=== PATIENT | female | born 1940 | race Caucasian/White ===

== ENCOUNTER 2019-01-07 03:48 | Inpatient (IN) ==
[2019-01-07] MEDS ORDERED: ONDANSETRON 4 MG ODT TABLET SL ONE ×2 (04:08→04:39)
[2019-01-07] MEDS ORDERED: ONDANSETRON (PP) 4 MG TABLET SL ONE (04:11)
[2019-01-07] MEDS ORDERED: CIPROFLOXACIN 500 MG TABLET PO ONE (04:11)
[2019-01-07] MEDS ORDERED: PHENAZOPYRIDINE 200 MG TABLET PO ONE (04:11)
[2019-01-07] MEDS ORDERED: PHENAZOPYRIDINE 200 MG PO ONE (04:12)
--- NOTE | 2019-01-07 04:14 | Emergency Department Note ---
Female Urogenital HPI - General Chief complaint: Urogenital-Female Stated complaint: urogenital female Time Seen by Provider: 01/07/19 04:11 Source: patient Mode of arrival: ambulatory Limitations: no limitations - History of Present Illness HPI Narrative: This patient has had bilateral flank pain for 4 days and is developed dysuria and frequency with a foul-smelling urine. Also some nausea this evening. - Related Data Previous Rx's Medication Instructions Recorded Ciprofloxacin [Cipro] 500 mg PO BID #14 tab 01/07/19 Ondansetron [Zofran ODT] 4 mg SL Q4-6HP PRN #10 tab 01/07/19 Allergies Allergy/AdvReac Type Severity Reaction Status Date / Time No Known Drug Allergies Allergy Unverified 01/07/19 03:49 Review of Systems All systems ED: reviewed and negative except as stated. Past Medical History - Social History smoking status: Never smoker Physical Exam Limitations: no limitations General appearance: alert Head: atraumatic Eye: Present: normal appearance ENT: normal exam Neck: Present: normal inspection Chest: Present: normal inspection Respiratory: Present: normal lung sounds bilaterally Cardiovascular: Present: regular rate, normal rhythm, normal heart sounds Abdominal: Present: soft, tenderness. Absent: distention, guarding, rebound, rigidity Abdominal tenderness: Present: suprapubic, mild Back: Present: CVA tenderness (R), CVA tenderness (L) Neurological: Present: alert Psychiatric: Present: normal affect Skin: Present: warm, dry Course Vital Signs Temperature 98.4 F 01/07/19 03:49 Pulse Rate 81 01/07/19 03:49 Respiratory Rate 18 01/07/19 03:49 Blood Pressure 141/78 01/07/19 03:49 Pulse Oximetry (%) 96 01/07/19 03:49 Temperature 100.4 F H 01/07/19 06:45 Pulse Rate 74 01/07/19 08:09 Respiratory Rate 18 01/07/19 03:49 Blood Pressure 122/60 01/07/19 07:31 Pulse Oximetry (%) 94 01/07/19 08:09 Urogenital-Female - [facility] Narrative Medical decision making narrative: This patient has a urinary tract infection but is having pretty significant back pain. She is never had a certain kidney stone she does have a lot of blood in her urine. I will do a CT KUB. Final disposition on this patient per Dr. Londono. - Lab Data Lab results reviewed: Yes I reviewed the patient's lab results. Result diagrams: 01/07/19 05:35 01/07/19 05:35 Lab Results 01/07/19 01/07/19 01/07/19 Range/Units 05:35 05:35 05:35 WBC 5.7 (4.5-11.0) K/mcL RBC 4.18 (4.00-5.20) M/mcL Hgb 13.1 (12.0-15.0) g/dL Hct 39.4 (36.0-48.0) % MCV 94.3 (80.0-100.0) fL MCH 31.3 (26.0-34.0) pg MCHC 33.3 (31.0-36.0) g/dL RDW 13.7 (11.5-14.5) % Plt Count 119 L (140-440) K/mcL MPV 6.8 L (7.4-10.4) fL Gran % 93.3 H (38.0-78.0) % Lymph % (Auto) 6.1 L (15.5-49.0) % [place] % (Auto) 0.3 L (1.0-12.0) % Eos % (Auto) 0.3 (0.0-7.0) % Baso % (Auto) 0 (0.0-2.0) % Gran # 5.3 (1.8-8.0) K/mcL Lymph # (Auto) 0.3 L (1.5-4.8) K/mcL [place] # (Auto) 0 L (0.1-0.9) K/mcL Eos # (Auto) 0 (0.0-0.7) K/mcL Baso # (Auto) 0 (0.0-0.3) K/mcL VBG Lactic Acid 2.2 H (0.5-2.0) mmol/L Sodium 142 (133-145) mmol/L Potassium 3.6 (3.3-5.1) mmol/L Chloride 107 (96-108) mmol/L Carbon Dioxide 21 L (22-30) mmol/L Anion Gap 14.0 (8-16) BUN 23 (8-23) mg/dl Creatinine 1.0 (0.6-1.1) mg/dl GFR Calculation 54 Glucose 105 (70-105) mg/dL Calcium 8.7 (8.6-10.4) mg/dl Total Bilirubin 0.8 (0.0-1.0) mg/dL AST 25 (0-37) U/l ALT 19 (0-40) U/l Alkaline Phosphatase 87 (39-117) U/L Total Protein 6.7 (5.9-8.4) gm/dL Albumin 3.7 (3.2-5.2) gm/dL Globulin 3.0 (2.2-3.7) gm/dL Albumin/Globulin Ratio 1.2 (1.0-2.3) Urine Color Urine Appearance Urine pH (5.0-9.0) Ur Specific [place] (1.000-1.035) Urine Protein (NEG) mg/dL Urine Glucose (UA) (NEG) mg/dL Urine Ketones (NEG) mg/dL Urine Occult Blood (<0.03) mg/dL Urine Nitrate (NEG) Urine Bilirubin (NEG) mg/dL Urine Urobilinogen (NEG) mg/dL Ur Leukocyte Esterase (NEG) /uL Urine RBC (0-1) /hpf Urine WBC (0-4) /hpf Ur Squamous Epith Cells (0-4) /hpf Urine Bacteria (0) /hpf Urine Mucus (0) /hpf Ur Culture Indicated? 01/07/19 Range/Units 08:00 WBC (4.5-11.0) K/mcL RBC (4.00-5.20) M/mcL Hgb (12.0-15.0) g/dL Hct (36.0-48.0) % MCV (80.0-100.0) fL MCH (26.0-34.0) pg MCHC (31.0-36.0) g/dL RDW (11.5-14.5) % Plt Count (140-440) K/mcL MPV (7.4-10.4) fL Gran % (38.0-78.0) % Lymph % (Auto) (15.5-49.0) % [place] % (Auto) (1.0-12.0) % Eos % (Auto) (0.0-7.0) % Baso % (Auto) (0.0-2.0) % Gran # (1.8-8.0) K/mcL Lymph # (Auto) (1.5-4.8) K/mcL [place] # (Auto) (0.1-0.9) K/mcL Eos # (Auto) (0.0-0.7) K/mcL Baso # (Auto) (0.0-0.3) K/mcL VBG Lactic Acid (0.5-2.0) mmol/L Sodium (133-145) mmol/L Potassium (3.3-5.1) mmol/L Chloride (96-108) mmol/L Carbon Dioxide (22-30) mmol/L Anion Gap (8-16) BUN (8-23) mg/dl Creatinine (0.6-1.1) mg/dl GFR Calculation Glucose (70-105) mg/dL Calcium (8.6-10.4) mg/dl Total Bilirubin (0.0-1.0) mg/dL AST (0-37) U/l ALT (0-40) U/l Alkaline Phosphatase (39-117) U/L Total Protein (5.9-8.4) gm/dL Albumin (3.2-5.2) gm/dL Globulin (2.2-3.7) gm/dL Albumin/Globulin Ratio (1.0-2.3) Urine Color Yellow Urine Appearance Cloudy Urine pH 6.0 (5.0-9.0) Ur Specific [place] 1.009 (1.000-1.035) Urine Protein 100 A (NEG) mg/dL Urine Glucose (UA) Negative (NEG) mg/dL Urine Ketones Neg (NEG) mg/dL Urine Occult Blood >=1.0 A (<0.03) mg/dL Urine Nitrate Neg (NEG) Urine Bilirubin Neg (NEG) mg/dL Urine Urobilinogen Neg (NEG) mg/dL Ur Leukocyte Esterase 500 A (NEG) /uL Urine RBC > 182 H (0-1) /hpf Urine WBC 160 H (0-4) /hpf Ur Squamous Epith Cells < 1 (0-4) /hpf Urine Bacteria Many A (0) /hpf Urine Mucus Few (0) /hpf Ur Culture Indicated? Yes Disposition Pt seen by SOFTWARE APPLICATIONS SPECIALIST/PA only: No Clinical Impression: Urinary tract infection Disposition: Still a Patient Condition: Good Instructions: Urinary Tract Infection in Women (ED) Prescriptions: Ciprofloxacin [Cipro] 500 mg PO BID #14 tab Ondansetron [Zofran ODT] 4 mg SL Q4-6HP PRN #10 tab PRN Reason: Nausea Referrals: Magdi Voss MD [Primary Care Provider] - Time of Disposition: 04:13
[2019-01-07] MEDS ORDERED: LACTATED RINGERS 1,000 ML IV ONE ×2 (05:19→06:41)
[2019-01-07] MEDS ORDERED: ONDANSETRON 4 MG/2 ML VIAL IV ONE ×2 (05:23→15:55)
[2019-01-07 06:27] LABS: Basophils # (Auto) 0 K/mcL (0.0-0.3); Basophils % (Auto) 0 % (0.0-2.0); Eosinophils # (Auto) 0 K/mcL (0.0-0.7); Eosinophils % (Auto) 0.3 % (0.0-7.0); Granulocytes % (Auto) 93.3 % (38.0-78.0); Hematocrit 39.4 % (36.0-48.0); Hemoglobin 13.1 g/dL (12.0-15.0); Lymphocytes # (Auto) 0.3 K/mcL (1.5-4.8); Lymphocytes % (Auto) 6.1 % (15.5-49.0); Mean Cell Volume 94.3 fL (80.0-100.0); Mean Corpuscular HGB Conc 33.3 g/dL (31.0-36.0); Mean Platelet Volume 6.8 fL (7.4-10.4); Monocytes # (Auto) 0 K/mcL (0.1-0.9); Monocytes % (Auto) 0.3 % (1.0-12.0); Platelet Count 119 K/mcL (140-440); RBC 4.18 M/mcL (4.00-5.20); Red Cell Distribution Width 13.7 % (11.5-14.5); WBC 5.7 K/mcL (4.5-11.0)
[2019-01-07 06:44] LABS: ALT/SGPT 19 U/l (0-40); AST/SGOT 25 U/l (0-37); Albumin 3.7 gm/dL (3.2-5.2); Albumin/Globulin Ratio 1.2 (1.0-2.3); Alkaline Phosphatase 87 U/L (39-117); Bilirubin,Total 0.8 mg/dL (0.0-1.0); Blood Urea Nitrogen 23 mg/dl (8-23); Calcium 8.7 mg/dl (8.6-10.4); Carbon Dioxide 21 mmol/L (22-30); Chloride 107 mmol/L (96-108); Glomerular Filtration Rate 54; Glucose 105 mg/dL (70-105); Potassium 3.6 mmol/L (3.3-5.1); Sodium 142 mmol/L (133-145)
[2019-01-07 08:53] LABS: Appearance,Urine CLOUDY; Bacteria,Urine MANY /hpf (0); Bilirubin,Urine NEG (NEG); Color,Urine YELLOW; Culture Indicated,Urine YES; Glucose,Urine (UA) NEGATIVE (NEG); Ketones,Urine NEG (NEG); Leukocyte Esterase,Urine 500 /uL (NEG); Mucus,Urine FEW /hpf (0); Nitrate,Urine NEG (NEG); Protein,Urine 100 mg/dL (NEG); Specific Gravity,Urine 1.009 (1.000-1.035); Urine Blood >=1.0 mg/dL (<0.03); Urine RBC > 182 /hpf (0-1); Urine Squamous Epithelial Cell < 1 /hpf (0-4); Urine WBC 160 /hpf (0-4); Urobilinogen,Urine NEG (NEG)
[2019-01-07] MEDS ORDERED: HYDROmorphone 2 MG/ML VIAL IV PRN (09:15)
[2019-01-07] MEDS ORDERED: ACETAMINOPHEN 325 MG TABLET PO ONE (09:16)
[2019-01-07] MEDS ORDERED: METOCLOPRAMIDE 10 MG/2 ML VIAL IV ONE (09:16)
--- NOTE | 2019-01-07 09:36 | Cat Scan Report ---
CLINICAL INFORMATION: Urinary tract infection and bilateral flank pain COMPARISON: None. TECHNIQUE: The abdomen was imaged without oral or IV contrast, scanning from the diaphragm to the symphysis pubis. Sagittal and coronal reformats were created. The radiation exposure was limited using dose reduction technology. FINDINGS: There is mild pulmonary fibrosis in both lung bases. The heart is mildly enlarged. Evaluation the abdominal organs without contrast is somewhat limited. The liver and spleen are normal in size and homogeneous. There is no apparent mass or inflammation in the pancreas. The gallbladder and bile ducts are normal. The adrenals are normal in size and symmetric. There is moderate hydronephrosis in the right kidney with milder hydronephrosis in left kidney. A 2.4 cm cortical cyst is present in the middle third of the right kidney. Patient has bubbles of air within the calyces in the right kidney. In the right renal pelvis near the ureteropelvic junction there is a 1.4 x 1.8 cm calculus. The right ureter is mildly dilated. The distal third of the right ureter there is a nonobstructing 2 x 3 mm calculus seen on axial image #138. At the right ureterovesical junction there is a 1 x 1.5 mm calculus seen on image #165. In the left kidney there are two calyceal stones which are not causing obstruction. The larger is located posteriorly in the lower third and measures 4 x 9 mm. Proximal right ureter is borderline dilated but tapers to normal caliber, without evidence of a stone or mass in or adjacent to the ureter. There is no air within the collecting system on the left side. There is low-grade stranding of the perinephric fat bilaterally. No urinoma or renal abscess are present. There is moderate amount of air within the urinary bladder and normal amount of urine. No mass is seen on this nonenhanced study and the wall does not appear to be abnormally thickened or inflamed. The uterus is absent and neither ovary can be identified separate from adjacent unopacified bowel. There are numerous diverticula throughout the colon but there is no evidence of acute diverticulitis. The small bowel pattern is normal. No adenopathy or ascites are present. There are calcified plaques along the wall of a normal caliber but mildly tortuous abdominal aorta. Severe degenerative disc disease is present in the mid and upper lumbar spine. IMPRESSION: Air within the urinary bladder and right renal collecting system. If the patient had recently been catheterized, this could account for presence of air in the bladder and the patient might have refluxed air from the bladder into the right kidney. If the patient has not been catheterized, this may be a sign of infection with a gas-forming organism. Bilateral kidney stones with bilateral hydronephrosis, right worse than left Small stones in the distal right ureter, including a 1.5 mm stone at the right ureterovesical junction. Interpreted and Authenticated by: Roland Campos 01/07/19
[2019-01-07] MEDS ORDERED: PIPERACILLIN SODIUM/TAZOBACTAM 3.375 GM in DEXTROSE 5% IN WATER 50 ML IV ONE (09:43)
--- NOTE | 2019-01-07 09:54 | XRay Report ---
HISTORY: Shortness of breath and infection FINDINGS: There is a generalized haziness in the lung parenchyma bilaterally. There is no lobar consolidation. The heart is mildly enlarged. The pulmonary vessels appear engorged. There is no pleural effusion and no adenopathy is detected. IMPRESSION: Mild pulmonary vascular congestion. Superimposed mild generalized pneumonia cannot be excluded. Interpreted and Authenticated by: Roland Campos 01/07/19
[2019-01-07] MEDS ORDERED: KETOROLAC 15 MG/ML VIAL IV ONE ×2 (10:04→21:43)
--- NOTE | 2019-01-07 10:18 | Emergency Department Note ---
Female Urogenital HPI - General Chief complaint: Urogenital-Female Stated complaint: urogenital female Time Seen by Provider: 01/07/19 04:11 Source: patient Mode of arrival: ambulatory Limitations: no limitations - History of Present Illness HPI Narrative: 9:25 AM - this 78-year-old female is here with flank pain and urinary tract type of symptoms. See history and physical dictated by Dr. goodwin. I am seeing patient after change in shift. On my exam she began to have rigors, panting breathing, be less interactive almost obtunded. Tachycardia in the 125- 130 range. I added a troponin, chest x-ray, blood cultures. 9:35 AM - poorly responsive with arms tight across her chest. Has had recent narcotics for her pain that was quite significant but does not seem to respond to palpation of her abdomen or palpation of her costovertebral angles. 9:42 AM - EKG shows flat T waves in aVL, I, V2. No ACS. 10:01 AM - CT scan report demonstrates bilateral ureteral stones with bilateral hydronephrosis. Patient therefore is a pyelo-nephritis with sepsis. Her mental status change with obtundation appears to be due to hydromorphone given for pain. Pending troponin. After that we will seek admission. Has been given Zosyn after blood cultures were administered. - Related Data Previous Rx's Medication Instructions Recorded Ciprofloxacin [Cipro] 500 mg PO BID #14 tab 01/07/19 Ondansetron [Zofran ODT] 4 mg SL Q4-6HP PRN #10 tab 01/07/19 Allergies Allergy/AdvReac Type Severity Reaction Status Date / Time No Known Drug Allergies Allergy Unverified 01/07/19 03:49 Past Medical History - Social History smoking status: Never smoker Physical Exam Limitations: no limitations General appearance: alert Course Vital Signs Temperature 98.4 F 01/07/19 03:49 Pulse Rate 81 01/07/19 03:49 Respiratory Rate 18 01/07/19 03:49 Blood Pressure 141/78 01/07/19 03:49 Pulse Oximetry (%) 96 01/07/19 03:49 Temperature 99.1 F H 01/07/19 10:37 Pulse Rate 107 H 01/07/19 14:10 Respiratory Rate 17 01/07/19 11:44 Blood Pressure 97/57 01/07/19 14:10 Pulse Oximetry (%) 92 01/07/19 11:44 Urogenital-Female - MDM Narrative Medical decision making narrative: Labs include a white count is normal surprisingly at 5.7. Lactic acid however at 2.2 CMP was unremarkable. Urine was with gross changes/ab normality of high leukocyte esterase and RBCs 182 and many bacteria. 10:07 AM - (approximately) Toradol 50 mg to help with her discomfort and fever. Creatinine was 1.0. - Lab Data Lab results reviewed: Yes I reviewed the patient's lab results. Result diagrams: 01/07/19 05:35 01/07/19 05:35 Lab Results 01/07/19 01/07/19 01/07/19 Range/Units 05:35 05:35 05:35 WBC 5.7 (4.5-11.0) K/mcL RBC 4.18 (4.00-5.20) M/mcL Hgb 13.1 (12.0-15.0) g/dL Hct 39.4 (36.0-48.0) % MCV 94.3 (80.0-100.0) fL MCH 31.3 (26.0-34.0) pg MCHC 33.3 (31.0-36.0) g/dL RDW 13.7 (11.5-14.5) % Plt Count 119 L (140-440) K/mcL MPV 6.8 L (7.4-10.4) fL Gran % 93.3 H (38.0-78.0) % Lymph % (Auto) 6.1 L (15.5-49.0) % [place] % (Auto) 0.3 L (1.0-12.0) % Eos % (Auto) 0.3 (0.0-7.0) % Baso % (Auto) 0 (0.0-2.0) % Gran # 5.3 (1.8-8.0) K/mcL Lymph # (Auto) 0.3 L (1.5-4.8) K/mcL [place] # (Auto) 0 L (0.1-0.9) K/mcL Eos # (Auto) 0 (0.0-0.7) K/mcL Baso # (Auto) 0 (0.0-0.3) K/mcL VBG Lactic Acid 2.2 H (0.5-2.0) mmol/L Sodium 142 (133-145) mmol/L Potassium 3.6 (3.3-5.1) mmol/L Chloride 107 (96-108) mmol/L Carbon Dioxide 21 L (22-30) mmol/L Anion Gap 14.0 (8-16) BUN 23 (8-23) mg/dl Creatinine 1.0 (0.6-1.1) mg/dl GFR Calculation 54 Glucose 105 (70-105) mg/dL Calcium 8.7 (8.6-10.4) mg/dl Total Bilirubin 0.8 (0.0-1.0) mg/dL AST 25 (0-37) U/l ALT 19 (0-40) U/l Alkaline Phosphatase 87 (39-117) U/L Troponin T (0-0.03) ng/ml Total Protein 6.7 (5.9-8.4) gm/dL Albumin 3.7 (3.2-5.2) gm/dL Globulin 3.0 (2.2-3.7) gm/dL Albumin/Globulin Ratio 1.2 (1.0-2.3) Urine Color Urine Appearance Urine pH (5.0-9.0) Ur Specific [place] (1.000-1.035) Urine Protein (NEG) mg/dL Urine Glucose (UA) (NEG) mg/dL Urine Ketones (NEG) mg/dL Urine Occult Blood (<0.03) mg/dL Urine Nitrate (NEG) Urine Bilirubin (NEG) mg/dL Urine Urobilinogen (NEG) mg/dL Ur Leukocyte Esterase (NEG) /uL Urine RBC (0-1) /hpf Urine WBC (0-4) /hpf Ur Squamous Epith Cells (0-4) /hpf Urine Bacteria (0) /hpf Urine Mucus (0) /hpf Ur Culture Indicated? 01/07/19 01/07/19 Range/Units 08:00 09:48 WBC (4.5-11.0) K/mcL RBC (4.00-5.20) M/mcL Hgb (12.0-15.0) g/dL Hct (36.0-48.0) % MCV (80.0-100.0) fL MCH (26.0-34.0) pg MCHC (31.0-36.0) g/dL RDW (11.5-14.5) % Plt Count (140-440) K/mcL MPV (7.4-10.4) fL Gran % (38.0-78.0) % Lymph % (Auto) (15.5-49.0) % [place] % (Auto) (1.0-12.0) % Eos % (Auto) (0.0-7.0) % Baso % (Auto) (0.0-2.0) % Gran # (1.8-8.0) K/mcL Lymph # (Auto) (1.5-4.8) K/mcL [place] # (Auto) (0.1-0.9) K/mcL Eos # (Auto) (0.0-0.7) K/mcL Baso # (Auto) (0.0-0.3) K/mcL VBG Lactic Acid (0.5-2.0) mmol/L Sodium (133-145) mmol/L Potassium (3.3-5.1) mmol/L Chloride (96-108) mmol/L Carbon Dioxide (22-30) mmol/L Anion Gap (8-16) BUN (8-23) mg/dl Creatinine (0.6-1.1) mg/dl GFR Calculation Glucose (70-105) mg/dL Calcium (8.6-10.4) mg/dl Total Bilirubin (0.0-1.0) mg/dL AST (0-37) U/l ALT (0-40) U/l Alkaline Phosphatase (39-117) U/L Troponin T < 0.01 (0-0.03) ng/ml Total Protein (5.9-8.4) gm/dL Albumin (3.2-5.2) gm/dL Globulin (2.2-3.7) gm/dL Albumin/Globulin Ratio (1.0-2.3) Urine Color Yellow Urine Appearance Cloudy Urine pH 6.0 (5.0-9.0) Ur Specific [place] 1.009 (1.000-1.035) Urine Protein 100 A (NEG) mg/dL Urine Glucose (UA) Negative (NEG) mg/dL Urine Ketones Neg (NEG) mg/dL Urine Occult Blood >=1.0 A (<0.03) mg/dL Urine Nitrate Neg (NEG) Urine Bilirubin Neg (NEG) mg/dL Urine Urobilinogen Neg (NEG) mg/dL Ur Leukocyte Esterase 500 A (NEG) /uL Urine RBC > 182 H (0-1) /hpf Urine WBC 160 H (0-4) /hpf Ur Squamous Epith Cells < 1 (0-4) /hpf Urine Bacteria Many A (0) /hpf Urine Mucus Few (0) /hpf Ur Culture Indicated? Yes - Radiology Data Radiology results reviewed: Yes I reviewed the patient's radiology results. - EKG Data EKG results narrative: No acute coronary syndrome findings. Nonspecific flattening in V2, aVL, I. Tachycardia, sinus. This ECG will be read by a garment liner. Disposition Pt seen by CHILD WELFARE DIRECTOR/PA only: No Clinical Impression: Pyelonephritis Sepsis Qualifiers: Sepsis type: sepsis due to unspecified organism Qualified Code(s): A41.9 - Sepsis, unspecified organism Summary: See Dr. goodwin's H&P. See above circumstances and happenings. Troponin was negative. I spoke with Dr. Hankins who recommended speaking with Dr. Moya because of the reported bilateral hydronephrosis. On speaking with Dr. Moya around 2:08 PM there were confusing discrepancies between what I was told as far as bilateral hydronephrosis and stones and the dictation. He is willing to consult and government/take care of patients urologic concerns. He recommends patient be admitted and general care guided by the hospitalist. 2:28 PM - I spoke with the patient who is now very alert and interactive and appropriate. Recent blood pressures however dipped as low as 77 systolic currently running in the mid 90s. Mean arterial pressure just recently was 61. I further discussed her case with Dr. Hankins who is willing to accept her care. He agrees with going ahead with levo fed for pressure support. 1/3 L of fluid is already been hung. He is aware of her being given Zosyn. I tried to clarify with patient her CODE STATUS but she was ambiguous and uncertain. She has a desire to live but does not want to live in a permanently disabled circumstance. She will consider this and think about this. Disposition: Still a Patient Condition: Good Instructions: Urinary Tract Infection in Women (ED) Prescriptions: Ciprofloxacin [Cipro] 500 mg PO BID #14 tab Ondansetron [Zofran ODT] 4 mg SL Q4-6HP PRN #10 tab PRN Reason: Nausea Referrals: Magdi Voss MD [Primary Care Provider] -
[2019-01-07] MEDS ORDERED: 0.9 % SODIUM CHLORIDE 1,000 ML IV ONE (14:21)
[2019-01-07] MEDS ORDERED: NOREPINEPHRINE BITARTRATE 16 MG in 0.9 % SODIUM CHLORIDE 234 ML IV SCH (14:45)
[2019-01-07] MEDS ORDERED: 0.9 % SODIUM CHLORIDE 250 ML IV SCH (14:45)
--- NOTE | 2019-01-07 15:20 | Internal Med History&Physical ---
Medical - H&P: [facility] Patient information: Note initiated : 01/07/19 at 3:17 pm Service Date, if different from initiated Date: [] Patient: Aby Yeung a 78 y/o F admitted on for Urogenital Female. Chief Complaint: [] Chief complaint: fever shaking chills History of present illness: Ms. Yeung is a 78 year old F who presents today with her Evans with approximately 1 week onset of progressive lower back/right flank pain along with worsening weakness. Symptoms symptoms were later followed with fevers, shaking chills, loss of appetite and nausea. Symptoms progressed to the point patient barely function and became very drowsy unable to think clearly. She was subsequently evaluated in the ER. Initial workup was consistent with septic shock with tachycardia 130s. CT scan revealed bilateral hydronephrosis along with air in urinary system. Urology was emergently consulted for decompression. Patient was started on broad antibiotic coverage/pressors and crystalloids. Patient was taken to the OR for stent placement. Hospitalist service was subsequently consulted for admission Patient was evaluated postprocedure following ureteral stent placement. He is currently on Levophed at 18 mics. She received 4 L of crystalloids. Started on vancomycin and Zosyn. Pancultures were ordered. Patient is drowsy but was able to answer simple questions. Denies chest pain, photophobia. Endorses to headache. Denies diarrhea, bloody urine. Review of systems 10 point review of system was performed and is negative except for what is discussed above Medical - H&P: PMH Medical history: History of hypertension glaucoma Degenerative joint disease dysmetabolic syndrome Pertinent family history: Nonrelevant Social history: Previous smoker Patient lives with her Medical - H&P: Meds Home Medications Medication Instructions Recorded Confirmed Type Ciprofloxacin [Cipro] 500 mg PO BID #14 tab 01/07/19 Rx Latanoprost/Pf [Latanoprost 0.005% 1 drp OU HS 01/07/19 01/07/19 History Eye Drop] Metoprolol Succinate [Toprol Xl] 25 mg PO BID 01/07/19 01/07/19 History Ondansetron [Zofran ODT] 1 - 2 tab SL Q6 PRN 01/07/19 01/07/19 History Timolol 0.5% Ophth Drops [Timoptic 1 gtt OU DAILY 01/07/19 01/07/19 History 0.5% Ophth Drops] amLODIPine BESYLATE [Amlodipine 5 mg PO DAILY 01/07/19 01/07/19 History Besylate] Allergies Allergy/AdvReac Type Severity Reaction Status Date / Time No Known Drug Allergies Allergy Unverified 01/07/19 03:49 Medical - H&P: Exam - Constitutional Vitals: Temp Pulse Resp BP Pulse Ox 99.1 F H 88 17 95/45 92 01/07/19 10:37 01/07/19 15:00 01/07/19 11:44 01/07/19 15:00 01/07/19 11:44 General appearance: moderate distress (confused and lethargic), obese Exam: Patient confused and lethargic Head normocephalic Neck no lymphadenopathy Oral cavity dry No scleral icterus S1 and S2 tachycardia grade 2 systolic murmur Bilateral symmetrical but diminished breath sounds Abdomen soft, right CVA tenderness No cyanosis clubbing or joint swelling or lymphedema Skin no suspicious lesion Psych drowsy/lethargic but able to respond Neuro moving all 4 extremities Medical - H&P: Reslt - Labs CBC & Chem 7: 01/08/19 03:55 01/08/19 03:55 Labs: Short CBC 01/07/19 Range/Units 05:35 WBC 5.7 (4.5-11.0) K/mcL Hgb 13.1 (12.0-15.0) g/dL Hct 39.4 (36.0-48.0) % Plt Count 119 L (140-440) K/mcL BMP 01/07/19 05:35 Sodium 142 Potassium 3.6 Chloride 107 Carbon Dioxide 21 L BUN 23 Creatinine 1.0 Glucose 105 Calcium 8.7 Cardiac Enzymes 01/07/19 Range/Units 09:48 Troponin T < 0.01 (0-0.03) ng/ml Liver Function 01/07/19 Range/Units 05:35 Total Bilirubin 0.8 (0.0-1.0) mg/dL AST 25 (0-37) U/l ALT 19 (0-40) U/l Alkaline Phosphatase 87 (39-117) U/L Albumin 3.7 (3.2-5.2) gm/dL Urine 01/07/19 Range/Units 08:00 Urine Color Yellow Urine Appearance Cloudy Urine pH 6.0 (5.0-9.0) Ur Specific [place] 1.009 (1.000-1.035) Urine Protein 100 A (NEG) mg/dL Urine Glucose (UA) Negative (NEG) mg/dL Medical - H&P: A/P (1) Obstructive uropathy Current visit: Yes Status: Acute * Septic shock secondary to pyonephrosis/emphysematous pyelonephritis. Continue vasopressors, brought in by coverage, and cultures, crystalloids and management per guidelines * Obstructive uropathy- secondary to nephrolithiasis. Emergent urology consult for decompression. * Pyonephrosis with emphysematous pyelonephritis-continue broad antibiotic coverage * Abdominal pain -secondary to above * History of hypertension hold antihypertensives * History of glaucoma continue medications * Full code * Prophylaxis heparin PLAN * Urology consult consult for emergent decompression and tract * Vasopressors/crystalloid/bone antibiotic coverage. * Initial [place] II score 17. * Admit to ICU Total time history and physical over 65 minutes, in addition 45 minutes critical time spent on a management of vasopressors for septic shock, fluid resuscitation and stabilization of patient. (2) Pyelonephritis Current visit: Yes Status: Acute
--- NOTE | 2019-01-07 15:49 | History and Physical Report ---
DATE OF ADMISSION: 01/07/2019 CHIEF COMPLAINT: Right hydronephrosis with obstructive pyelonephritis. HISTORY OF PRESENT ILLNESS: The patient is a 78-year-old lady who came in with flank pain and burning with urination. This has been going on for about a week, and today the pain got more severe. She did have rigors at that point and possibly tachycardia. She does not have a history of stones. A CT scan was obtained which did show a 16 x 13 mm stone in the right UPJ causing obstruction with air in the collecting system. She also has a left stone 9 x 4 mm in the lower pole of the kidney which is not causing obstruction, and small stones in the distal left ureter which are not causing obstruction. Her white count was 5.7 and her lactic acid is 2.2. Again, she states she has never had a stone before, and she presents now for evaluation. PAST MEDICAL HISTORY: Significant for arthritis and hypertension. PAST SURGICAL HISTORY: Back fusions and a hysterectomy. No cholecystectomy. ALLERGIES: None but says that she does not handle narcotics well. CURRENT MEDICATIONS: As per notes. FAMILY HISTORY: Noncontributory. SOCIAL HISTORY: Does not smoke or drink. REVIEW OF SYSTEMS: CARDIAC: Denies any chest pain. RESPIRATORY: No wheezing, coughing, or asthma. PSYCHOLOGICAL: No depression. The rest of a 12-point review of systems is negative. PHYSICAL EXAMINATION: GENERAL: This is a pleasant lady who answers all questions appropriately. HEENT: Atraumatic, normocephalic. Extraocular movements are intact. Pupils equal, reactive to light and accommodation. NECK: Supple. Trachea is in the midline. No mucosal lesions. LUNGS: Clear to auscultation. HEART: Regular rate and rhythm. ABDOMEN: Soft, nontender. Positive right CVA tenderness. : Deferred. EXTREMITIES: Without clubbing, cyanosis or edema. NEUROLOGIC: Intact. IMPRESSION: Patient with obstructive uropathy causing pyelonephritis. At this point, I feel that a stent is necessary, and I have talked to her about this. I have gone over the procedure with her and complications, including bleeding, infection, pain, non-cure of the problem, need for further hospitalization and treatment at a later time. She understands and consent was signed. We will follow up with a cystoscopy and stent placement and then place her in the ICU. [email or web address] Job ID: [id number] Doc ID: [id number] Israel Moya MD
[2019-01-07] MEDS ORDERED: fentaNYL 100 MCG/2 ML VIAL IV ONE (15:55)
[2019-01-07] MEDS ORDERED: PROPOFOL 200 MG/20 ML VIAL IV ONE (15:55)
[2019-01-07] MEDS ORDERED: PHENYLEPHRINE 10 MG/ML VIAL IV ONE (15:55)
[2019-01-07] MEDS ORDERED: LIDOCAINE HCL/PF 100 MG/5 ML SYRINGE IV ONE (15:55)
[2019-01-07] MEDS ORDERED: KETAMINE 100 MG/ML ML IV ONE (15:55)
[2019-01-07] MEDS ORDERED: MIDAZOLAM 2 MG/2 ML VIAL IV ONE (15:55)
[2019-01-07] MEDS ORDERED: GLYCOPYRROLATE 0.2 MG/ML VIAL IV ONE (15:55)
[2019-01-07] MEDS ORDERED: ESMOLOL 100 MG/10 ML VIAL IV ONE (15:55)
[2019-01-07] MEDS ORDERED: ACETAMINOPHEN 1,000 MG/100 ML BOTTLE IV ONE (16:19)
[2019-01-07] MEDS ORDERED: fentaNYL 100 MCG/2 ML VIAL IV PRN (16:19)
[2019-01-07] MEDS ORDERED: MEPERIDINE 25 MG/ML SYRINGE IV PRN (16:19)
[2019-01-07] MEDS ORDERED: KETOROLAC 15 MG/ML VIAL IV PRN (16:19)
[2019-01-07] MEDS ORDERED: IPRATROPIUM/ALBUTEROL 3 ML AMPUL.NEB NEB PRN (16:19)
[2019-01-07] MEDS ORDERED: OPIUM/BELLADONNA ALKALOIDS 60 MG SUPP.RECT PR PRN (16:19)
[2019-01-07] MEDS ORDERED: LACTATED RINGERS 1,000 ML IV SCH (16:30)
[2019-01-07] MEDS ORDERED: IOHEXOL 300 10 ML VIAL IJ ONE (16:37)
--- NOTE | 2019-01-07 17:13 | Brief Operative Note ---
Date of procedure: 01/07/19 Pre-op diagnosis: bilateral stones Post-op diagnosis: same Procedure: bitateral stents, ureteroscopy Grafts/Implants: Yes (bilateral stents) Anesthesia: GLMA Findings: see note Complications: none Surgeon: Israel Moya Specimens Removed/Pathology: none sent Condition: stable Disposition: PACU
[2019-01-07] MEDS: 0.9 % SODIUM CHLORIDE 250 ML IV SCH (18:00)
[2019-01-07] MEDS ORDERED: POTASSIUM CHLORIDE 20 MEQ PACKET PO PRN (18:46)
[2019-01-07] MEDS ORDERED: ONDANSETRON 4 MG/2 ML VIAL IV PRN (18:46)
[2019-01-07] MEDS ORDERED: VANCOMYCIN PER PHARMACY IV SCH (18:46)
[2019-01-07] MEDS ORDERED: 0.9 % SODIUM CHLORIDE 1,000 ML IV SCH (18:46)
[2019-01-07] MEDS: LACTATED RINGERS 1,000 ML IV SCH (19:15)
[2019-01-07] MEDS: PIPERACILLIN SODIUM/TAZOBACTAM 3.375 GM in DEXTROSE 5% IN WATER 50 ML IV SCH (19:39)
[2019-01-07] MEDS: ACETAMINOPHEN 1,000 MG/100 ML BOTTLE IV PRN (20:10)
[2019-01-07] MEDS: VANCOMYCIN 1,000 MG in 0.9 % SODIUM CHLORIDE 250 ML IV SCH (20:43)
[2019-01-07] MEDS: 0.9 % SODIUM CHLORIDE 10 ML SYRINGE IV SCH (22:00)
[2019-01-07] MEDS: SENNOSIDES/DOCUSATE SODIUM 1 TAB TABLET PO SCH (22:28)
[2019-01-07] MEDS: DOCUSATE SODIUM 100 MG CAPSULE PO SCH (22:28)
[2019-01-07] MEDS: HEPARIN 5,000 UNIT/ML VIAL SQ SCH (22:31)
[2019-01-07] MEDS ORDERED: HEPARIN 5,000 UNIT/ML VIAL ONE (22:34)
[2019-01-08] MEDS: PIPERACILLIN SODIUM/TAZOBACTAM 3.375 GM in DEXTROSE 5% IN WATER 50 ML IV SCH ×4 (00:34→17:46)
[2019-01-08] MEDS: ACETAMINOPHEN 1,000 MG/100 ML BOTTLE IV PRN (03:15)
[2019-01-08] MEDS: LACTATED RINGERS 1,000 ML IV SCH ×2 (05:21→15:26)
[2019-01-08] MEDS: 0.9 % SODIUM CHLORIDE 10 ML SYRINGE IV SCH ×5 (05:22→20:34)
[2019-01-08 05:53] LABS: Hematocrit 32.4 % (36.0-48.0); Hemoglobin 10.9 g/dL (12.0-15.0); Mean Cell Volume 94.4 fL (80.0-100.0); Mean Corpuscular HGB Conc 33.7 g/dL (31.0-36.0); Mean Platelet Volume 7.5 fL (7.4-10.4); Platelet Count 106 K/mcL (140-440); RBC 3.43 M/mcL (4.00-5.20); Red Cell Distribution Width 13.9 % (11.5-14.5); WBC 29.4 K/mcL (4.5-11.0)
[2019-01-08 06:21] LABS: ALT/SGPT 26 U/l (0-40); AST/SGOT 35 U/l (0-37); Albumin 2.9 gm/dL (3.2-5.2); Albumin/Globulin Ratio 1.2 (1.0-2.3); Alkaline Phosphatase 85 U/L (39-117); Bilirubin,Direct < 0.2 mg/dL (0.0-0.3); Bilirubin,Total 0.5 mg/dL (0.0-1.0); Blood Urea Nitrogen 21 mg/dl (8-23); Calcium 7.6 mg/dl (8.6-10.4); Carbon Dioxide 20 mmol/L (22-30); Chloride 109 mmol/L (96-108); Globulin 2.5 gm/dL (2.2-3.7); Glomerular Filtration Rate 39; Glucose 88 mg/dL (70-105); Lactate Dehydrogenase 262 U/L (94-250); Magnesium 1.5 mg/dL (1.6-2.5); Phosphorous 3.2 mg/dL (2.7-4.5); Potassium 4.1 mmol/L (3.3-5.1); Sodium 143 mmol/L (133-145); Triglycerides 73 mg/dl (<150); Uric Acid 3.7 mg/dL (2.5-8.0)
[2019-01-08] MEDS: 0.9 % SODIUM CHLORIDE 250 ML IV SCH (07:30)
[2019-01-08] MEDS: MAGNESIUM SULFATE 2 GM/50 ML BAG IV PRN (07:48)
--- NOTE | 2019-01-08 09:01 | Operative Note ---
DATE OF OPERATION: 01/07/2019 PREOPERATIVE DIAGNOSES: Obstructive pyelonephritis, bilateral renal stones. POSTOPERATIVE DIAGNOSES: Obstructive pyelonephritis, bilateral renal stones. PROCEDURE: Bilateral stent placement, left ureteroscopy. SURGEON: Israel Moya MD INDICATION: The patient is a 78-year-old female who had sudden onset of left flank pain today and was seen in the ER. She states the pain has been going on and off and she has had burning with urination. A CT scan was done in the emergency room which did show emphysematous pyelonephritis and she presents now for stent placement. This was on the right side. She also had hydronephrosis on the left. PROCEDURE IN DETAIL: The patient was identified and consent was signed. She was given general anesthesia, placed in lithotomy position, and prepped and draped in a standard fashion. She does have a large cystocele. We were able to identify the left orifice and were able to place a wire up mid ureter. At this point, it was very tortuous. We were able to place dye up which entered in the kidney but we could not pass the wire. We attempted using an open ended catheter and it appeared that there was a perforation. Finally, we did do a ureteroscopy and was able to see the ureter opening. Again, this was very small and stenotic. We were able to place a wire up into the kidney and a 6 x 24 stent was placed and showed a good curl in the kidney and the bladder. We then turned our attention to the right side. We were able to place a wire directly into the kidney and were able to see the stone, and we placed a 6 x 24 stent. This did not appear to be long enough so we removed the stent and placed a 6 x 26 stent. She had good curls in both the kidney and the bladder. Her bladder was drained. She was awoken and taken to the recovery room in stable condition. She tolerated the procedure well. [email or web address] Job ID: [id number] Doc ID: [id number] Israel Moya MD
--- NOTE | 2019-01-08 09:22 | Internal Med Progress Note ---
Medical - PN: Subj Patient information: Note initiated : 01/08/19 at 9:20 am Service Date, if different from initiated Date: [] Patient: Aby Yeung a 78 y/o F admitted on 01/07/19 for Urogenital Female. Chief Complaint: [] Interval history: Ms. Yeung is a 78 year old F who presents today with her Evans with approximately 1 week onset of progressive lower back/right flank pain along with worsening weakness. Symptoms symptoms were later followed with fevers, shaking chills, loss of appetite and nausea. Symptoms progressed to the point patient barely function and became very drowsy unable to think clearly. She was subsequently evaluated in the ER. Initial workup was consistent with septic shock with tachycardia 130s. CT scan revealed bilateral hydronephrosis along with air in urinary system. Urology was emergently consulted for decompression. Patient was started on broad antibiotic coverage/pressors and crystalloids. Patient was taken to the OR for stent placement. Hospitalist service was subsequently consulted for admission Patient was evaluated postprocedure following ureteral stent placement. He is currently on Levophed at 18 mics. She received 4 L of crystalloids. Started on vancomycin and Zosyn. Pancultures were ordered. Patient is drowsy but was able to answer simple questions. Denies chest pain, photophobia. Endorses to headache. Denies diarrhea, bloody urine. 01/08-patient overnight on pressors. Status post 5 L crystalloids and currently on maintenance. White count up from 5.7-29.4. However hemodynamics and urine output improving. Titrating vasopressors down to 3 mics Levophed. Patient more lucid and alert. Creatinine 30% rise since admission at 1.3. Patient remains critically ill but improved since admission. Status post bilateral ureteric st ent. Continue management per guidelines. - Constitutional Vitals: Vital Signs Temp Pulse Resp BP Pulse Ox 98.0 F 87 18 113/65 96 01/08/19 09:00 01/08/19 09:00 01/08/19 09:00 01/08/19 09:00 01/08/19 09:00 Period Temp Pulse Resp BP Sys/Chan Pulse Ox Last 24 Hr 98.0 F-101.3 F 33-127 11-32 76-149/45-104 84-98 Intake and Output 01/07/19 01/08/19 01/08/19 21:59 05:59 13:59 Intake Total 3551 1192 421 Output Total 200 1595 270 Balance 3351 -403 151 Weight 176 lb 12.8 oz Intake & Output: Intake & Output 01/07/19 01/08/19 01/08/19 21:59 05:59 13:59 Intake Total 3551 1192 421 Output Total 200 1595 270 Balance 3351 -403 151 Weight 176 lb 12.8 oz Intake: IV 1551 1192 361 Sodium Chloride 0.9% 1,000 ml @ 1000 Wide Open IV [facility] Rx#: [id number] Sodium Chloride 0.9% 250 ml @ 250 20 mls/hr IV .[id number] [facility] Rx#: [id number] Lactated Ringers 1,000 ml @ 100 1000 mls/hr IV .Q10H [facility] Rx#: [id number] Levophed 16 mg In Sodium 51 29 Chloride 0.9% 234 ml @ 10 MCG/ MIN 9.38 mls/hr IV Q24H [facility] Rx# :[id number] Zosyn 3.375 gm In Dextrose 5% 50 50 50 in Water 50 ml @ 100 mls/hr IV Q6H [facility] Rx#:[id number] Vancomycin 1,000 mg In Sodium 250 Chloride 0.9% 250 ml @ 250 mls/ hr IV Q24H [facility] Rx#:[id number] Oral 60 IV - Manual Only 1999 Output: Urine Catheter Amount 1595 270 Void Amount 200 Other: Urine Appearance Cloudy Urine Color Dark Yellow Blood Tinged Fem Cath Moore Moore Urine Odor Fem Cath Normal Normal General appearance: no acute distress Exam: Alert oriented Complains of headache Tachycardia resolved Map at goal on vasopressors Foleys draining cloudy urine 100 cc an hour Nondistended abdomen Medical - PN: Obj Da - Labs CBC & Chem 7: 01/08/19 03:55 01/08/19 03:55 Labs: Abnormal Lab Results 01/08/19 01/08/19 01/07/19 03:55 03:55 08:00 WBC 29.4 H RBC 3.43 L Hgb 10.9 L Hct 32.4 L Plt Count 106 L MPV Gran % Lymph % (Auto) [place] % (Auto) Lymph # (Auto) [place] # (Auto) VBG Lactic Acid Chloride 109 H Carbon Dioxide 20 L Creatinine 1.3 H Calcium 7.6 L Magnesium 1.5 L Lactate Dehydrogenase 262 H Total Protein 5.4 L Albumin 2.9 L Urine Protein 100 A Urine Occult Blood >=1.0 A Ur Leukocyte Esterase 500 A Urine RBC > 182 H Urine WBC 160 H Urine Bacteria Many A 01/07/19 01/07/19 01/07/19 05:35 05:35 05:35 WBC RBC Hgb Hct Plt Count 119 L MPV 6.8 L Gran % 93.3 H Lymph % (Auto) 6.1 L [place] % (Auto) 0.3 L Lymph # (Auto) 0.3 L [place] # (Auto) 0 L VBG Lactic Acid 2.2 H Chloride Carbon Dioxide 21 L Creatinine Calcium Magnesium Lactate Dehydrogenase Total Protein Albumin Urine Protein Urine Occult Blood Ur Leukocyte Esterase Urine RBC Urine WBC Urine Bacteria Meds: Medications Acetaminophen (Tylenol) 650 mg PO Q4-6HP PRN PRN Reason: PAIN/FEVER > 101 Docusate Sodium (Colace) 100 mg PO BID [facility] Last Admin: 01/07/19 22:28 Dose: Not Given Documented by: Heparin Sodium (Porcine) (Heparin) 5,000 unit SQ Q12 [facility] Last Admin: 01/07/19 22:31 Dose: 5,000 unit Documented by: Norepinephrine Bitartrate 16 (mg/ Sodium Chloride) 250 mls @ 9.38 mls/hr IV Q24H [facility]; Protocol Lactated Ringer's (Lactated Ringers) 1,000 mls @ 100 mls/hr IV .Q10H [facility] Stop: 01/09/19 00:45 Last Admin: 01/08/19 05:21 Dose: 100 mls/hr Documented by: Magnesium Sulfate (Magnesium Sulfate) 2 gm in 50 mls @ 50 mls/hr IV UD PRN PRN Reason: MG = or < 1.7 Last Infusion: 01/08/19 08:50 Dose: Infused Documented by: Sodium Chloride (Sodium Chloride 0.9%) 1,000 mls @ 0 mls/hr IV BOLUS [facility] Last Admin: 01/08/19 04:47 Dose: Not Given Documented by: Sodium Chloride (Sodium Chloride 0.9%) 250 mls @ 20 mls/hr IV .[id number] [facility] Last Admin: 01/08/19 07:30 Dose: 20 mls/hr Documented by: Acetaminophen (Ofirmev) 1,000 mg in 100 mls @ 200 mls/hr IV Q6HP PRN PRN Reason: PAIN/FEVER > 101 Last Infusion: 01/08/19 03:45 Dose: Infused Documented by: Piperacillin Sod/Tazobactam (Sod 3.375 gm/ Dextrose) 50 mls @ 100 mls/hr IV Q6H [facility]; Protocol Last Infusion: 01/08/19 06:00 Dose: Infused Documented by: Vancomycin HCl 1,000 mg/ (Sodium Chloride) 250 mls @ 250 mls/hr IV Q24H [facility] Last Infusion: 01/07/19 21:43 Dose: Infused Documented by: Ondansetron HCl (Zofran) 4 mg IV Q4-6HP PRN PRN Reason: Nausea And Vomiting Potassium Chloride (Klor-Con) 40 meq PO DAILYP PRN PRN Reason: K+ < 3.5 Senna/Docusate Sodium (Senna Plus Tablet) 1 tab PO HS [facility] Last Admin: 01/07/19 22:28 Dose: Not Given Documented by: Sodium Chloride (Saline Flush) 10 ml IV Q8 [facility] Last Admin: 01/08/19 05:22 Dose: 10 ml Documented by: Vancomycin HCl (Vancomycin Per Pharmacy) 1 order IV UD [facility]; Protocol Medical - PN: A/P - Time Spent With Patient Total time spent is greater than 50% in coordination of care (as documented) at patient's floor/unit and/or counseling patient: 25 - 35 minutes (critical care time) (1) Obstructive uropathy Status: Acute Current Visit: Yes (2) Pyelonephritis Status: Acute Assessment and plan: * Septic shock secondary to pyonephrosis/emphysematous pyelonephritis. Clinically improving. Weaning vasopressors. Map at goal. White count 29.4. Continue close hemodynamic monitoring in ICU. * Obstructive uropathy- status post stenting by urology. * Pyonephrosis with emphysematous pyelonephritis-GNR on culture. Continue broad antibiotic coverage and de-escalate based on sensitivities. * Acute kidney injury secondary to sepsis end organ dysfunction-continue monitoring. Improving urine output. * Abdominal pain -secondary to above * History of hypertension-antihypertensives on hold * History of glaucoma continue home medications * Full code * Prophylaxis heparin PLAN * Septic shock management per guidelines * Wean vasopressors * PT OT nutritional support * Restart glaucoma meds * Case management to coordinate discharge planning Current Visit: Yes Medical - PN: Qual - VTE Deep Vein Thrombosis/Pulmonary Embolism Present on Admission: No
[2019-01-08] MEDS: ACETAMINOPHEN 325 MG TABLET PO PRN ×3 (09:45→20:32)
[2019-01-08] MEDS: HEPARIN 5,000 UNIT/ML VIAL SQ SCH ×2 (09:49→20:33)
[2019-01-08] MEDS: DOCUSATE SODIUM 100 MG CAPSULE PO SCH ×2 (09:50→20:33)
[2019-01-08] MEDS: VANCOMYCIN 1,000 MG in 0.9 % SODIUM CHLORIDE 250 ML IV SCH (09:50)
[2019-01-08 10:42] LABS: Band Neutrophils % 61 % (0-10); Lymphocytes % 9 % (15-49); Metamyelocytes % 5 % (0-0); Monocytes % (Manual) 3 % (1-12); Platelet Estimate DECREASED (NORMAL); RBC Morphology NORMAL (NORMAL); Segmented Neutrophils % 22 % (38-78)
--- NOTE | 2019-01-08 13:55 | Internal Med Progress Note ---
Medical - PN: Subj Patient information: Note initiated : 01/08/19 at 1:49 pm Service Date, if different from initiated Date: [] Patient: Aby Yeung a 78 y/o F admitted on 01/07/19 for Urogenital Female. Chief Complaint: [] Interval history: Ms. Yeung is a 78 year old F who presents today with her Evans with approximately 1 week onset of progressive lower back/right flank pain along with worsening weakness. Symptoms symptoms were later followed with fevers, shaking chills, loss of appetite and nausea. Symptoms progressed to the point patient barely function and became very drowsy unable to think clearly. She was subsequently evaluated in the ER. Initial workup was consistent with septic shock with tachycardia 130s. CT scan revealed bilateral hydronephrosis along with air in urinary system. Urology was emergently consulted for decompression. Patient was started on broad antibiotic coverage/pressors and crystalloids. Patient was taken to the OR for stent placement. Hospitalist service was subsequently consulted for admission Patient was evaluated postprocedure following ureteral stent placement. He is currently on Levophed at 18 mics. She received 4 L of crystalloids. Started on vancomycin and Zosyn. Pancultures were ordered. Patient is drowsy but was able to answer simple questions. Denies chest pain, photophobia. Endorses to headache. Denies diarrhea, bloody urine. 01/08-patient overnight on pressors. Status post 5 L crystalloids and currently on maintenance. White count up from 5.7-29.4. However hemodynamics and urine output improving. Titrating vasopressors down to 3 mics Levophed. Patient more lucid and alert. Creatinine 30% rise since admission at 1.3. Patient remains critically ill but improved since admission. Status post bilateral ureteric st ent. Continue management per guidelines. 01/09 - Constitutional Vitals: Vital Signs Temp Pulse Resp BP Pulse Ox 98.4 F 79 14 105/58 91 01/08/19 12:01 01/08/19 12:01 01/08/19 12:01 01/08/19 12:01/08/19 12:01 Period Temp Pulse Resp BP Sys/Chan Pulse Ox Last 24 Hr 98.0 F-99.7 F 79-109 11-32 76-144/45-98 84-98 Intake and Output 05/01/08/19 01/08/19 21:59 05:59 13:59 Intake Total 3551 1192 920 Output Total 200 1595 570 Balance 3351 -403 350 Weight 80.195 kg 80.195 kg Patient Weight 01/09/19 05:59 Weight 80.195 kg Intake & Output: Intake & Output 01/07/19 01/08/19 01/08/19 21:59 05:59 13:59 Intake Total 3551 1192 920 Output Total 200 1595 570 Balance 3351 -403 350 Weight 80.195 kg 80.195 kg Intake: IV 1551 1192 620 Sodium Chloride 0.9% 1,000 ml @ 1000 Wide Open IV [facility] Rx#: [id number] Sodium Chloride 0.9% 250 ml @ 250 20 mls/hr IV .[id number] [facility] Rx#: [id number] Lactated Ringers 1,000 ml @ 100 1000 mls/hr IV .Q10H [facility] Rx#: [id number] Levophed 16 mg In Sodium 51 29 Chloride 0.9% 234 ml @ 10 MCG/ MIN 9.38 mls/hr IV Q24H [facility] Rx# :[id number] Zosyn 3.375 gm In Dextrose 5% 50 50 50 in Water 50 ml @ 100 mls/hr IV Q6H [facility] Rx#:[id number] Vancomycin 1,000 mg In Sodium 250 250 Chloride 0.9% 250 ml @ 250 mls/ hr IV Q24H [facility] Rx#:[id number] Oral 300 IV - Manual Only 2000 Output: Urine Catheter Amount 1595 570 Void Amount 200 Other: Meal Breakfast Percent of Meal Consumed 25% Feeding Ability Independent Urine Appearance Cloudy Fem Cath Cloudy Sediment Urine Color Dark Yellow Fem Cath [place] Dark Yellow Urine Odor Fem Cath Normal Normal Stool Size Moderate Stool Color Brown Green Stool Consistency Loose Exam: General: Alert, Awake, No acute Distress Eyes/N/T: EOMI, Head/Neck: neck supple, CV: RRR, No murmurs, Pulm: Clear b/l, no wheezing/rhonchi/rales Abd: soft, nontender, +BS x4 Ext: no clubbing/cyanosis/edema Neuro: Alert, no focal deficits, moves all extremities, Skin: warm/dry Medical - PN: Obj Da - Labs CBC & Chem 7: 01/08/19 03:55 01/08/19 03:55 Labs: Abnormal Lab Results 01/08/19 01/08/19 01/07/19 03:55 03:55 08:00 WBC 29.4 H RBC 3.43 L Hgb 10.9 L Hct 32.4 L Plt Count 106 L MPV Gran % Lymph % (Auto) [place] % (Auto) Lymph # (Auto) [place] # (Auto) Seg Neutrophils % 22 L Band Neutrophils % 61 H Lymphocytes % 9 L Metamyelocytes % 5 H WBC Morphology Abnorm A Hypersegmented Polys Rare A VBG Lactic Acid Chloride 109 H Carbon Dioxide 20 L Creatinine 1.3 H Calcium 7.6 L Magnesium 1.5 L Lactate Dehydrogenase 262 H Total Protein 5.4 L Albumin 2.9 L Urine Protein 100 A Urine Occult Blood >=1.0 A Ur Leukocyte Esterase 500 A Urine RBC > 182 H Urine WBC 160 H Urine Bacteria Many A 01/07/19 01/07/19 01/07/19 05:35 05:35 05:35 WBC RBC Hgb Hct Plt Count 119 L MPV 6.8 L Gran % 93.3 H Lymph % (Auto) 6.1 L [place] % (Auto) 0.3 L Lymph # (Auto) 0.3 L [place] # (Auto) 0 L Seg Neutrophils % Band Neutrophils % Lymphocytes % Metamyelocytes % WBC Morphology Hypersegmented Polys VBG Lactic Acid 2.2 H Chloride Carbon Dioxide 21 L Creatinine Calcium Magnesium Lactate Dehydrogenase Total Protein Albumin Urine Protein Urine Occult Blood Ur Leukocyte Esterase Urine RBC Urine WBC Urine Bacteria Meds: Medications Acetaminophen (Tylenol) 650 mg PO Q4-6HP PRN PRN Reason: PAIN/FEVER > 101 Last Admin: 01/08/19 09:45 Dose: 650 mg Documented by: Docusate Sodium (Colace) 100 mg PO BID [facility] Last Admin: 01/08/19 09:50 Dose: Not Given Documented by: Heparin Sodium (Porcine) (Heparin) 5,000 unit SQ Q12 [facility] Last Admin: 01/08/19 09:49 Dose: 5,000 unit Documented by: Norepinephrine Bitartrate 16 (mg/ Sodium Chloride) 250 mls @ 9.38 mls/hr IV Q24H [facility]; Protocol Lactated Ringer's (Lactated Ringers) 1,000 mls @ 100 mls/hr IV .Q10H [facility] Stop: 01/09/19 00:45 Last Admin: 01/08/19 05:21 Dose: 100 mls/hr Documented by: Magnesium Sulfate (Magnesium Sulfate) 2 gm in 50 mls @ 50 mls/hr IV UD PRN PRN Reason: MG = or < 1.7 Last Infusion: 01/08/19 08:50 Dose: Infused Documented by: Sodium Chloride (Sodium Chloride 0.9%) 1,000 mls @ 0 mls/hr IV BOLUS [facility] Last Admin: 01/08/19 04:47 Dose: Not Given Documented by: Sodium Chloride (Sodium Chloride 0.9%) 250 mls @ 20 mls/hr IV .[id number] [facility] Last Admin: 01/08/19 07:30 Dose: 20 mls/hr Documented by: Acetaminophen (Ofirmev) 1,000 mg in 100 mls @ 200 mls/hr IV Q6HP PRN PRN Reason: PAIN/FEVER > 101 Last Infusion: 01/08/19 03:45 Dose: Infused Documented by: Piperacillin Sod/Tazobactam (Sod 3.375 gm/ Dextrose) 50 mls @ 100 mls/hr IV Q6H [facility]; Protocol Last Admin: 01/08/19 12:41 Dose: 100 mls/hr Documented by: Vancomycin HCl 1,000 mg/ (Sodium Chloride) 250 mls @ 250 mls/hr IV Q24H [facility] Last Infusion: 01/08/19 11:13 Dose: Infused Documented by: Latanoprost (Xalatan Ophth Drops) 1 gtt OU HS [facility] Ondansetron HCl (Zofran) 4 mg IV Q4-6HP PRN PRN Reason: Nausea And Vomiting Potassium Chloride (Klor-Con) 40 meq PO DAILYP PRN PRN Reason: K+ < 3.5 Senna/Docusate Sodium (Senna Plus Tablet) 1 tab PO HS [facility] Last Admin: 01/07/19 22:28 Dose: Not Given Documented by: Sodium Chloride (Saline Flush) 10 ml IV Q8 [facility] Last Admin: 01/08/19 12:42 Dose: 10 ml Documented by: Timolol Maleate (Timoptic 0.5% Ophth Drops) 1 gtt OU DAILY [facility] Vancomycin HCl (Vancomycin Per Pharmacy) 1 order IV UD [facility]; Protocol Medical - PN: A/P - Time Spent With Patient Total time spent is greater than 50% in coordination of care (as documented) at patient's floor/unit and/or counseling patient: - Narrative A/P Narrative: A: *Septic shock: 2/2 emphysematous pyelonephritis/obstructive uropathy: -Clinically improving -Weaning vasopressors -wbc 29.4. *Obstructive uropathy: s/p b/l stenting by Dr. Moya *Pyonephrosis w/emphysematous pyelonephritis: -GNR on culture. *DELMA: 2/2 above - Improving urine output. *Abdominal pain: secondary to above *HTN: home med norvasc/Toprol *History of glaucoma continue home medications PLAN: -Septic shock management per guidelines -Wean vasopressors -Urology following -Broad-spectrum antibiotics will wean as cultures return -Hold BP meds for low blood pressure -PT OT nutritional support -Restart glaucoma meds -Case management to coordinate discharge planning -ppx: Heparin Full code Medical - PN: Qual - VTE Deep Vein Thrombosis/Pulmonary Embolism Present on Admission: No
[2019-01-08] MEDS: TIMOLOL 0.5% OPHTH DROPS BOTTLE 5ML OU SCH (14:26)
[2019-01-08] MEDS ORDERED: NOREPINEPHRINE BITARTRATE 16 MG in 0.9 % SODIUM CHLORIDE 234 ML IV SCH (15:00)
[2019-01-08] MEDS ORDERED: NOREPINEPHRINE BITARTRATE 16 MG in 0.9 % SODIUM CHLORIDE 234 ML IV PRN (15:00)
[2019-01-08] MEDS ORDERED: NAPROXEN 250 MG TABLET PO ONE (15:17)
[2019-01-08] MEDS: LATANOPROST OPHTH DROPS 2.5ML BOTTLE OU SCH (20:33)
[2019-01-08] MEDS: SENNOSIDES/DOCUSATE SODIUM 1 TAB TABLET PO SCH (20:33)
[2019-01-09] MEDS ORDERED: KETOROLAC 15 MG/ML VIAL IV ONE (02:18)
[2019-01-09] MEDS ORDERED: KETOROLAC 15 MG/ML VIAL ONE (02:23)
[2019-01-09] MEDS: 0.9 % SODIUM CHLORIDE 250 ML IV SCH ×2 (02:30→09:24)
[2019-01-09] MEDS: 0.9 % SODIUM CHLORIDE 10 ML SYRINGE IV SCH ×7 (05:40→22:16)
[2019-01-09] MEDS: PIPERACILLIN SODIUM/TAZOBACTAM 3.375 GM in DEXTROSE 5% IN WATER 50 ML IV SCH ×2 (05:40)
[2019-01-09 05:41] LABS: ALT/SGPT 22 U/l (0-40); AST/SGOT 30 U/l (0-37); Albumin 2.6 gm/dL (3.2-5.2); Alkaline Phosphatase 341 U/L (39-117); Bilirubin,Direct 0.4 mg/dL (0.0-0.3); Bilirubin,Total 0.9 mg/dL (0.0-1.0); Blood Urea Nitrogen 20 mg/dl (8-23); Calcium 7.9 mg/dl (8.6-10.4); Carbon Dioxide 19 mmol/L (22-30); Chloride 109 mmol/L (96-108); Globulin 2.7 gm/dL (2.2-3.7); Glomerular Filtration Rate 31; Glucose 75 mg/dL (70-105); Lactate Dehydrogenase 189 U/L (94-250); Magnesium 1.5 mg/dL (1.6-2.5); Phosphorous 2.1 mg/dL (2.7-4.5); Potassium 3.2 mmol/L (3.3-5.1); Sodium 139 mmol/L (133-145); Triglycerides 138 mg/dl (<150); Uric Acid 2.5 mg/dL (2.5-8.0)
[2019-01-09 06:33] LABS: Hematocrit 33.7 % (36.0-48.0); Hemoglobin 11.1 g/dL (12.0-15.0); Mean Corpuscular HGB Conc 32.9 g/dL (31.0-36.0); Mean Platelet Volume 7.5 fL (7.4-10.4); Platelet Count 65 K/mcL (140-440); RBC 3.58 M/mcL (4.00-5.20); Red Cell Distribution Width 13.9 % (11.5-14.5); WBC 3.1 K/mcL (4.5-11.0)
[2019-01-09] MEDS: ACETAMINOPHEN 1,000 MG/100 ML BOTTLE IV PRN (06:40)
[2019-01-09 06:53] LABS: Band Neutrophils % 11 % (0-10); Eosinophils % (Manual) 1 % (0-7); Lymphocytes % 7 % (15-49); Monocytes % (Manual) 11 % (1-12); Platelet Estimate DECREASED (NORMAL); RBC Morphology NORMAL (NORMAL); Segmented Neutrophils % 70 % (38-78)
[2019-01-09] MEDS: MAGNESIUM SULFATE 2 GM/50 ML BAG IV PRN (07:34)
--- NOTE | 2019-01-09 07:54 | Internal Med Progress Note ---
Medical - PN: Subj Patient information: Note initiated : 01/09/19 at 7:49 am Service Date, if different from initiated Date: [] Patient: Aby Yeung a 78 y/o F admitted on 01/07/19 for Urogenital Female. Chief Complaint: [] Interval history: Ms. Yeung is a 78 year old F who presents today with her Evans with approximately 1 week onset of progressive lower back/right flank pain along with worsening weakness. Symptoms symptoms were later followed with fevers, shaking chills, loss of appetite and nausea. Symptoms progressed to the point patient barely function and became very drowsy unable to think clearly. She was subsequently evaluated in the ER. Initial workup was consistent with septic shock with tachycardia 130s. CT scan revealed bilateral hydronephrosis along with air in urinary system. Urology was emergently consulted for decompression. Patient was started on broad antibiotic coverage/pressors and crystalloids. Patient was taken to the OR for stent placement. Hospitalist service was subsequently consulted for admission Patient was evaluated postprocedure following ureteral stent placement. He is currently on Levophed at 18 mics. She received 4 L of crystalloids. Started on vancomycin and Zosyn. Pancultures were ordered. Patient is drowsy but was able to answer simple questions. Denies chest pain, photophobia. Endorses to headache. Denies diarrhea, bloody urine. 01/08-patient overnight on pressors. Status post 5 L crystalloids and currently on maintenance. White count up from 5.7-29.4. However hemodynamics and urine output improving. Titrating vasopressors down to 3 mics Levophed. Patient more lucid and alert. Creatinine 30% rise since admission at 1.3. Patient remains critically ill but improved since admission. Status post bilateral ureteric st ent. Continue management per guidelines. 01/09 Aby had a rough night last night. Including increased back pain she had episode of nausea vomiting while up to the commode. She had some reported blood clots in Darden bag which improved. She had some what appeared to be bright red blood around her soft stool. Feeling a little better at this time. Blood pressure low earlier this morning improved currently. At home she takes a combination of aspirin and caffeine for headaches. She has chills. Vasopressors have been off since yesterday at noon. Urine output was been pretty good all day yesterday night but decreased this morning. Creatinine elevated. Review of Systems: denies chest or abdominal pain/cough/dyspnea. Otherwise see above. - Constitutional Vitals: Vital Signs Temp Pulse Resp BP Pulse Ox 99.0 F 89 22 105/66 91 01/09/19 07:01 01/09/19 07:01 01/09/19 07:01 01/09/19 07:01 01/09/19 07:01 Period Temp Pulse Resp BP Sys/Chan Pulse Ox Last 24 Hr 98.0 F-99.0 F 64-95 11-28 92-130/43-94 90-97 Intake and Output 01/08/19 01/09/19 01/09/19 21:59 05:59 13:59 Intake Total 1410 1350 150 Output Total 379 575 60 Balance 1031 775 90 Weight 80.428 kg Intake & Output: Intake & Output 01/08/19 01/09/19 01/09/19 21:59 05:59 13:59 Intake Total 1410 1350 150 Output Total 379 575 60 Balance 1031 775 90 Weight 80.428 kg Intake: IV 1050 1050 150 Lactated Ringers 1,000 ml @ 100 1000 1000 mls/hr IV .Q10H [facility] Rx#: [id number] Zosyn 3.375 gm In Dextrose 5% 50 50 50 in Water 50 ml @ 100 mls/hr IV Q6H [facility] Rx#:[id number] Oral 360 300 Output: Urine Catheter Amount 379 550 60 Emesis 25 Other: Percent of Meal Consumed 25% Feeding Ability Independent Urine Appearance Clear Hematuria Cloudy Small Blood Clots Fem Cath Sediment Hematuria Urine Color Tea Colored Blood Tinged Bright Yellow Blood Tinged Fem Cath Tea Colored Bright Red Blood Tinged Urine Odor Normal Stool Size Small Moderate Stool Color Brown Brown Dark Red Blood Stool Consistency Loose Loose # Bowel Movements 1 1 Exam: General: Alert, Awake, No acute Distress Eyes/N/T: EOMI, Head/Neck: neck supple, CV: RRR, No murmurs, Pulm: Clear b/l, no wheezing/rhonchi/rales Abd: soft, nontender, +BS x4 Ext: no clubbing/cyanosis/edema Neuro: Alert, no focal deficits, moves all extremities, Skin: warm/dry Medical - PN: Obj Da - Labs CBC & Chem 7: 01/09/19 03:45 01/09/19 03:45 Labs: Abnormal Lab Results 01/09/19 01/09/19 01/08/19 03:45 03:45 03:55 WBC 3.1 L RBC 3.58 L Hgb 11.1 L Hct 33.7 L Plt Count 65 L MPV Gran % Lymph % (Auto) Snyder % (Auto) Lymph # (Auto) Snyder # (Auto) Seg Neutrophils % Band Neutrophils % 11 H Lymphocytes % 7 L Metamyelocytes % WBC Morphology Abnorm A Hypersegmented Polys Vacuolated Neuts Occ A VBG Lactic Acid Potassium 3.2 L Chloride 109 H 109 H Carbon Dioxide 19 L 20 L Creatinine 1.6 H 1.3 H Calcium 7.9 L 7.6 L Phosphorus 2.1 L Magnesium 1.5 L 1.5 L Direct Bilirubin 0.4 H Alkaline Phosphatase 341 H Lactate Dehydrogenase 262 H Total Protein 5.3 L 5.4 L Albumin 2.6 L 2.9 L Urine Protein Urine Occult Blood Ur Leukocyte Esterase Urine RBC Urine WBC Urine Bacteria 01/08/19 01/07/19 01/07/19 03:55 08:00 05:35 WBC 29.4 H RBC 3.43 L Hgb 10.9 L Hct 32.4 L Plt Count 106 L MPV Gran % Lymph % (Auto) Snyder % (Auto) Lymph # (Auto) Snyder # (Auto) Seg Neutrophils % 22 L Band Neutrophils % 61 H Lymphocytes % 9 L Metamyelocytes % 5 H WBC Morphology Abnorm A Hypersegmented Polys Rare A Vacuolated Neuts VBG Lactic Acid 2.2 H Potassium Chloride Carbon Dioxide Creatinine Calcium Phosphorus Magnesium Direct Bilirubin Alkaline Phosphatase Lactate Dehydrogenase Total Protein Albumin Urine Protein 100 A Urine Occult Blood >=1.0 A Ur Leukocyte Esterase 500 A Urine RBC > 182 H Urine WBC 160 H Urine Bacteria Many A 01/07/19 01/07/19 05:35 05:35 WBC RBC Hgb Hct Plt Count 119 L MPV 6.8 L Gran % 93.3 H Lymph % (Auto) 6.1 L Snyder % (Auto) 0.3 L Lymph # (Auto) 0.3 L Snyder # (Auto) 0 L Seg Neutrophils % Band Neutrophils % Lymphocytes % Metamyelocytes % WBC Morphology Hypersegmented Polys Vacuolated Neuts VBG Lactic Acid Potassium Chloride Carbon Dioxide 21 L Creatinine Calcium Phosphorus Magnesium Direct Bilirubin Alkaline Phosphatase Lactate Dehydrogenase Total Protein Albumin Urine Protein Urine Occult Blood Ur Leukocyte Esterase Urine RBC Urine WBC Urine Bacteria Meds: Medications Acetaminophen (Tylenol) 650 mg PO Q4-6HP PRN PRN Reason: PAIN/FEVER > 101 Last Admin: 01/09/19 00:00 Dose: 650 mg Documented by: Docusate Sodium (Colace) 100 mg PO BID [facility] Last Admin: 01/08/19 20:33 Dose: Not Given Documented by: Heparin Sodium (Porcine) (Heparin) 5,000 unit SQ Q12 [facility] Last Admin: 01/08/19 20:33 Dose: 5,000 unit Documented by: Magnesium Sulfate (Magnesium Sulfate) 2 gm in 50 mls @ 50 mls/hr IV UD PRN PRN Reason: MG = or < 1.7 Last Admin: 01/09/19 07:34 Dose: 50 mls/hr Documented by: Sodium Chloride (Sodium Chloride 0.9%) 250 mls @ 20 mls/hr IV .[id number] [facility] Last Admin: 01/09/19 02:30 Dose: Not Given Documented by: Acetaminophen (Ofirmev) 1,000 mg in 100 mls @ 200 mls/hr IV Q6HP PRN PRN Reason: PAIN/FEVER > 101 Last Infusion: 01/09/19 07:25 Dose: Infused Documented by: Piperacillin Sod/Tazobactam (Sod 3.375 gm/ Dextrose) 50 mls @ 100 mls/hr IV Q6H [facility]; Protocol Last Infusion: 01/09/19 06:29 Dose: Infused Documented by: Vancomycin HCl 1,000 mg/ (Sodium Chloride) 250 mls @ 250 mls/hr IV Q24H [facility] Last Infusion: 01/08/19 11:13 Dose: Infused Documented by: Norepinephrine Bitartrate 16 (mg/ Sodium Chloride) 250 mls @ 9.38 mls/hr IV Q24HP PRN; Protocol PRN Reason: Hypotension Latanoprost (Xalatan Ophth Drops) 1 gtt OU HS [facility] Last Admin: 01/08/19 20:33 Dose: 1 gtt Documented by: Ondansetron HCl (Zofran) 4 mg IV Q4-6HP PRN PRN Reason: Nausea And Vomiting Last Admin: 01/09/19 02:00 Dose: 4 mg Documented by: Potassium Chloride (Klor-Con) 40 meq PO DAILYP PRN PRN Reason: K+ < 3.5 Senna/Docusate Sodium (Senna Plus Tablet) 1 tab PO HS [facility] Last Admin: 01/08/19 20:33 Dose: Not Given Documented by: Sodium Chloride (Saline Flush) 10 ml IV Q8 [facility] Last Admin: 01/09/19 07:35 Dose: 10 ml Documented by: Timolol Maleate (Timoptic 0.5% Ophth Drops) 1 gtt OU DAILY [facility] Last Admin: 01/08/19 14:26 Dose: 1 gtt Documented by: Vancomycin HCl (Vancomycin Per Pharmacy) 1 order IV UD [facility]; Protocol Medical - PN: A/P - Time Spent With Patient Total time spent is greater than 50% in coordination of care (as documented) at patient's floor/unit and/or counseling patient: - Narrative A/P Narrative: A: *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 Moya -KUB with stents in place *Pyonephrosis w/emphysematous pyelonephritis: -GNR on culture *Hematuria: 2/2 above -H&H stable *DELMA: 2/2 above - -1.6<1.3<1.0 *[facility] Bactermia, one bottle: *b/l flank pain: secondary to above *HTN: home med norvasc/Toprol *History of glaucoma continue home medications PLAN: -Septic shock management per guidelines -IVF's, monitor UOP -Wean vasopressors -Urology following, KUB pending -Broad-spectrum antibiotics will wean as cultures return -Hold BP meds for low blood pressure -PT/OT nutritional support -Restart glaucoma meds -ppx: Heparin Full code Medical - PN: Qual - VTE Deep Vein Thrombosis/Pulmonary Embolism Present on Admission: No
[2019-01-09] MEDS ORDERED: OXYBUTYNIN CHLORIDE 5 MG TABLET PO PRN (08:14)
--- NOTE | 2019-01-09 08:14 | General Surgery Progress Note ---
Surgical - Auxillary Note - Subjective Patient Information: Note initiated : 01/09/19 at 8:12 am Service Date, if different from initiated Date: [] Patient: Aby Yeung 78 y/o F admitted on 01/07/19 for Urogenital Female. Chief Complaint: [] patient had sudden onset back pain. KUB shows stents in good position. May be related gail bladder spasms. will start ditropan.
--- NOTE | 2019-01-09 08:31 | XRay Report ---
HISTORY: History: Bilateral hydronephrosis and placement of bilateral ureteral stents FINDINGS: There are by bilateral well-positioned double pigtail ureteral stents. Proximal ends are in the region of the renal pelvis and the distal ends are in the lower bladder. There are stones in both kidneys. The largest is in the central portion of the right kidney and measures 2.2 cm. In the lower pole of the left kidney there is a 6 x 7 mm stone. There is focal mildly dilated segment of small bowel in the left mid abdomen which measures 4.2 cm. This may be a focal ileus. IMPRESSION: Well-positioned bilateral ureteral stents Bilateral kidney stones Interpreted and Authenticated by: Roland Campos 01/09/19
[2019-01-09] MEDS ORDERED: ALBUMIN HUMAN 12.5 GM/50 ML BAG IV ONE (09:01)
[2019-01-09] MEDS ORDERED: 0.9 % SODIUM CHLORIDE 500 ML IV ONE (09:03)
[2019-01-09] MEDS: DOCUSATE SODIUM 100 MG CAPSULE PO SCH ×2 (09:09→22:17)
[2019-01-09] MEDS ORDERED: BUTALB/ACETAMINOPHEN/CAFFEINE 1 TABLET PO ONE (09:18)
[2019-01-09] MEDS: TIMOLOL 0.5% OPHTH DROPS BOTTLE 5ML OU SCH (09:27)
[2019-01-09] MEDS: HEPARIN 5,000 UNIT/ML VIAL SQ SCH ×2 (09:28→22:11)
[2019-01-09] MEDS ORDERED: 0.9 % SODIUM CHLORIDE 500 ML IV SCH (10:30)
[2019-01-09] MEDS ORDERED: 0.9 % SODIUM CHLORIDE 1,000 ML IV SCH (10:40)
[2019-01-09] MEDS: VANCOMYCIN 1,000 MG in 0.9 % SODIUM CHLORIDE 250 ML IV SCH (11:11)
[2019-01-09] MEDS: LOPERAMIDE 2 MG CAPSULE PO PRN ×2 (12:13→20:42)
[2019-01-09] MEDS: PIPERACILLIN SODIUM/TAZOBACTAM 2.25 GM in DEXTROSE 5% IN WATER 50 ML IV SCH ×2 (12:14→18:21)
[2019-01-09] MEDS: BUTALB/ACETAMINOPHEN/CAFFEINE 1 TABLET PO PRN ×2 (12:55→19:07)
[2019-01-09] MEDS: ACETAMINOPHEN 325 MG TABLET PO PRN ×2 (18:21)
[2019-01-09] MEDS: LATANOPROST OPHTH DROPS 2.5ML BOTTLE OU SCH (22:12)
[2019-01-09] MEDS: SENNOSIDES/DOCUSATE SODIUM 1 TAB TABLET PO SCH (22:17)
[2019-01-10] MEDS: 0.9 % SODIUM CHLORIDE 250 ML IV SCH (00:16)
[2019-01-10] MEDS: PIPERACILLIN SODIUM/TAZOBACTAM 2.25 GM in DEXTROSE 5% IN WATER 50 ML IV SCH ×6 (00:18→23:39)
[2019-01-10] MEDS: BUTALB/ACETAMINOPHEN/CAFFEINE 1 TABLET PO PRN (01:01)
[2019-01-10] MEDS: ACETAMINOPHEN 1,000 MG/100 ML BOTTLE IV PRN (01:02)
[2019-01-10 04:29] LABS: ABG Methemoglobin 0.3 % (0.4-1.5); Total Hemoglobin 9.8 gm/dL (12.0-15.0); VBG Base Excess -3.4 (-2.0-2.0); VBG Oxygen Saturation 92.4 % (40.0-70.0); VBG PCO2 35.1 mmHg (41.0-51.0); VBG PH 7.39 U (7.32-7.42); VBG PO2 79 mmHg (25-40)
[2019-01-10 04:59] LABS: Hematocrit 29.7 % (36.0-48.0); Hemoglobin 9.8 g/dL (12.0-15.0); Mean Cell Volume 94.4 fL (80.0-100.0); Mean Platelet Volume 8.7 fL (7.4-10.4); Platelet Count 67 K/mcL (140-440); RBC 3.15 M/mcL (4.00-5.20); Red Cell Distribution Width 14.3 % (11.5-14.5); WBC 20.6 K/mcL (4.5-11.0)
[2019-01-10 05:18] LABS: ALT/SGPT 21 U/l (0-40); AST/SGOT 24 U/l (0-37); Albumin 2.5 gm/dL (3.2-5.2); Alkaline Phosphatase 86 U/L (39-117); Bilirubin,Direct < 0.2 mg/dL (0.0-0.3); Bilirubin,Total 0.4 mg/dL (0.0-1.0); Blood Urea Nitrogen 26 mg/dl (8-23); Calcium 7.4 mg/dl (8.6-10.4); Carbon Dioxide 20 mmol/L (22-30); Chloride 109 mmol/L (96-108); Globulin 2.5 gm/dL (2.2-3.7); Glomerular Filtration Rate 28; Glucose 101 mg/dL (70-105); Lactate Dehydrogenase 153 U/L (94-250); Magnesium 2.1 mg/dL (1.6-2.5); Phosphorous 2.1 mg/dL (2.7-4.5); Potassium 3.8 mmol/L (3.3-5.1); Sodium 138 mmol/L (133-145); Triglycerides 126 mg/dl (<150)
[2019-01-10] MEDS: 0.9 % SODIUM CHLORIDE 10 ML SYRINGE IV SCH ×4 (05:25→23:40)
[2019-01-10 06:46] LABS: Eosinophils % (Manual) 2 % (0-7); Lymphocytes % 19 % (15-49); Monocytes % (Manual) 1 % (1-12); Platelet Estimate DECREASED (NORMAL); RBC Morphology NORMAL (NORMAL); Segmented Neutrophils % 78 % (38-78)
--- NOTE | 2019-01-10 08:21 | Internal Med Progress Note ---
Medical - PN: Subj Patient information: Note initiated : 01/10/19 at 8:12 am Service Date, if different from initiated Date: [] Patient: Aby Yeung a 78 y/o F admitted on 01/07/19 for Urogenital Female. Chief Complaint: [] Interval history: Ms. Yeung is a 78 year old F who presents today with her Evans with approximately 1 week onset of progressive lower back/right flank pain along with worsening weakness. Symptoms symptoms were later followed with fevers, shaking chills, loss of appetite and nausea. Symptoms progressed to the point patient barely function and became very drowsy unable to think clearly. She was subsequently evaluated in the ER. Initial workup was consistent with septic shock with tachycardia 130s. CT scan revealed bilateral hydronephrosis along with air in urinary system. Urology was emergently consulted for decompression. Patient was started on broad antibiotic coverage/pressors and crystalloids. Patient was taken to the OR for stent placement. Hospitalist service was subsequently consulted for admission Patient was evaluated postprocedure following ureteral stent placement. He is currently on Levophed at 18 mics. She received 4 L of crystalloids. Started on vancomycin and Zosyn. Pancultures were ordered. Patient is drowsy but was able to answer simple questions. Denies chest pain, photophobia. Endorses to headache. Denies diarrhea, bloody urine. 01/08-patient overnight on pressors. Status post 5 L crystalloids and currently on maintenance. White count up from 5.7-29.4. However hemodynamics and urine output improving. Titrating vasopressors down to 3 mics Levophed. Patient more lucid and alert. Creatinine 30% rise since admission at 1.3. Patient remains critically ill but improved since admission. Status post bilateral ureteric st ent. Continue management per guidelines. 01/09 Aby had a rough night last night. Including increased back pain she had episode of nausea vomiting while up to the commode. She had some reported blood clots in Darden bag which improved. She had some what appeared to be bright red blood around her soft stool. Feeling a little better at this time. Blood pressure low earlier this morning improved currently. At home she takes a combination of aspirin and caffeine for headaches. She has chills. Vasopressors have been off since yesterday at noon. Urine output was been pretty good all day yesterday night but decreased this morning. Creatinine elevated. 6/2 Much better last night and feels much better this morning. Has a mild headache but much improved. Diarrhea, C. difficile negative, using Imodium T-max 100.7 yesterday 8:00pm. Widely fluctuating WBC, has not needed any vasopressors since stopping on the . Creatinine similar yesterday Review of Systems: denies chest or abdominal pain/cough/dyspnea. Otherwise see above. - Constitutional Vitals: Vital Signs Temp Pulse Resp BP Pulse Ox 99.3 F H 68 16 96/55 96 01/10/19 07:00 01/10/19 07:00 01/10/19 07:00 01/10/19 07:00 01/10/19 07:00 Period Temp Pulse Resp BP Sys/Chan Pulse Ox Last 24 Hr 98.3 F-100.7 F 66-89 12-20 83-126/47-90 90-96 Intake and Output 01/09/19 01/10/19 01/10/19 21:59 05:59 13:59 Intake Total 910 1298 50 Output Total 410 405 110 Balance 500 893 -60 Weight 80.428 kg Intake & Output: Intake & Output 01/09/19 01/10/19 01/10/19 21:59 05:59 13:59 Intake Total 910 1298 50 Output Total 410 405 110 Balance 500 893 -60 Weight 80.428 kg Intake: IV 550 638 50 Sodium Chloride 0.9% 250 ml @ 0 20 mls/hr IV .[id number] [facility] Rx#: [id number] Zosyn 2.25 gm In Dextrose 5% in 50 50 50 Water 50 ml @ 100 mls/hr IV Q6H [facility] Rx#:[id number] Oral 360 660 Output: Urine Catheter Amount 410 405 110 Other: Meal Dinner Percent of Meal Consumed 50% Feeding Ability Independent Urine Appearance Cloudy Cloudy Fem Cath Cloudy Urine Color Red Brown Red Brown Dark Yellow Fem Cath Dark Red Red Brown Blood Tinged Exam: General: Alert, Awake, No acute Distress Eyes/N/T: EOMI, Head/Neck: neck supple, CV: RRR, No murmurs, Pulm: Clear b/l, no wheezing/rhonchi/rales Abd: soft, nontender, +BS x4 Ext: no clubbing/cyanosis, 1-2+b/l LE edema Neuro: Alert, no focal deficits, moves all extremities, Skin: warm/dry Medical - PN: Obj Da - Labs CBC & Chem 7: 01/10/19 03:45 01/10/19 03:45 Labs: Abnormal Lab Results 01/10/19 01/10/19 01/10/19 03:45 03:45 03:45 WBC 20.6 H RBC 3.15 L Hgb 9.8 L Hct 29.7 L Plt Count 67 L Seg Neutrophils % Band Neutrophils % Lymphocytes % Metamyelocytes % WBC Morphology Hypersegmented Polys Vacuolated Neuts ABG Methemoglobin 0.3 L VBG pCO2 35.1 L VBG pO2 79 H VBG HCO3 21.0 L VBG Total CO2 22.0 L VBG O2 Saturation 92.4 H VBG Base Excess -3.4 L Carboxyhemoglobin 3.0 H Total Hemoglobin 9.8 L Potassium Chloride 109 H Carbon Dioxide 20 L BUN 26 H Creatinine 1.7 H Calcium 7.4 L Phosphorus 2.1 L Magnesium Direct Bilirubin Alkaline Phosphatase Lactate Dehydrogenase Total Protein 5.0 L Albumin 2.5 L Urine Protein Urine Occult Blood Ur Leukocyte Esterase Urine RBC Urine WBC Urine Bacteria 01/09/19 01/09/19 01/08/19 03:45 03:45 03:55 WBC 3.1 L RBC 3.58 L Hgb 11.1 L Hct 33.7 L Plt Count 65 L Seg Neutrophils % Band Neutrophils % 11 H Lymphocytes % 7 L Metamyelocytes % WBC Morphology Abnorm A Hypersegmented Polys Vacuolated Neuts Occ A ABG Methemoglobin VBG pCO2 VBG pO2 VBG HCO3 VBG Total CO2 VBG O2 Saturation VBG Base Excess Carboxyhemoglobin Total Hemoglobin Potassium 3.2 L Chloride 109 H 109 H Carbon Dioxide 19 L 20 L BUN Creatinine 1.6 H 1.3 H Calcium 7.9 L 7.6 L Phosphorus 2.1 L Magnesium 1.5 L 1.5 L Direct Bilirubin 0.4 H Alkaline Phosphatase 341 H Lactate Dehydrogenase 262 H Total Protein 5.3 L 5.4 L Albumin 2.6 L 2.9 L Urine Protein Urine Occult Blood Ur Leukocyte Esterase Urine RBC Urine WBC Urine Bacteria 01/08/19 01/07/19 03:55 08:00 WBC 29.4 H RBC 3.43 L Hgb 10.9 L Hct 32.4 L Plt Count 106 L Seg Neutrophils % 22 L Band Neutrophils % 61 H Lymphocytes % 9 L Metamyelocytes % 5 H WBC Morphology Abnorm A Hypersegmented Polys Rare A Vacuolated Neuts ABG Methemoglobin VBG pCO2 VBG pO2 VBG HCO3 VBG Total CO2 VBG O2 Saturation VBG Base Excess Carboxyhemoglobin Total Hemoglobin Potassium Chloride Carbon Dioxide BUN Creatinine Calcium Phosphorus Magnesium Direct Bilirubin Alkaline Phosphatase Lactate Dehydrogenase Total Protein Albumin Urine Protein 100 A Urine Occult Blood >=1.0 A Ur Leukocyte Esterase 500 A Urine RBC > 182 H Urine WBC 160 H Urine Bacteria Many A Meds: Medications Acetaminophen (Tylenol) 650 mg PO Q4-6HP PRN PRN Reason: PAIN/FEVER > 101 Last Admin: 01/09/19 18:21 Dose: 650 mg Documented by: Acetaminophen/Butalbital/Caffeine (Fioricet) 1 tab PO Q6HP PRN PRN Reason: Headache Last Admin: 01/10/19 01:01 Dose: 1 tab Documented by: Docusate Sodium (Colace) 100 mg PO BID [facility] Last Admin: 01/09/19 22:17 Dose: Not Given Documented by: Heparin Sodium (Porcine) (Heparin) 5,000 unit SQ Q12 [facility] Last Admin: 01/09/19 22:11 Dose: 5,000 unit Documented by: Magnesium Sulfate (Magnesium Sulfate) 2 gm in 50 mls @ 50 mls/hr IV UD PRN PRN Reason: MG = or < 1.7 Last Infusion: 01/09/19 08:35 Dose: Infused Documented by: Sodium Chloride (Sodium Chloride 0.9%) 250 mls @ 20 mls/hr IV .[id number] [facility] Last Admin: 01/10/19 00:16 Dose: Not Given Documented by: Acetaminophen (Ofirmev) 1,000 mg in 100 mls @ 200 mls/hr IV Q6HP PRN PRN Reason: PAIN/FEVER > 101 Last Infusion: 01/10/19 02:02 Dose: Infused Documented by: Vancomycin HCl 1,000 mg/ (Sodium Chloride) 250 mls @ 250 mls/hr IV Q24H [facility] Last Infusion: 01/09/19 12:13 Dose: Infused Documented by: Norepinephrine Bitartrate 16 (mg/ Sodium Chloride) 250 mls @ 9.38 mls/hr IV Q24HP PRN; Protocol PRN Reason: Hypotension Piperacillin Sod/Tazobactam (Sod 2.25 gm/ Dextrose) 50 mls @ 100 mls/hr IV Q6H [facility] Last Infusion: 01/10/19 06:00 Dose: Infused Documented by: Latanoprost (Xalatan Ophth Drops) 1 gtt OU HS [facility] Last Admin: 01/09/19 22:12 Dose: 1 gtt Documented by: Loperamide HCl (Imodium) 2 mg PO PRN PRN PRN Reason: Diarrhea Last Admin: 01/09/19 20:42 Dose: 2 mg Documented by: Ondansetron HCl (Zofran) 4 mg IV Q4-6HP PRN PRN Reason: Nausea And Vomiting Last Admin: 01/09/19 02:00 Dose: 4 mg Documented by: Oxybutynin Chloride (Ditropan) 5 mg PO TIDP PRN PRN Reason: BLADDER SPASMS Potassium Chloride (Klor-Con) 40 meq PO DAILYP PRN PRN Reason: K+ < 3.5 Last Admin: 01/09/19 14:39 Dose: 40 meq Documented by: Senna/Docusate Sodium (Senna Plus Tablet) 1 tab PO HS [facility] Last Admin: 01/09/19 22:17 Dose: Not Given Documented by: Sodium Chloride (Saline Flush) 10 ml IV Q8 [facility] Last Admin: 01/10/19 05:25 Dose: 10 ml Documented by: Timolol Maleate (Timoptic 0.5% Ophth Drops) 1 gtt OU DAILY [facility] Last Admin: 01/09/19 09:27 Dose: 1 gtt Documented by: Vancomycin HCl (Vancomycin Per Pharmacy) 1 order IV UD [facility]; Protocol - ABG Interpretation ABG results: 01/10/19 03:45 ABG Methemoglobin 0.3 L VBG pH 7.39 VBG pCO2 35.1 L VBG pO2 79 H VBG HCO3 21.0 L VBG Total CO2 22.0 L VBG O2 Saturation 92.4 H VBG Base Excess -3.4 L Medical - PN: A/P - Time Spent With Patient Total time spent is greater than 50% in coordination of care (as documented) at patient's floor/unit and/or counseling patient: - Narrative A/P Narrative: A: *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 Nita BROWN with stents in place *Pyonephrosis w/emphysematous pyelonephritis: -GNR on culture *Hematuria: 2/2 above -H&H stable *DELMA, likely ATN from above: 2/2 above - -1.7<1.6<1.3<1.0 *[facility] Bactermia, one bottle: *b/l flank pain: secondary to above *HTN: home med norvasc/Toprol *History of glaucoma continue home medications *Thrombocytopenia: 2/2 sepsis -119 on admit, then 106>65>67; low 4t score for HIT 2 PLAN: -IVF's, monitor UOP -Urology following, -Broad-spectrum antibiotics will wean as cultures return -Hold BP meds for low blood pressure -PT/OT nutritional support -Restarted glaucoma meds -ppx: heparin Full code Medical - PN: Qual - VTE Deep Vein Thrombosis/Pulmonary Embolism Present on Admission: No
[2019-01-10] MEDS: TIMOLOL 0.5% OPHTH DROPS BOTTLE 5ML OU SCH (08:49)
[2019-01-10] MEDS: DOCUSATE SODIUM 100 MG CAPSULE PO SCH ×2 (08:50→21:27)
[2019-01-10] MEDS ORDERED: POTASSIUM CHLORIDE 20 MEQ in 0.45 % SODIUM CHLORIDE 1,000 ML IV SCH ×2 (09:00→12:31)
[2019-01-10] MEDS: VANCOMYCIN 1,000 MG in 0.9 % SODIUM CHLORIDE 250 ML IV SCH (09:48)
[2019-01-10 10:22] LABS: Appearance,Urine CLOUDY; Bacteria,Urine 0 /hpf (0); Bilirubin,Urine NEG (NEG); Color,Urine YELLOW; Culture Indicated,Urine YES; Glucose,Urine (UA) NEGATIVE (NEG); Ketones,Urine NEG (NEG); Leukocyte Esterase,Urine 500 /uL (NEG); Mucus,Urine FEW /hpf (0); Nitrate,Urine NEG (NEG); Protein,Urine 100 mg/dL (NEG); Urine Blood >=1.0 mg/dL (<0.03); Urine RBC > 182 /hpf (0-1); Urine Squamous Epithelial Cell 1 /hpf (0-4); Urine WBC > 182 /hpf (0-4); Urobilinogen,Urine NEG (NEG)
[2019-01-10] MEDS: HEPARIN 5,000 UNIT/ML VIAL SQ SCH ×2 (11:00→21:28)
[2019-01-10] MEDS: CALCIUM CARBONATE 500 MG TAB.CHEW CHEWED PRN ×2 (11:04→21:27)
[2019-01-10] MEDS ORDERED: ACETAMINOPHEN 1,000 MG/100 ML BOTTLE IV PRN (12:31)
[2019-01-10] MEDS ORDERED: VANCOMYCIN PER PHARMACY IV SCH (12:31)
[2019-01-10] MEDS ORDERED: NOREPINEPHRINE BITARTRATE 16 MG in 0.9 % SODIUM CHLORIDE 234 ML IV PRN (12:31)
[2019-01-10] MEDS ORDERED: OXYBUTYNIN CHLORIDE 5 MG TABLET PO PRN (12:31)
[2019-01-10] MEDS ORDERED: ONDANSETRON 4 MG/2 ML VIAL IV PRN (12:31)
[2019-01-10] MEDS ORDERED: MAGNESIUM SULFATE 2 GM/50 ML BAG IV PRN (12:31)
[2019-01-10] MEDS ORDERED: POTASSIUM CHLORIDE 20 MEQ PACKET PO PRN (12:31)
[2019-01-10] MEDS: SENNOSIDES/DOCUSATE SODIUM 1 TAB TABLET PO SCH (21:28)
[2019-01-10] MEDS: LATANOPROST OPHTH DROPS 2.5ML BOTTLE OU SCH (21:36)
[2019-01-11 04:59] LABS: Hemoglobin 10.3 g/dL (12.0-15.0); Mean Corpuscular HGB Conc 33.3 g/dL (31.0-36.0); Mean Platelet Volume 8.6 fL (7.4-10.4); Platelet Count 79 K/mcL (140-440); Red Cell Distribution Width 14.3 % (11.5-14.5); WBC 13.7 K/mcL (4.5-11.0)
[2019-01-11] MEDS: 0.9 % SODIUM CHLORIDE 10 ML SYRINGE IV SCH ×4 (05:23→20:58)
[2019-01-11] MEDS: PIPERACILLIN SODIUM/TAZOBACTAM 2.25 GM in DEXTROSE 5% IN WATER 50 ML IV SCH ×4 (05:23→23:58)
[2019-01-11 05:31] LABS: ALT/SGPT 17 U/l (0-40); AST/SGOT 17 U/l (0-37); Albumin 2.2 gm/dL (3.2-5.2); Albumin/Globulin Ratio 0.8 (1.0-2.3); Alkaline Phosphatase 94 U/L (39-117); Bilirubin,Direct < 0.2 mg/dL (0.0-0.3); Bilirubin,Total 0.4 mg/dL (0.0-1.0); Blood Urea Nitrogen 21 mg/dl (8-23); Calcium 7.9 mg/dl (8.6-10.4); Carbon Dioxide 21 mmol/L (22-30); Chloride 109 mmol/L (96-108); Globulin 2.7 gm/dL (2.2-3.7); Glomerular Filtration Rate 48; Glucose 89 mg/dL (70-105); Lactate Dehydrogenase 140 U/L (94-250); Phosphorous 2.1 mg/dL (2.7-4.5); Potassium 4.1 mmol/L (3.3-5.1); Sodium 138 mmol/L (133-145); Triglycerides 210 mg/dl (<150)
--- NOTE | 2019-01-11 07:28 | Internal Med Progress Note ---
Medical - PN: Subj Patient information: Note initiated : 01/11/19 at 7:25 am Service Date, if different from initiated Date: [] Patient: Aby Yeung a 78 y/o F admitted on 01/07/19 for Urogenital Female. Chief Complaint: [] Interval history: Ms. Yeung is a 78 year old F who presents today with her Evans with approximately 1 week onset of progressive lower back/right flank pain along with worsening weakness. Symptoms symptoms were later followed with fevers, shaking chills, loss of appetite and nausea. Symptoms progressed to the point patient barely function and became very drowsy unable to think clearly. She was subsequently evaluated in the ER. Initial workup was consistent with septic shock with tachycardia 130s. CT scan revealed bilateral hydronephrosis along with air in urinary system. Urology was emergently consulted for decompression. Patient was started on broad antibiotic coverage/pressors and crystalloids. Patient was taken to the OR for stent placement. Hospitalist service was subsequently consulted for admission Patient was evaluated postprocedure following ureteral stent placement. He is currently on Levophed at 18 mics. She received 4 L of crystalloids. Started on vancomycin and Zosyn. Pancultures were ordered. Patient is drowsy but was able to answer simple questions. Denies chest pain, photophobia. Endorses to headache. Denies diarrhea, bloody urine. 01/08-patient overnight on pressors. Status post 5 L crystalloids and currently on maintenance. White count up from 5.7-29.4. However hemodynamics and urine output improving. Titrating vasopressors down to 3 mics Levophed. Patient more lucid and alert. Creatinine 30% rise since admission at 1.3. Patient remains critically ill but improved since admission. Status post bilateral ureteric st ent. Continue management per guidelines. 01/09 Aby had a rough night last night. Including increased back pain she had episode of nausea vomiting while up to the commode. She had some reported blood clots in Darden bag which improved. She had some what appeared to be bright red blood around her soft stool. Feeling a little better at this time. Blood pressure low earlier this morning improved currently. At home she takes a combination of aspirin and caffeine for headaches. She has chills. Vasopressors have been off since yesterday at noon. Urine output was been pretty good all day yesterday night but decreased this morning. Creatinine elevated. 6/2 Much better last night and feels much better this morning. Has a mild headache but much improved. Diarrhea, C. difficile negative, using Imodium T-max 100.7 yesterday 8:00pm. Widely fluctuating WBC, has not needed any vasopressors since stopping on the . Creatinine similar yesterday 3 Slept all right between nurse checks and the alarming IV pole. Has a little bit of a cough and some achiness but otherwise no complaints and feeling better. Bowel movements are thickening up. Review of Systems: denies chest or abdominal pain/cough/dyspnea. Otherwise see above. - Constitutional Vitals: Vital Signs Temp Pulse Resp BP Pulse Ox 98.3 F 68 16 110/63 91 01/11/19 06:44 01/11/19 03:33 01/11/19 06:44 01/11/19 06:44 01/11/19 06:44 Period Temp Pulse Resp BP Sys/Chan Pulse Ox Last 24 Hr 97.8 F-99.0 F 67-82 14-20 98-118/60-89 91-97 Intake and Output 01/10/19 01/11/19 01/11/19 21:59 05:59 13:59 Intake Total 242 131 7845 Output Total 850 1450 Balance -560 -1350 1010 Weight 82.327 kg Intake & Output: Intake & Output 01/10/19 01/11/19 01/11/19 21:59 05:59 13:59 Intake Total 338 742 6134 Output Total 850 1450 Balance -560 -1350 1010 Weight 82.327 kg Intake: IV 50 50 1010 Zosyn 2.25 gm In Dextrose 5% in 50 50 Water 50 ml @ 100 mls/hr IV Q6H [facility] Rx#:[id number] Oral 240 50 Output: Urine Catheter Amount 850 1450 Other: Meal Dinner Percent of Meal Consumed 75% Feeding Ability Independent Urine Appearance Clear Fem Cath Sediment Sediment Urine Color Light Diana Fem Cath Red Brown Red Brown Urine Odor Strong Exam: General: Alert, Awake, No acute Distress Eyes/N/T: EOMI, Head/Neck: neck supple, CV: RRR, No murmurs, Pulm: Clear b/l, no wheezing/rhonchi/rales Abd: soft, nontender, +BS x4 Ext: no clubbing/cyanosis, 2+b/l LE edema Neuro: Alert, no focal deficits, moves all extremities, Skin: warm/dry Medical - PN: Obj Da - Labs CBC & Chem 7: 01/11/19 04:05 01/11/19 04:05 Labs: Abnormal Lab Results 01/11/19 01/11/19 01/10/19 04:05 04:05 09:20 WBC 13.7 H RBC 3.30 L Hgb 10.3 L Hct 31.0 L Plt Count 79 L Seg Neutrophils % Band Neutrophils % Lymphocytes % Metamyelocytes % WBC Morphology Hypersegmented Polys Vacuolated Neuts ABG Methemoglobin VBG pCO2 VBG pO2 VBG HCO3 VBG Total CO2 VBG O2 Saturation VBG Base Excess Carboxyhemoglobin Total Hemoglobin Potassium Chloride 109 H Carbon Dioxide 21 L BUN Creatinine Calcium 7.9 L Phosphorus 2.1 L Magnesium Direct Bilirubin Alkaline Phosphatase Total Protein 4.9 L Albumin 2.2 L Albumin/Globulin Ratio 0.8 L Triglycerides 210 H Urine Protein 100 A Urine Occult Blood >=1.0 A Ur Leukocyte Esterase 500 A Urine RBC > 182 H Urine WBC > 182 H 01/10/19 01/10/19 01/10/19 03:45 03:45 03:45 WBC 20.6 H RBC 3.15 L Hgb 9.8 L Hct 29.7 L Plt Count 67 L Seg Neutrophils % Band Neutrophils % Lymphocytes % Metamyelocytes % WBC Morphology Hypersegmented Polys Vacuolated Neuts ABG Methemoglobin 0.3 L VBG pCO2 35.1 L VBG pO2 79 H VBG HCO3 21.0 L VBG Total CO2 22.0 L VBG O2 Saturation 92.4 H VBG Base Excess -3.4 L Carboxyhemoglobin 3.0 H Total Hemoglobin 9.8 L Potassium Chloride 109 H Carbon Dioxide 20 L BUN 26 H Creatinine 1.7 H Calcium 7.4 L Phosphorus 2.1 L Magnesium Direct Bilirubin Alkaline Phosphatase Total Protein 5.0 L Albumin 2.5 L Albumin/Globulin Ratio Triglycerides Urine Protein Urine Occult Blood Ur Leukocyte Esterase Urine RBC Urine WBC 01/09/19 01/09/19 01/08/19 03:45 03:45 03:55 WBC 3.1 L RBC 3.58 L Hgb 11.1 L Hct 33.7 L Plt Count 65 L Seg Neutrophils % 22 L Band Neutrophils % 11 H 61 H Lymphocytes % 7 L 9 L Metamyelocytes % 5 H WBC Morphology Abnorm A Abnorm A Hypersegmented Polys Rare A Vacuolated Neuts Occ A ABG Methemoglobin VBG pCO2 VBG pO2 VBG HCO3 VBG Total CO2 VBG O2 Saturation VBG Base Excess Carboxyhemoglobin Total Hemoglobin Potassium 3.2 L Chloride 109 H Carbon Dioxide 19 L BUN Creatinine 1.6 H Calcium 7.9 L Phosphorus 2.1 L Magnesium 1.5 L Direct Bilirubin 0.4 H Alkaline Phosphatase 341 H Total Protein 5.3 L Albumin 2.6 L Albumin/Globulin Ratio Triglycerides Urine Protein Urine Occult Blood Ur Leukocyte Esterase Urine RBC Urine WBC Meds: Medications Acetaminophen (Tylenol) 650 mg PO Q4-6HP PRN PRN Reason: PAIN/FEVER > 101 Acetaminophen/Butalbital/Caffeine (Fioricet) 1 tab PO Q6HP PRN PRN Reason: Headache Calcium Carbonate/Glycine (Tums) 500 mg CHEWED Q4HP PRN PRN Reason: Dyspepsia Last Admin: 01/10/19 21:27 Dose: 500 mg Documented by: Docusate Sodium (Colace) 100 mg PO BID [facility] Last Admin: 01/10/19 21:27 Dose: Not Given Documented by: Heparin Sodium (Porcine) (Heparin) 5,000 unit SQ Q12 [facility] Last Admin: 01/10/19 21:28 Dose: 5,000 unit Documented by: Magnesium Sulfate (Magnesium Sulfate) 2 gm in 50 mls @ 50 mls/hr IV UD PRN PRN Reason: MG = or < 1.7 Norepinephrine Bitartrate 16 (mg/ Sodium Chloride) 250 mls @ 9.38 mls/hr IV Q24HP PRN; Protocol PRN Reason: Hypotension Acetaminophen (Ofirmev) 1,000 mg in 100 mls @ 200 mls/hr IV Q6HP PRN PRN Reason: PAIN/FEVER > 101 Piperacillin Sod/Tazobactam (Sod 2.25 gm/ Dextrose) 50 mls @ 100 mls/hr IV Q6H [facility] Last Admin: 01/11/19 05:23 Dose: 100 mls/hr Documented by: Vancomycin HCl 1,000 mg/ (Sodium Chloride) 250 mls @ 250 mls/hr IV DAILY [facility] Latanoprost (Xalatan Ophth Drops) 1 gtt OU HS [facility] Last Admin: 01/10/19 21:36 Dose: 1 gtt Documented by: Loperamide HCl (Imodium) 2 mg PO PRN PRN PRN Reason: Diarrhea Ondansetron HCl (Zofran) 4 mg IV Q4-6HP PRN PRN Reason: Nausea And Vomiting Oxybutynin Chloride (Ditropan) 5 mg PO TIDP PRN PRN Reason: BLADDER SPASMS Potassium Chloride (Klor-Con) 40 meq PO DAILYP PRN PRN Reason: K+ < 3.5 Senna/Docusate Sodium (Senna Plus Tablet) 1 tab PO HS [facility] Last Admin: 01/10/19 21:28 Dose: Not Given Documented by: Sodium Chloride (Saline Flush) 10 ml IV Q8 [facility] Last Admin: 01/11/19 05:23 Dose: 10 ml Documented by: Timolol Maleate (Timoptic 0.5% Ophth Drops) 1 gtt OU DAILY [facility] Vancomycin HCl (Vancomycin Per Pharmacy) 1 order IV UD [facility]; Protocol - ABG Interpretation ABG results: 01/10/19 03:45 ABG Methemoglobin 0.3 L VBG pH 7.39 VBG pCO2 35.1 L VBG pO2 79 H VBG HCO3 21.0 L VBG Total CO2 22.0 L VBG O2 Saturation 92.4 H VBG Base Excess -3.4 L Medical - PN: A/P - Time Spent With Patient Total time spent is greater than 50% in coordination of care (as documented) at patient's floor/unit and/or counseling patient: - Narrative A/P Narrative: A: *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 Moya -[facility] with stents in place *Pyonephrosis w/emphysematous pyelonephritis: -UC neg *Hematuria: 2/2 above, resolved -H&H stable *DELMA: 2/2 above, resolved -1.1<1.7<1.6<1.3<1.0 *[facility] Bactermia, one bottle: *b/l flank pain: secondary to above, improved *HTN: home med norvasc/Toprol *History of glaucoma continue home medications *Thrombocytopenia: 2/2 sepsis -119 on admit, then 106>65>67>79; low 4t score for HIT 2 PLAN: -monitor UOP -Urology following, -Broad-spectrum antibiotics will wean as cultures return -awaiting Micro no blood cx -Hold BP meds for low blood pressure, restart as able -PT/OT nutritional support -Restarted glaucoma meds -ppx: heparin Full code Medical - PN: Qual - VTE Deep Vein Thrombosis/Pulmonary Embolism Present on Admission: No
[2019-01-11] MEDS ORDERED: ALBUMIN HUMAN 12.5 GM/50 ML BAG IV ONE (07:48)
[2019-01-11] MEDS ORDERED: FUROSEMIDE 40 MG/4 ML VIAL IV ONE (07:48)
[2019-01-11] MEDS: LOPERAMIDE 2 MG CAPSULE PO PRN (08:01)
[2019-01-11] MEDS: DOCUSATE SODIUM 100 MG CAPSULE PO SCH ×2 (08:02→20:57)
[2019-01-11] MEDS: ACETAMINOPHEN 325 MG TABLET PO PRN ×2 (08:16→22:05)
[2019-01-11] MEDS: HEPARIN 5,000 UNIT/ML VIAL SQ SCH ×2 (08:17→22:04)
[2019-01-11] MEDS ORDERED: VANCOMYCIN 1,000 MG in 0.9 % SODIUM CHLORIDE 250 ML IV SCH (09:00)
[2019-01-11 09:10] LABS: Band Neutrophils % 4 % (0-10); Eosinophils % (Manual) 2 % (0-7); Hypochromasia FEW (NONE SEEN); Lymphocytes % 17 % (15-49); Metamyelocytes % 1 % (0-0); Monocytes % (Manual) 2 % (1-12); Myelocytes % 2 % (0-0); Platelet Estimate DECREASED (NORMAL); RBC Morphology ABNORM (NORMAL); Reactive Lymphocytes 1 % (0-2); Segmented Neutrophils % 71 % (38-78)
[2019-01-11] MEDS: TIMOLOL 0.5% OPHTH DROPS BOTTLE 5ML OU SCH (09:54)
[2019-01-11] MEDS: SENNOSIDES/DOCUSATE SODIUM 1 TAB TABLET PO SCH (20:57)
[2019-01-11] MEDS: LATANOPROST OPHTH DROPS 2.5ML BOTTLE OU SCH (22:12)
[2019-01-12 05:40] LABS: Hematocrit 31.1 % (36.0-48.0); Hemoglobin 10.4 g/dL (12.0-15.0); Mean Cell Volume 93.2 fL (80.0-100.0); Mean Corpuscular HGB Conc 33.6 g/dL (31.0-36.0); Mean Platelet Volume 8.4 fL (7.4-10.4); Platelet Count 93 K/mcL (140-440); RBC 3.33 M/mcL (4.00-5.20); Red Cell Distribution Width 13.9 % (11.5-14.5); WBC 10.1 K/mcL (4.5-11.0)
[2019-01-12 05:48] LABS: ALT/SGPT 15 U/l (0-40); AST/SGOT 16 U/l (0-37); Albumin 2.6 gm/dL (3.2-5.2); Alkaline Phosphatase 92 U/L (39-117); Bilirubin,Direct < 0.2 mg/dL (0.0-0.3); Bilirubin,Total 0.5 mg/dL (0.0-1.0); Blood Urea Nitrogen 17 mg/dl (8-23); Calcium 8.2 mg/dl (8.6-10.4); Carbon Dioxide 25 mmol/L (22-30); Chloride 107 mmol/L (96-108); Globulin 2.6 gm/dL (2.2-3.7); Glomerular Filtration Rate 54; Glucose 91 mg/dL (70-105); Lactate Dehydrogenase 149 U/L (94-250); Magnesium 1.8 mg/dL (1.6-2.5); Phosphorous 2.8 mg/dL (2.7-4.5); Potassium 3.2 mmol/L (3.3-5.1); Sodium 141 mmol/L (133-145); Triglycerides 229 mg/dl (<150); Uric Acid 3.7 mg/dL (2.5-8.0)
[2019-01-12] MEDS: PIPERACILLIN SODIUM/TAZOBACTAM 2.25 GM in DEXTROSE 5% IN WATER 50 ML IV SCH ×3 (05:49→18:11)
[2019-01-12 06:31] LABS: Band Neutrophils % 6 % (0-10); Eosinophils % (Manual) 3 % (0-7); Lymphocytes % 20 % (15-49); Metamyelocytes % 2 % (0-0); Monocytes % (Manual) 12 % (1-12); Platelet Estimate DECREASED (NORMAL); RBC Morphology NORMAL (NORMAL); Reactive Lymphocytes 3 % (0-2); Segmented Neutrophils % 54 % (38-78)
--- NOTE | 2019-01-12 07:20 | Internal Med Progress Note ---
Medical - PN: Subj Patient information: Note initiated : 01/12/19 at 7:17 am Service Date, if different from initiated Date: [] Patient: Aby Yeung a 78 y/o F admitted on 01/07/19 for Urogenital Female. Chief Complaint: [] Interval history: Ms. Yeung is a 78 year old F who presents today with her Evans with approximately 1 week onset of progressive lower back/right flank pain along with worsening weakness. Symptoms symptoms were later followed with fevers, shaking chills, loss of appetite and nausea. Symptoms progressed to the point patient barely function and became very drowsy unable to think clearly. She was subsequently evaluated in the ER. Initial workup was consistent with septic shock with tachycardia 130s. CT scan revealed bilateral hydronephrosis along with air in urinary system. Urology was emergently consulted for decompression. Patient was started on broad antibiotic coverage/pressors and crystalloids. Patient was taken to the OR for stent placement. Hospitalist service was subsequently consulted for admission Patient was evaluated postprocedure following ureteral stent placement. He is currently on Levophed at 18 mics. She received 4 L of crystalloids. Started on vancomycin and Zosyn. Pancultures were ordered. Patient is drowsy but was able to answer simple questions. Denies chest pain, photophobia. Endorses to headache. Denies diarrhea, bloody urine. 01/08-patient overnight on pressors. Status post 5 L crystalloids and currently on maintenance. White count up from 5.7-29.4. However hemodynamics and urine output improving. Titrating vasopressors down to 3 mics Levophed. Patient more lucid and alert. Creatinine 30% rise since admission at 1.3. Patient remains critically ill but improved since admission. Status post bilateral ureteric st ent. Continue management per guidelines. 01/09 Aby had a rough night last night. Including increased back pain she had episode of nausea vomiting while up to the commode. She had some reported blood clots in [place]arden bag which improved. She had some what appeared to be bright red blood around her soft stool. Feeling a little better at this time. Blood pressure low earlier this morning improved currently. At home she takes a combination of aspirin and caffeine for headaches. She has chills. Vasopressors have been off since yesterday at noon. Urine output was been pretty good all day yesterday night but decreased this morning. Creatinine elevated. 6/2 Much better last night and feels much better this morning. Has a mild headache but much improved. Diarrhea, C. difficile negative, using Imodium T-max 100.7 yesterday 8:00pm. Widely fluctuating WBC, has not needed any vasopressors since stopping on the . Creatinine similar yesterday 01/11 Slept all right between nurse checks and the alarming IV pole. Has a little bit of a cough and some achiness but otherwise no complaints and feeling better. Bowel movements are thickening up. 01/12 Slept on and off. No overnight events. Still very weak but overall feeling better. Review of Systems: denies chest or abdominal pain/cough/dyspnea. Otherwise see above. - Constitutional Vitals: Vital Signs Temp Pulse Resp BP Pulse Ox 98.3 F 64 18 139/71 91 01/12/19 04:02 01/12/19 04:02 01/12/19 04:02 01/12/19 04:02 01/12/19 04:02 Period Temp Pulse Resp BP Sys/Chan Pulse Ox Last 24 Hr 97.6 F-99.2 F 64-76 16-20 123-139/68-76 90-92 Intake and Output 01/11/19 01/12/19 01/12/19 21:59 05:59 13:59 Intake Total 290 890 Output Total 1125 1400 Balance -835 -510 Weight 82.1 kg Intake & Output: Intake & Output 01/11/19 01/12/19 01/12/19 21:59 05:59 13:59 Intake Total 290 890 Output Total 1125 1400 Balance -835 -510 Weight 82.1 kg Intake: IV 50 50 Zosyn 2.25 gm In Dextrose 5% in 50 50 Water 50 ml @ 100 mls/hr IV Q6H [facility] Rx#:[id number] Oral 240 840 Output: Urine Catheter Amount 1125 1400 Other: Meal Dinner Percent of Meal Consumed 50% Urine Appearance Clear Clear Fem Cath Cloudy Cloudy Sediment Urine Color Pale Tea Colored Fem Cath Bright Yellow Bright Yellow Urine Odor Normal Normal Exam: General: Alert, Awake, No acute Distress Eyes/N/T: EOMI, Head/Neck: neck supple, CV: RRR, No murmurs, Pulm: Clear b/l, no wheezing/rhonchi/rales Abd: soft, nontender, +BS x4 Ext: no clubbing/cyanosis, 1+ b/l LE edema Neuro: Alert, no focal deficits, moves all extremities, Skin: warm/dry Medical - PN: Obj Da - Labs CBC & Chem 7: 01/12/19 04:00 01/12/19 04:00 Labs: Abnormal Lab Results 01/12/19 01/12/19 01/11/19 04:00 04:00 04:05 WBC RBC 3.33 L Hgb 10.4 L Hct 31.1 L Plt Count 93 L Metamyelocytes % 2 H Myelocytes % Reactive Lymphocytes 3 H RBC Morphology Hypochromasia ABG Methemoglobin VBG pCO2 VBG pO2 VBG HCO3 VBG Total CO2 VBG O2 Saturation VBG Base Excess Carboxyhemoglobin Total Hemoglobin Potassium 3.2 L Chloride 109 H Carbon Dioxide 21 L BUN Creatinine Calcium 8.2 L 7.9 L Phosphorus 2.1 L Total Protein 5.2 L 4.9 L Albumin 2.6 L 2.2 L Albumin/Globulin Ratio 0.8 L Triglycerides 229 H 210 H Urine Protein Urine Occult Blood Ur Leukocyte Esterase Urine RBC Urine WBC 01/11/19 01/10/19 01/10/19 04:05 09:20 03:45 WBC 13.7 H RBC 3.30 L Hgb 10.3 L Hct 31.0 L Plt Count 79 L Metamyelocytes % 1 H Myelocytes % 2 H Reactive Lymphocytes RBC Morphology Abnorm A Hypochromasia Few A ABG Methemoglobin 0.3 L VBG pCO2 35.1 L VBG pO2 79 H VBG HCO3 21.0 L VBG Total CO2 22.0 L VBG O2 Saturation 92.4 H VBG Base Excess -3.4 L Carboxyhemoglobin 3.0 H Total Hemoglobin 9.8 L Potassium Chloride Carbon Dioxide BUN Creatinine Calcium Phosphorus Total Protein Albumin Albumin/Globulin Ratio Triglycerides Urine Protein 100 A Urine Occult Blood >=1.0 A Ur Leukocyte Esterase 500 A Urine RBC > 182 H Urine WBC > 182 H 01/10/19 01/10/19 03:45 03:45 WBC 20.6 H RBC 3.15 L Hgb 9.8 L Hct 29.7 L Plt Count 67 L Metamyelocytes % Myelocytes % Reactive Lymphocytes RBC Morphology Hypochromasia ABG Methemoglobin VBG pCO2 VBG pO2 VBG HCO3 VBG Total CO2 VBG O2 Saturation VBG Base Excess Carboxyhemoglobin Total Hemoglobin Potassium Chloride 109 H Carbon Dioxide 20 L BUN 26 H Creatinine 1.7 H Calcium 7.4 L Phosphorus 2.1 L Total Protein 5.0 L Albumin 2.5 L Albumin/Globulin Ratio Triglycerides Urine Protein Urine Occult Blood Ur Leukocyte Esterase Urine RBC Urine WBC Meds: Medications Acetaminophen (Tylenol) 650 mg PO Q4-6HP PRN PRN Reason: PAIN/FEVER > 101 Last Admin: 01/11/19 22:05 Dose: 650 mg Documented by: Acetaminophen/Butalbital/Caffeine (Fioricet) 1 tab PO Q6HP PRN PRN Reason: Headache Calcium Carbonate/Glycine (Tums) 500 mg CHEWED Q4HP PRN PRN Reason: Dyspepsia Last Admin: 01/10/19 21:27 Dose: 500 mg Documented by: Docusate Sodium (Colace) 100 mg PO BID [facility] Last Admin: 01/11/19 20:57 Dose: Not Given Documented by: Heparin Sodium (Porcine) (Heparin) 5,000 unit SQ Q12 [facility] Last Admin: 01/11/19 22:04 Dose: Not Given Documented by: Magnesium Sulfate (Magnesium Sulfate) 2 gm in 50 mls @ 50 mls/hr IV UD PRN PRN Reason: MG = or < 1.7 Norepinephrine Bitartrate 16 (mg/ Sodium Chloride) 250 mls @ 9.38 mls/hr IV Q24HP PRN; Protocol PRN Reason: Hypotension Acetaminophen (Ofirmev) 1,000 mg in 100 mls @ 200 mls/hr IV Q6HP PRN PRN Reason: PAIN/FEVER > 101 Piperacillin Sod/Tazobactam (Sod 2.25 gm/ Dextrose) 50 mls @ 100 mls/hr IV Q6H [facility] Last Admin: 01/12/19 05:49 Dose: 100 mls/hr Documented by: Latanoprost (Xalatan Ophth Drops) 1 gtt OU HS [facility] Last Admin: 01/11/19 22:12 Dose: 1 gtt Documented by: Loperamide HCl (Imodium) 2 mg PO PRN PRN PRN Reason: Diarrhea Last Admin: 01/11/19 08:01 Dose: 2 mg Documented by: Ondansetron HCl (Zofran) 4 mg IV Q4-6HP PRN PRN Reason: Nausea And Vomiting Oxybutynin Chloride (Ditropan) 5 mg PO TIDP PRN PRN Reason: BLADDER SPASMS Potassium Chloride (Klor-Con) 40 meq PO DAILYP PRN PRN Reason: K+ < 3.5 Senna/Docusate Sodium (Senna Plus Tablet) 1 tab PO HS [facility] Last Admin: 01/11/19 20:57 Dose: Not Given Documented by: Sodium Chloride (Saline Flush) 10 ml IV Q8 [facility] Last Admin: 01/11/19 20:58 Dose: Not Given Documented by: Timolol Maleate (Timoptic 0.5% Ophth Drops) 1 gtt OU DAILY [facility] Last Admin: 01/11/19 09:54 Dose: 1 drop Documented by: - ABG Interpretation ABG results: 01/10/19 03:45 ABG Methemoglobin 0.3 L VBG pH 7.39 VBG pCO2 35.1 L VBG pO2 79 H VBG HCO3 21.0 L VBG Total CO2 22.0 L VBG O2 Saturation 92.4 H VBG Base Excess -3.4 L Medical - PN: A/P - Time Spent With Patient Total time spent is greater than 50% in coordination of care (as documented) at patient's floor/unit and/or counseling patient: - Narrative A/P Narrative: A: *Septic shock: 2/2 emphysematous pyelonephritis/obstructive uropathy: resolved -Off vasopressors as of 01/08 -leukocytosis/bandemia resolved *Obstructive uropathy: s/p b/l stenting by Dr. Nita BROWN with stents in place *Pyonephrosis w/emphysematous pyelonephritis: -UC neg *Hematuria: 2/2 above, resolved -H&H stable *DELMA: 2/2 above, resolved *[facility] Bactermia, one bottle: contaminant 01/07 and likely 01/09 *b/l flank pain: secondary to above, improved *HTN: home med norvasc/Toprol *History of glaucoma continue home medications *Thrombocytopenia: 2/2 sepsis -improving PLAN: -Urology following, -Broad-spectrum antibiotics will wean as cultures return - -restart home BP meds -PT/OT nutritional support -Restarted glaucoma meds -ppx: heparin Full code Medical - PN: Qual - VTE Deep Vein Thrombosis/Pulmonary Embolism Present on Admission: No
[2019-01-12] MEDS ORDERED: FUROSEMIDE 40 MG/4 ML VIAL IV ONE (07:37)
[2019-01-12] MEDS ORDERED: ALBUMIN HUMAN 12.5 GM/50 ML BAG IV ONE (07:37)
[2019-01-12] MEDS ORDERED: FUROSEMIDE 20 MG/2 ML VIAL IV ONE (08:39)
[2019-01-12] MEDS: ACETAMINOPHEN 325 MG TABLET PO PRN ×2 (09:34→18:10)
[2019-01-12] MEDS: 0.9 % SODIUM CHLORIDE 10 ML SYRINGE IV SCH ×3 (09:34→21:33)
[2019-01-12] MEDS: METOPROLOL SUCCINATE 25 MG TAB.XL.24H PO SCH ×2 (09:34→21:32)
[2019-01-12] MEDS: TIMOLOL 0.5% OPHTH DROPS BOTTLE 5ML OU SCH (09:44)
[2019-01-12] MEDS: HEPARIN 5,000 UNIT/ML VIAL SQ SCH ×2 (09:45→21:31)
[2019-01-12] MEDS: DOCUSATE SODIUM 100 MG CAPSULE PO SCH ×2 (09:45→21:31)
[2019-01-12] MEDS: LOPERAMIDE 2 MG CAPSULE PO PRN (09:48)
[2019-01-12] MEDS: SENNOSIDES/DOCUSATE SODIUM 1 TAB TABLET PO SCH (21:31)
[2019-01-12] MEDS: LATANOPROST OPHTH DROPS 2.5ML BOTTLE OU SCH (21:32)
[2019-01-13] MEDS: PIPERACILLIN SODIUM/TAZOBACTAM 2.25 GM in DEXTROSE 5% IN WATER 50 ML IV SCH ×3 (00:09→11:19)
[2019-01-13] MEDS: ACETAMINOPHEN 325 MG TABLET PO PRN (00:10)
[2019-01-13] MEDS: BUTALB/ACETAMINOPHEN/CAFFEINE 1 TABLET PO PRN ×2 (05:03→20:29)
[2019-01-13] MEDS: 0.9 % SODIUM CHLORIDE 10 ML SYRINGE IV SCH ×4 (05:04→20:28)
[2019-01-13] MEDS ORDERED: VANCOMYCIN PER PHARMACY IV SCH (06:23)
[2019-01-13] MEDS: DOCUSATE SODIUM 100 MG CAPSULE PO SCH ×2 (08:02→20:28)
[2019-01-13] MEDS: HEPARIN 5,000 UNIT/ML VIAL SQ SCH ×2 (08:03→20:28)
[2019-01-13] MEDS: TIMOLOL 0.5% OPHTH DROPS BOTTLE 5ML OU SCH (08:04)
[2019-01-13] MEDS: METOPROLOL SUCCINATE 25 MG TAB.XL.24H PO SCH ×2 (08:10→20:28)
[2019-01-13 08:34] LABS: Basophils # (Auto) 0 K/mcL (0.0-0.3); Basophils % (Auto) 0.2 % (0.0-2.0); Eosinophils # (Auto) 0.5 K/mcL (0.0-0.7); Eosinophils % (Auto) 4.3 % (0.0-7.0); Granulocytes % (Auto) 65.1 % (38.0-78.0); Hemoglobin 11.9 g/dL (12.0-15.0); Lymphocytes # (Auto) 2.3 K/mcL (1.5-4.8); Lymphocytes % (Auto) 20.7 % (15.5-49.0); Mean Cell Volume 92.5 fL (80.0-100.0); Mean Corpuscular HGB Conc 33.9 g/dL (31.0-36.0); Mean Platelet Volume 7.8 fL (7.4-10.4); Monocytes # (Auto) 1.1 K/mcL (0.1-0.9); Monocytes % (Auto) 9.7 % (1.0-12.0); Platelet Count 156 K/mcL (140-440); RBC 3.78 M/mcL (4.00-5.20); Red Cell Distribution Width 13.8 % (11.5-14.5); WBC 11.4 K/mcL (4.5-11.0)
[2019-01-13 09:02] LABS: ALT/SGPT 17 U/l (0-40); AST/SGOT 21 U/l (0-37); Albumin 3.3 gm/dL (3.2-5.2); Albumin/Globulin Ratio 1.1 (1.0-2.3); Alkaline Phosphatase 92 U/L (39-117); Bilirubin,Direct < 0.2 mg/dL (0.0-0.3); Bilirubin,Total 0.6 mg/dL (0.0-1.0); Blood Urea Nitrogen 14 mg/dl (8-23); Calcium 8.6 mg/dl (8.6-10.4); Carbon Dioxide 26 mmol/L (22-30); Chloride 104 mmol/L (96-108); Glomerular Filtration Rate 61; Glucose 100 mg/dL (70-105); Lactate Dehydrogenase 253 U/L (94-250); Magnesium 1.8 mg/dL (1.6-2.5); Potassium 3.4 mmol/L (3.3-5.1); Sodium 142 mmol/L (133-145); Triglycerides 288 mg/dl (<150); Uric Acid 3.3 mg/dL (2.5-8.0)
[2019-01-13] MEDS: VANCOMYCIN 1,000 MG in 0.9 % SODIUM CHLORIDE 250 ML IV SCH ×2 (09:11→20:27)
--- NOTE | 2019-01-13 11:07 | Internal Med Progress Note ---
Medical - PN: Subj Patient information: Note initiated : 01/13/19 at 11:05 am Service Date, if different from initiated Date: [] Patient: Aby Yeung a 78 y/o F admitted on 01/07/19 for Urogenital Female. Chief Complaint: [] Interval history: Ms. Yeung is a 78 year old F who presents today with her Evans with approximately 1 week onset of progressive lower back/right flank pain along with worsening weakness. Symptoms symptoms were later followed with fevers, shaking chills, loss of appetite and nausea. Symptoms progressed to the point patient barely function and became very drowsy unable to think clearly. She was subsequently evaluated in the ER. Initial workup was consistent with septic shock with tachycardia 130s. CT scan revealed bilateral hydronephrosis along with air in urinary system. Urology was emergently consulted for decompression. Patient was started on broad antibiotic coverage/pressors and crystalloids. Patient was taken to the OR for stent placement. Hospitalist service was subsequently consulted for admission Patient was evaluated postprocedure following ureteral stent placement. He is currently on Levophed at 18 mics. She received 4 L of crystalloids. Started on vancomycin and Zosyn. Pancultures were ordered. Patient is drowsy but was able to answer simple questions. Denies chest pain, photophobia. Endorses to headache. Denies diarrhea, bloody urine. 01/08-patient overnight on pressors. Status post 5 L crystalloids and currently on maintenance. White count up from 5.7-29.4. However hemodynamics and urine output improving. Titrating vasopressors down to 3 mics Levophed. Patient more lucid and alert. Creatinine 30% rise since admission at 1.3. Patient remains critically ill but improved since admission. Status post bilateral ureteric st ent. Continue management per guidelines. 01/09 Aby had a rough night last night. Including increased back pain she had episode of nausea vomiting while up to the commode. She had some reported blood clots in [place] bag which improved. She had some what appeared to be bright red blood around her soft stool. Feeling a little better at this time. Blood pressure low earlier this morning improved currently. At home she takes a combination of aspirin and caffeine for headaches. She has chills. Vasopressors have been off since yesterday at noon. Urine output was been pretty good all day yesterday night but decreased this morning. Creatinine elevated. 6/2 Much better last night and feels much better this morning. Has a mild headache but much improved. Diarrhea, C. difficile negative, using Imodium T-max 100.7 yesterday 8:00pm. Widely fluctuating WBC, has not needed any vasopressors since stopping on the . Creatinine similar yesterday 01/11 Slept all right between nurse checks and the alarming IV pole. Has a little bit of a cough and some achiness but otherwise no complaints and feeling better. Bowel movements are thickening up. 01/12 Slept on and off. No overnight events. Still very weak but overall feeling better. 01/13 Patient seen examined, no acute issues, tolerating po diet well she did have some headache yesterday Blood cultures positive, initially thought to be a contaminant, will get ID opinion on further treatment plan Pt has vertigo/ unable to use meclizine due to glaucoma, will see if PT can evaluate for sahronda maneuver. Pertinent ROS: Denies headache, dizziness Denies chest pain, palpitations Denies cough or shortness of breath Denies abdominal pain, nausea or vomiting. headache resolved by this AM, no nause this AM - Constitutional Vitals: Vital Signs Temp Pulse Resp BP Pulse Ox 97.3 F 63 18 141/88 93 01/13/19 08:00 01/13/19 08:00 01/13/19 08:00 01/13/19 08:00 01/13/19 08:00 Period Temp Pulse Resp BP Sys/Chan Pulse Ox Last 24 Hr 97.3 F-98.8 F 60-93 18-20 113-155/71-90 93-94 Intake and Output 01/12/19 01/13/19 01/13/19 21:59 05:59 13:59 Intake Total 50 475 490 Output Total 1200 390 400 Balance -1150 85 90 Weight 181 lb 8 oz Intake & Output: Intake & Output 01/12/19 01/13/19 01/13/19 21:59 05:59 13:59 Intake Total 50 475 490 Output Total 1200 390 400 Balance -1150 85 90 Weight 181 lb 8 oz Intake: IV 50 50 250 Zosyn 2.25 gm In Dextrose 5% in 50 50 Water 50 ml @ 100 mls/hr IV Q6H [facility] Rx#:[id number] Vancomycin 1,000 mg In Sodium 250 Chloride 0.9% 250 ml @ 250 mls/ hr IV Q12H [facility] Rx#:[id number] Oral 425 240 Output: Urine Catheter Amount 900 Void Amount 300 390 400 Other: Meal Breakfast Percent of Meal Consumed 100% Urine Appearance Clear Clear Sediment Urine Color Bright Yellow Straw Light Diana Urine Odor Normal Normal Stool Size Moderate Stool Color Brown Black Stool Consistency Soft # Voids 1 Exam: Constitutional; Afebrile, cooperative, alert, not in distress. Respiratory system: Air Entry equal on both sides, No crackles or wheezing, no rhonchi. CVS- Rate rhythm regular, S1,S2 heard, no gallop, no rub., did not see any pacemaker, or implant. Abdomen- Soft nontender abdomen, no organomegaly, no tenderness, no guarding or rigidity, [employer]AT[employer]- AOOx3, moving all extremities, no gross focal deficit noted. Medical - PN: Obj Da - Labs CBC & Chem 7: 01/13/19 07:47 01/13/19 07:47 Labs: Abnormal Lab Results 01/13/19 01/13/19 01/12/19 07:47 07:47 04:00 WBC 11.4 H RBC 3.78 L Hgb 11.9 L Hct 35.0 L Plt Count [place] # (Auto) 1.1 H Metamyelocytes % Myelocytes % Reactive Lymphocytes RBC Morphology Hypochromasia Potassium 3.2 L Chloride Carbon Dioxide Calcium 8.2 L Phosphorus GGT 38 H Lactate Dehydrogenase 253 H Total Protein 5.2 L Albumin 2.6 L Albumin/Globulin Ratio Triglycerides 288 H 229 H 01/12/19 01/11/19 01/11/19 04:00 04:05 04:05 WBC 13.7 H RBC 3.33 L 3.30 L Hgb 10.4 L 10.3 L Hct 31.1 L 31.0 L Plt Count 93 L 79 L [place] # (Auto) Metamyelocytes % 2 H 1 H Myelocytes % 2 H Reactive Lymphocytes 3 H RBC Morphology Abnorm A Hypochromasia Few A Potassium Chloride 109 H Carbon Dioxide 21 L Calcium 7.9 L Phosphorus 2.1 L GGT Lactate Dehydrogenase Total Protein 4.9 L Albumin 2.2 L Albumin/Globulin Ratio 0.8 L Triglycerides 210 H Meds: Medications Acetaminophen (Tylenol) 650 mg PO Q4-6HP PRN PRN Reason: PAIN/FEVER > 101 Last Admin: 01/13/19 00:10 Dose: 650 mg Documented by: Acetaminophen/Butalbital/Caffeine (Fioricet) 1 tab PO Q6HP PRN PRN Reason: Headache Last Admin: 01/13/19 05:03 Dose: 1 tab Documented by: Calcium Carbonate/Glycine (Tums) 500 mg CHEWED Q4HP PRN PRN Reason: Dyspepsia Last Admin: 01/10/19 21:27 Dose: 500 mg Documented by: Docusate Sodium (Colace) 100 mg PO BID [facility] Last Admin: 01/13/19 08:02 Dose: Not Given Documented by: Heparin Sodium (Porcine) (Heparin) 5,000 unit SQ Q12 [facility] Last Admin: 01/13/19 08:03 Dose: 5,000 unit Documented by: Magnesium Sulfate (Magnesium Sulfate) 2 gm in 50 mls @ 50 mls/hr IV UD PRN PRN Reason: MG = or < 1.7 Norepinephrine Bitartrate 16 (mg/ Sodium Chloride) 250 mls @ 9.38 mls/hr IV Q24HP PRN; Protocol PRN Reason: Hypotension Acetaminophen (Ofirmev) 1,000 mg in 100 mls @ 200 mls/hr IV Q6HP PRN PRN Reason: PAIN/FEVER > 101 Piperacillin Sod/Tazobactam (Sod 2.25 gm/ Dextrose) 50 mls @ 100 mls/hr IV Q6H [facility] Last Admin: 01/13/19 05:04 Dose: 100 mls/hr Documented by: Vancomycin HCl 1,000 mg/ (Sodium Chloride) 250 mls @ 250 mls/hr IV Q12H [facility] Last Infusion: 01/13/19 10:30 Dose: Infused Documented by: Latanoprost (Xalatan Ophth Drops) 1 gtt OU HS [facility] Last Admin: 01/12/19 21:32 Dose: 1 gtt Documented by: Loperamide HCl (Imodium) 2 mg PO PRN PRN PRN Reason: Diarrhea Last Admin: 01/12/19 09:48 Dose: 2 mg Documented by: Metoprolol Succinate (Toprol Xl) 25 mg PO BID [facility] Last Admin: 01/13/19 08:10 Dose: 25 mg Documented by: Ondansetron HCl (Zofran) 4 mg IV Q4-6HP PRN PRN Reason: Nausea And Vomiting Oxybutynin Chloride (Ditropan) 5 mg PO TIDP PRN PRN Reason: BLADDER SPASMS Potassium Chloride (Klor-Con) 40 meq PO DAILYP PRN PRN Reason: K+ < 3.5 Senna/Docusate Sodium (Senna Plus Tablet) 1 tab PO HS [facility] Last Admin: 01/12/19 21:31 Dose: Not Given Documented by: Sodium Chloride (Saline Flush) 10 ml IV Q8 [facility] Last Admin: 01/13/19 05:04 Dose: 10 ml Documented by: Timolol Maleate (Timoptic 0.5% Ophth Drops) 1 gtt OU DAILY [facility] Last Admin: 01/13/19 08:04 Dose: 1 drop Documented by: Vancomycin HCl (Vancomycin Per Pharmacy) 1 order IV UD [facility]; Protocol - ABG Interpretation ABG results: 01/10/19 03:45 ABG Methemoglobin 0.3 L VBG pH 7.39 VBG pCO2 35.1 L VBG pO2 79 H VBG HCO3 21.0 L VBG Total CO2 22.0 L VBG O2 Saturation 92.4 H VBG Base Excess -3.4 L Medical - PN: A/P - Time Spent With Patient Total time spent is greater than 50% in coordination of care (as documented) at patient's floor/unit and/or counseling patient: - Narrative A/P Narrative: A/P Septic Shock -resolved -s/p pressors Emphysematous pyelonephritis/ obstructive urophathy -s/p stent -infection responded well to treatment. -outpatient follow up with Dr Moya -urine culture has been negative Hematuria -due to above Acute kidney injury -stable creat Gram postive bactermia -coag neg, source? microccous? -ID consult, added vancomycin, HTN -bp stable Vertigo, BPPV -PT to evaluate to see if manuvers help DVT prophylaxis hep Full code Medical - PN: Qual - VTE Deep Vein Thrombosis/Pulmonary Embolism Present on Admission: No
--- NOTE | 2019-01-13 13:10 | Infectious Disease Consult ---
History of Present Illness Patient information: Note initiated : 01/13/19 at 1:06 pm Service Date, if different from initiated Date: [] Patient: Aby Yeung 78 y/o F admitted on 01/07/19 for Urogenital Female. Chief Complaint: [] Consult date: 01/13/19 Requesting Physician: Aaron Clarke Reason for Consult: GPC bacteremia Chief complaint: my back was hurting History of present illness: 78 year old lady with PMHx of: - chronic low back pain and multiple back surgeries (dating back to [id number]) - Left knee replacement Pt is a physically active and avid walker. She was admitted on 01/07 after presenting with about 4-day hx of progressive lower back/right flank pain along with worsening weakness. She waited for 4 days as she thought that it was part of her chronic back pain getting worse. On the morning of presentation she had high fever, with chills, burning while urination and nausea. She also endorsed whole body aches, and confusion. In the ED, she was febrile at 100.4F, HR 107, BP 97/57, satting 97% on RA. WBC was 5.7, Venous lactate 2.2, Cr 1. Per admitting physician note, CT scan revealed bilateral hydronephrosis, ureteral stones, along with air in urinary system. Pt was started on IV fluids, IV Zosyn and Urology was emergently consulted for decompression, taken to the OR for stent placement. Per operative note, pt underwent "Bilateral stent placement, left ureteroscopy". There were also concerns for perforation in ureter. Blood and urine Cx were also sent. IV Vanc was added to the Zosyn. Pt's WBC uptrended to 29.4 next day. Pt gradually improved with decline in vasopressor req, improvement in mental status, drop in WBCs. A Cdiff stool sample was tested for diarrhea but was negative. IV Vanc was d/sole on 01/10/19. Blood Cx came back positive as follows: - 01/07: 1 bottle of 1/2 sets [Micrococcus spp] - 01/09: 2/2 sets +ve for Staph lugdunensis (sensi pending) IV Vanc was resumed again this am. At time of visit, pt was doing fine. Reports that she is much better than before. Denied any fever, chills, n/v. Endorses diarrhea few times a day, better with Immodium she is taking. In addition, she endorses some dizziness and spinning sensation. She endorses low back pain. She had a TTE done earlier today. She denied any burning while urination, other urinary symptoms. Review of Systems All systems PM: reviewed and no additional remarkable complaints except as stated Past History Past family history: not pertinent to current presentation no sick contacts pt has cats Past social history: doesnot smoke, use alcohol Medications and Allergies Home Medications Medication Instructions Recorded Confirmed Type Ciprofloxacin [Cipro] 500 mg PO BID #14 tab 01/07/19 Rx Latanoprost/Pf [Latanoprost 0.005% 1 drp OU HS 01/07/19 01/07/19 History Eye Drop] Metoprolol Succinate [Toprol Xl] 25 mg PO BID 01/07/19 01/07/19 History Ondansetron [Zofran ODT] 1 - 2 tab SL Q6 PRN 01/07/19 01/07/19 History Timolol 0.5% Ophth Drops [Timoptic 1 gtt OU DAILY 01/07/19 01/07/19 History 0.5% Ophth Drops] amLODIPine BESYLATE [Amlodipine 5 mg PO DAILY 01/07/19 01/07/19 History Besylate] Allergies Allergy/AdvReac Type Severity Reaction Status Date / Time Opioids - Morphine Analogues AdvReac Mild Vomiting Verified 01/09/19 07:08 tramadol AdvReac Mild Vomiting Verified 01/09/19 07:08 Physical Examination Vital signs: Temp Pulse Resp BP Pulse Ox 36.5 C 66 14 149/63 93 01/13/19 11:06 01/13/19 11:06 01/13/19 11:06 01/13/19 11:06 01/13/19 08:00 General appearance: no acute distress Eyes pulmonary: nonicteric Auscultation: bilateral: clear (occasional crackles at bases) Cardiovascular: other (s1 s2 normal, no m/r/g) Gastrointestinal: normoactive bowel sounds, soft, non-tender Integumentary: normal Musculoskeletal: other (no tenderness or redness inv knee joints) no cva tenderness b/l no spine tip tenderness Results - Laboratory Findings CBC and BMP: 01/13/19 07:47 01/13/19 07:47 Abnormal lab findings: Abnormal Labs 01/07/19 01/07/19 01/07/19 05:35 05:35 05:35 WBC RBC Hgb Hct Plt Count 119 L MPV 6.8 L Gran % 93.3 H Lymph % (Auto) 6.1 L [place] % (Auto) 0.3 L Lymph # (Auto) 0.3 L [place] # (Auto) 0 L Seg Neutrophils % Band Neutrophils % Lymphocytes % Metamyelocytes % Myelocytes % WBC Morphology Hypersegmented Polys Vacuolated Neuts Reactive Lymphocytes RBC Morphology Hypochromasia ABG Methemoglobin VBG pCO2 VBG pO2 VBG HCO3 VBG Total CO2 VBG O2 Saturation VBG Base Excess VBG Lactic Acid 2.2 H Carboxyhemoglobin Total Hemoglobin Potassium Chloride Carbon Dioxide 21 L BUN Creatinine Calcium Phosphorus Magnesium Direct Bilirubin GGT Alkaline Phosphatase Lactate Dehydrogenase Total Protein Albumin Albumin/Globulin Ratio Triglycerides Urine Protein Urine Occult Blood Ur Leukocyte Esterase Urine RBC Urine WBC Urine Bacteria 01/07/19 01/08/19 01/08/19 08:00 03:55 03:55 WBC 29.4 H RBC 3.43 L Hgb 10.9 L Hct 32.4 L Plt Count 106 L MPV Gran % Lymph % (Auto) [place] % (Auto) Lymph # (Auto) [place] # (Auto) Seg Neutrophils % 22 L Band Neutrophils % 61 H Lymphocytes % 9 L Metamyelocytes % 5 H Myelocytes % WBC Morphology Abnorm A Hypersegmented Polys Rare A Vacuolated Neuts Reactive Lymphocytes RBC Morphology Hypochromasia ABG Methemoglobin VBG pCO2 VBG pO2 VBG HCO3 VBG Total CO2 VBG O2 Saturation VBG Base Excess VBG Lactic Acid Carboxyhemoglobin Total Hemoglobin Potassium Chloride 109 H Carbon Dioxide 20 L BUN Creatinine 1.3 H Calcium 7.6 L Phosphorus Magnesium 1.5 L Direct Bilirubin GGT Alkaline Phosphatase Lactate Dehydrogenase 262 H Total Protein 5.4 L Albumin 2.9 L Albumin/Globulin Ratio Triglycerides Urine Protein 100 A Urine Occult Blood >=1.0 A Ur Leukocyte Esterase 500 A Urine RBC > 182 H Urine WBC 160 H Urine Bacteria Many A 01/09/19 01/09/19 01/10/19 03:45 03:45 03:45 WBC 3.1 L 20.6 H RBC 3.58 L 3.15 L Hgb 11.1 L 9.8 L Hct 33.7 L 29.7 L Plt Count 65 L 67 L MPV Gran % Lymph % (Auto) [place] % (Auto) Lymph # (Auto) [place] # (Auto) Seg Neutrophils % Band Neutrophils % 11 H Lymphocytes % 7 L Metamyelocytes % Myelocytes % WBC Morphology Abnorm A Hypersegmented Polys Vacuolated Neuts Occ A Reactive Lymphocytes RBC Morphology Hypochromasia ABG Methemoglobin VBG pCO2 VBG pO2 VBG HCO3 VBG Total CO2 VBG O2 Saturation VBG Base Excess VBG Lactic Acid Carboxyhemoglobin Total Hemoglobin Potassium 3.2 L Chloride 109 H Carbon Dioxide 19 L BUN Creatinine 1.6 H Calcium 7.9 L Phosphorus 2.1 L Magnesium 1.5 L Direct Bilirubin 0.4 H GGT Alkaline Phosphatase 341 H Lactate Dehydrogenase Total Protein 5.3 L Albumin 2.6 L Albumin/Globulin Ratio Triglycerides Urine Protein Urine Occult Blood Ur Leukocyte Esterase Urine RBC Urine WBC Urine Bacteria 01/10/19 01/10/19 01/10/19 03:45 03:45 09:20 WBC RBC Hgb Hct Plt Count MPV Gran % Lymph % (Auto) [place] % (Auto) Lymph # (Auto) [place] # (Auto) Seg Neutrophils % Band Neutrophils % Lymphocytes % Metamyelocytes % Myelocytes % WBC Morphology Hypersegmented Polys Vacuolated Neuts Reactive Lymphocytes RBC Morphology Hypochromasia ABG Methemoglobin 0.3 L VBG pCO2 35.1 L VBG pO2 79 H VBG HCO3 21.0 L VBG Total CO2 22.0 L VBG O2 Saturation 92.4 H VBG Base Excess -3.4 L VBG Lactic Acid Carboxyhemoglobin 3.0 H Total Hemoglobin 9.8 L Potassium Chloride 109 H Carbon Dioxide 20 L BUN 26 H Creatinine 1.7 H Calcium 7.4 L Phosphorus 2.1 L Magnesium Direct Bilirubin GGT Alkaline Phosphatase Lactate Dehydrogenase Total Protein 5.0 L Albumin 2.5 L Albumin/Globulin Ratio Triglycerides Urine Protein 100 A Urine Occult Blood >=1.0 A Ur Leukocyte Esterase 500 A Urine RBC > 182 H Urine WBC > 182 H Urine Bacteria 01/11/19 01/11/19 01/12/19 04:05 04:05 04:00 WBC 13.7 H RBC 3.30 L 3.33 L Hgb 10.3 L 10.4 L Hct 31.0 L 31.1 L Plt Count 79 L 93 L MPV Gran % Lymph % (Auto) [place] % (Auto) Lymph # (Auto) [place] # (Auto) Seg Neutrophils % Band Neutrophils % Lymphocytes % Metamyelocytes % 1 H 2 H Myelocytes % 2 H WBC Morphology Hypersegmented Polys Vacuolated Neuts Reactive Lymphocytes 3 H RBC Morphology Abnorm A Hypochromasia Few A ABG Methemoglobin VBG pCO2 VBG pO2 VBG HCO3 VBG Total CO2 VBG O2 Saturation VBG Base Excess VBG Lactic Acid Carboxyhemoglobin Total Hemoglobin Potassium Chloride 109 H Carbon Dioxide 21 L BUN Creatinine Calcium 7.9 L Phosphorus 2.1 L Magnesium Direct Bilirubin GGT Alkaline Phosphatase Lactate Dehydrogenase Total Protein 4.9 L Albumin 2.2 L Albumin/Globulin Ratio 0.8 L Triglycerides 210 H Urine Protein Urine Occult Blood Ur Leukocyte Esterase Urine RBC Urine WBC Urine Bacteria 01/12/19 01/13/19 01/13/19 04:00 07:47 07:47 WBC 11.4 H RBC 3.78 L Hgb 11.9 L Hct 35.0 L Plt Count MPV Gran % Lymph % (Auto) [place] % (Auto) Lymph # (Auto) [place] # (Auto) 1.1 H Seg Neutrophils % Band Neutrophils % Lymphocytes % Metamyelocytes % Myelocytes % WBC Morphology Hypersegmented Polys Vacuolated Neuts Reactive Lymphocytes RBC Morphology Hypochromasia ABG Methemoglobin VBG pCO2 VBG pO2 VBG HCO3 VBG Total CO2 VBG O2 Saturation VBG Base Excess VBG Lactic Acid Carboxyhemoglobin Total Hemoglobin Potassium 3.2 L Chloride Carbon Dioxide BUN Creatinine Calcium 8.2 L Phosphorus Magnesium Direct Bilirubin GGT 38 H Alkaline Phosphatase Lactate Dehydrogenase 253 H Total Protein 5.2 L Albumin 2.6 L Albumin/Globulin Ratio Triglycerides 229 H 288 H Urine Protein Urine Occult Blood Ur Leukocyte Esterase Urine RBC Urine WBC Urine Bacteria Microbiology: Microbiology 01/09/19 03:50 Blood Blood Culture - Preliminary Gram positive cocci 01/07/19 05:45 Blood Blood Culture - Final 01/10/19 07:00 Urine - Clean Void Mid-Stream Urine Culture - Final 01/09/19 03:45 Blood Blood Culture - Preliminary Gram positive cocci 01/07/19 04:20 Urine - Catheterized Urine Culture - Final 01/07/19 09:48 Blood Blood Culture - Preliminary Gram positive cocci 01/08/19 08:46 Stool C. difficile GDH Antigen & Toxins - Final 01/07/19 23:40 Nose - Both Right and Left MRSA (PCR) - Final Assessment and Plan - Narrative A/P Narrative: A: 1. Staphylococcus lugdunensis bacteremia: - 1/2 bottles from 01/09 per Verig[facility] PCR, mecA gene neg. The other set from same date growing CONS pending speciation - Isolation of Micrococcus sp on 01/07 suggests contamination 2. B/l ureteral obstruction with mod hydronephrosis: s/p b/l ureteral stenting with partial resolution of hydronephrosis - Repeat CT with contrast 01/13 suggest functionality and correct placement - Cr near baseline 3. Septic shock: resolved - Around admission based on SOFA score >2, pt requiring vasopressors despite IV fluids resuscitation, lactic acid >2 4. Pyelonephritis with presence of air in urinary tract (at level of kidneys, bladder) - urine culture neg, but clinical symptoms and signs at admission suggestive - currently with significant improvement in symptoms Recommendations: - Continue IV Vanc per pharmacy assisted dosing. Target trough (10-20) - Continue IV Zosyn 3.375 gm q6 hrs for broader coverage against gram negative and anerobic organisms, day 6. will stop tomorrow evening as pt would have fini shed a 7 day course for pyelonepheritis - await final TTE report - await final ID and sensi on CONS from 1/2 sets from 01/09. - Await sensi on Staph lugdunesis. Based on sensi, will decide choice of home going antibiotic therapy. will follow Dario Nowak MD Infectious diseases
[2019-01-13] MEDS ORDERED: IOPAMIDOL 100 ML BOTTLE IV ONE (13:42)
--- NOTE | 2019-01-13 15:55 | Cat Scan Report ---
CLINICAL INFORMATION: Pyelonephritis COMPARISON: CT urogram less than one week prior: 01/07/2019 TECHNIQUE: Following enteric contrast, 80 cc of Isovue-300 were injected intravenously, and 60 seconds later, 0.625 mm helical slices were obtained from the mid heart through the subtrochanteric regions. Following reconstruction, 2.5 mm sagittal, coronal and axial reformatted images were processed and reviewed at bone, lung and soft tissue windows. Five minutes later, 0.625 mm helical slices were obtained from the mid heart through the kidneys and viewed at soft tissue windows.The exam was performed using radiation dose optimization techniques including, but not limited to, automated exposure control, adjustment of the mA and/or kV according to patient size and use of iterative reconstruction technique. FINDINGS: Small bilateral pleural effusions show slight worsening. There is scattered atelectasis and/or scarring in both lower lobes with subsegmental tubular bronchiectasis in the medial basal segment right lower lobe. The visualized heart is mildly enlarged. Images through the abdomen show a 3 cm simple cyst in the superior caudate lobe of the liver. No significant abnormalities. The gallbladder and bile ducts are normal: CBD is 5 mm. The spleen is normal in size and configuration. 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 Both adrenal glands, pancreas and aorta, including aortic branches, are normal in size, configuration and attenuation without focal lesion. Since prior study, bilateral double-pigtail ureteral stents have been properly placed within both upper collecting systems, ureter and urinary bladder. There is persistent mild/moderate bilateral hydronephrosis, however the dilatation has improved. 14 mm nonobstructing stone inferior calyx of the right kidney and a 8 mm nonobstructing stone inferior calyx left kidney are again seen. A 3 mm calcification adjacent to the right ureter approximately 5 cm above the UVJ likely represents one of the smaller distal ureteral stone described on previous exam. Most of the smaller stones and removed however. There is no evidence of extravasation of the upper collecting system or ureters. A small amount of free fluid in the rectovesical region may represent stigmata from prior perforation Urinary bladder is unremarkable. Hysterectomy / oophorectomy changes noted. The stomach, small and large bowel show mild ileus pattern. The appendix is normal. No free air, free fluid or adenopathy. Small left inguinal hernia containing only mesenteric fat appreciated. Bone windows show L4-5 and L5-S1 posterior fusion. IMPRESSION: Bilateral ureteral stents in satisfactory position. Mild/moderate bilateral hydronephrosis persists although there has been improvement from the preprocedure CT over one week prior. There is no evidence of active extravasation from the upper collecting, ureters or urinary bladder on today's exam. A small amount of unopacified free fluid in retrovesical region is likely residua from prior perforation. Nonobstructing stones remaining within the inferior calyces of both upper collecting systems. A 3 mm calcification, adjacent to the distal right ureteral stent, is either either calcification within the wall or a small stone in the ureter adjacent to the stent. Small bilateral pleural effusions - slight increase 1 cm thrombosed saccular aneurysm - distal splenic artery Interpreted and Authenticated by: Tino Pulido 01/13/19
--- NOTE | 2019-01-13 15:57 | XRay Report ---
CLINICAL INFORMATION: pyelonephritis COMPARISON: None. FINDINGS: Films taken approximately two hours following contrast enhanced abdomen CT shows no residual contrast in the upper collecting system or ureters. Calcifications, representing nonobstructing stones in the calyces, are only vaguely seen. Bilateral ureteral stents in stable satisfactory position. The stool gas pattern is normal. No free air or soft tissue mass. IMPRESSION: Interval clearance of IV contrast since the CT two hours prior suggest that both ureteral stents are functional conduits. Interpreted and Authenticated by: Tino Pulido 01/13/19
[2019-01-13] MEDS: PIPERACILLIN SODIUM/TAZOBACTAM 3.375 GM in DEXTROSE 5% IN WATER 50 ML IV SCH ×2 (17:33→23:08)
[2019-01-13] MEDS: SENNOSIDES/DOCUSATE SODIUM 1 TAB TABLET PO SCH (20:28)
[2019-01-13] MEDS: LATANOPROST OPHTH DROPS 2.5ML BOTTLE OU SCH (20:29)
[2019-01-14 05:19] LABS: Basophils # (Auto) 0 K/mcL (0.0-0.3); Basophils % (Auto) 0.2 % (0.0-2.0); Eosinophils # (Auto) 0.6 K/mcL (0.0-0.7); Eosinophils % (Auto) 4.7 % (0.0-7.0); Granulocytes % (Auto) 56.7 % (38.0-78.0); Hematocrit 31.2 % (36.0-48.0); Hemoglobin 10.5 g/dL (12.0-15.0); Lymphocytes % (Auto) 25.4 % (15.5-49.0); Mean Cell Volume 93.1 fL (80.0-100.0); Mean Corpuscular HGB Conc 33.7 g/dL (31.0-36.0); Mean Platelet Volume 7.6 fL (7.4-10.4); Monocytes # (Auto) 1.5 K/mcL (0.1-0.9); Platelet Count 188 K/mcL (140-440); RBC 3.36 M/mcL (4.00-5.20); Red Cell Distribution Width 14.2 % (11.5-14.5); WBC 11.8 K/mcL (4.5-11.0)
[2019-01-14 05:43] LABS: ALT/SGPT 13 U/l (0-40); AST/SGOT 16 U/l (0-37); Albumin 2.8 gm/dL (3.2-5.2); Alkaline Phosphatase 80 U/L (39-117); Bilirubin,Direct < 0.2 mg/dL (0.0-0.3); Bilirubin,Total 0.4 mg/dL (0.0-1.0); Blood Urea Nitrogen 10 mg/dl (8-23); Calcium 8.3 mg/dl (8.6-10.4); Carbon Dioxide 24 mmol/L (22-30); Chloride 105 mmol/L (96-108); Globulin 2.9 gm/dL (2.2-3.7); Glomerular Filtration Rate 61; Glucose 95 mg/dL (70-105); Lactate Dehydrogenase 165 U/L (94-250); Magnesium 1.8 mg/dL (1.6-2.5); Phosphorous 3.1 mg/dL (2.7-4.5); Potassium 3.1 mmol/L (3.3-5.1); Sodium 141 mmol/L (133-145); Triglycerides 234 mg/dl (<150); Uric Acid 2.8 mg/dL (2.5-8.0)
[2019-01-14] MEDS: 0.9 % SODIUM CHLORIDE 10 ML SYRINGE IV SCH ×3 (06:00→21:08)
[2019-01-14] MEDS: PIPERACILLIN SODIUM/TAZOBACTAM 3.375 GM in DEXTROSE 5% IN WATER 50 ML IV SCH ×3 (06:00→17:32)
[2019-01-14] MEDS ORDERED: POTASSIUM CHLORIDE 20 MEQ PACKET PO ONE (06:57)
[2019-01-14] MEDS: BUTALB/ACETAMINOPHEN/CAFFEINE 1 TABLET PO PRN ×2 (07:53→19:15)
[2019-01-14] MEDS: DOCUSATE SODIUM 100 MG CAPSULE PO SCH ×2 (07:54→21:07)
[2019-01-14] MEDS: VANCOMYCIN 1,000 MG in 0.9 % SODIUM CHLORIDE 250 ML IV SCH ×2 (09:34→21:06)
[2019-01-14] MEDS: TIMOLOL 0.5% OPHTH DROPS BOTTLE 5ML OU SCH (09:34)
[2019-01-14] MEDS: METOPROLOL SUCCINATE 25 MG TAB.XL.24H PO SCH ×2 (09:34→21:06)
[2019-01-14] MEDS: HEPARIN 5,000 UNIT/ML VIAL SQ SCH ×2 (09:34→21:06)
--- NOTE | 2019-01-14 10:15 | Internal Med Progress Note ---
Medical - PN: Subj Patient information: Note initiated : 01/14/19 at 10:12 am Service Date, if different from initiated Date: [] Patient: Aby Yeung a 78 y/o F admitted on 01/07/19 for Urogenital Female. Chief Complaint: [] Interval history: Ms. Yeung is a 78 year old F who presents today with her Evans with approximately 1 week onset of progressive lower back/right flank pain along with worsening weakness. Symptoms symptoms were later followed with fevers, shaking chills, loss of appetite and nausea. Symptoms progressed to the point patient barely function and became very drowsy unable to think clearly. She was subsequently evaluated in the ER. Initial workup was consistent with septic shock with tachycardia 130s. CT scan revealed bilateral hydronephrosis along with air in urinary system. Urology was emergently consulted for decompression. Patient was started on broad antibiotic coverage/pressors and crystalloids. Patient was taken to the OR for stent placement. Hospitalist service was subsequently consulted for admission Patient was evaluated postprocedure following ureteral stent placement. He is currently on Levophed at 18 mics. She received 4 L of crystalloids. Started on vancomycin and Zosyn. Pancultures were ordered. Patient is drowsy but was able to answer simple questions. Denies chest pain, photophobia. Endorses to headache. Denies diarrhea, bloody urine. 01/08-patient overnight on pressors. Status post 5 L crystalloids and currently on maintenance. White count up from 5.7-29.4. However hemodynamics and urine output improving. Titrating vasopressors down to 3 mics Levophed. Patient more lucid and alert. Creatinine 30% rise since admission at 1.3. Patient remains critically ill but improved since admission. Status post bilateral ureteric st ent. Continue management per guidelines. 01/09 Aby had a rough night last night. Including increased back pain she had episode of nausea vomiting while up to the commode. She had some reported blood clots in [place] bag which improved. She had some what appeared to be bright red blood around her soft stool. Feeling a little better at this time. Blood pressure low earlier this morning improved currently. At home she takes a combination of aspirin and caffeine for headaches. She has chills. Vasopressors have been off since yesterday at noon. Urine output was been pretty good all day yesterday night but decreased this morning. Creatinine elevated. 6/2 Much better last night and feels much better this morning. Has a mild headache but much improved. Diarrhea, C. difficile negative, using Imodium T-max 100.7 yesterday 8:00pm. Widely fluctuating WBC, has not needed any vasopressors since stopping on the . Creatinine similar yesterday 01/11 Slept all right between nurse checks and the alarming IV pole. Has a little bit of a cough and some achiness but otherwise no complaints and feeling better. Bowel movements are thickening up. 01/12 Slept on and off. No overnight events. Still very weak but overall feeling better. 01/13 Patient seen examined, no acute issues, tolerating po diet well she did have some headache yesterday Blood cultures positive, initially thought to be a contaminant, will get ID opinion on further treatment plan Pt has vertigo/ unable to use meclizine due to glaucoma, will see if PT can evaluate for sharonda maneuver. 01/14 Patient seen and examined, no acute overnight issues patient holding p.o. diet well. Patient afebrile, had some mild headache otherwise no new complaints or concerns blood cultures are negative which was sent yesterday. Patient is on vancomycin and Zosyn Infectious disease is following appreciate their input Anticipate PICC line tomorrow if the patient's cultures remain negative Pertinent ROS: some headache, no dizziness reported today Denies chest pain, palpitations Denies cough or shortness of breath Denies abdominal pain, nausea or vomiting. - Constitutional Vitals: Vital Signs Temp Pulse Resp BP Pulse Ox 98.6 F 64 16 135/67 94 01/14/19 07:01 01/14/19 07:01 01/14/19 07:01 01/14/19 07:01 01/14/19 07:01 Period Temp Pulse Resp BP Sys/Chan Pulse Ox Last 24 Hr 97.7 F-98.7 F 62-81 14-16 135-152/63-86 92-96 Intake and Output 01/13/19 01/14/19 01/14/19 21:59 05:59 13:59 Intake Total 300 850 360 Output Total 6763 1557 750 Balance -1775 -225 -390 Weight 172 lb Intake & Output: Intake & Output 01/13/19 01/14/19 01/14/19 21:59 05:59 13:59 Intake Total 300 850 360 Output Total 2074 4203 401 Balance -1775 -225 -390 Weight 172 lb Intake: IV 300 50 Zosyn 3.375 gm In Dextrose 5% 50 50 in Water 50 ml @ 100 mls/hr IV Q6H [facility] Rx#:[id number] Vancomycin 1,000 mg In Sodium 250 Chloride 0.9% 250 ml @ 250 mls/ hr IV Q12H [facility] Rx#:[id number] Oral 800 360 Output: Void Amount 20741 585 Other: Meal Dinner Sherbert Breakfast Percent of Meal Consumed 100% 100% 100% Feeding Ability Independent Independent Independent Urine Appearance Clear Clear Clear Urine Color Bright Yellow Bright Yellow Dark Diana Urine Odor Normal Normal Strong # Voids 1 Exam: Constitutional; Afebrile, cooperative, alert, not in distress. Respiratory system: Air Entry equal on both sides, No crackles or wheezing, no rhonchi. CVS- Rate rhythm regular, S1,S2 heard, no gallop, no rub. Abdomen- Soft nontender abdomen, no organomegaly, no tenderness, no guarding or rigidity, [place]- AOOx3, moving all extremities, no gross focal deficit noted. Medical - PN: Obj Da - Labs CBC & Chem 7: 01/14/19 04:00 01/14/19 04:00 Labs: Abnormal Lab Results 01/14/19 01/14/19 01/13/19 04:00 04:00 07:47 WBC 11.8 H RBC 3.36 L Hgb 10.5 L Hct 31.2 L Plt Count [place] % (Auto) 13.0 H [place] # (Auto) 1.5 H Metamyelocytes % Reactive Lymphocytes Potassium 3.1 L Calcium 8.3 L GGT 38 H Lactate Dehydrogenase 253 H Total Protein 5.7 L Albumin 2.8 L Triglycerides 234 H 288 H 01/13/19 01/12/19 01/12/19 07:47 04:00 04:00 WBC 11.4 H RBC 3.78 L 3.33 L Hgb 11.9 L 10.4 L Hct 35.0 L 31.1 L Plt Count 93 L [place] % (Auto) [place] # (Auto) 1.1 H Metamyelocytes % 2 H Reactive Lymphocytes 3 H Potassium 3.2 L Calcium 8.2 L GGT Lactate Dehydrogenase Total Protein 5.2 L Albumin 2.6 L Triglycerides 229 H Meds: Medications Acetaminophen (Tylenol) 650 mg PO Q4-6HP PRN PRN Reason: PAIN/FEVER > 101 Last Admin: 01/13/19 00:10 Dose: 650 mg Documented by: Acetaminophen/Butalbital/Caffeine (Fioricet) 1 tab PO Q6HP PRN PRN Reason: Headache Last Admin: 01/14/19 07:53 Dose: 1 tab Documented by: Calcium Carbonate/Glycine (Tums) 500 mg CHEWED Q4HP PRN PRN Reason: Dyspepsia Last Admin: 01/10/19 21:27 Dose: 500 mg Documented by: Docusate Sodium (Colace) 100 mg PO BID [facility] Last Admin: 01/14/19 07:54 Dose: Not Given Documented by: Heparin Sodium (Porcine) (Heparin) 5,000 unit SQ Q12 [facility] Last Admin: 01/14/19 09:34 Dose: 5,000 unit Documented by: Magnesium Sulfate (Magnesium Sulfate) 2 gm in 50 mls @ 50 mls/hr IV UD PRN PRN Reason: MG = or < 1.7 Norepinephrine Bitartrate 16 (mg/ Sodium Chloride) 250 mls @ 9.38 mls/hr IV Q24HP PRN; Protocol PRN Reason: Hypotension Acetaminophen (Ofirmev) 1,000 mg in 100 mls @ 200 mls/hr IV Q6HP PRN PRN Reason: PAIN/FEVER > 101 Vancomycin HCl 1,000 mg/ (Sodium Chloride) 250 mls @ 250 mls/hr IV Q12H [facility] Last Admin: 01/14/19 09:34 Dose: 250 mls/hr Documented by: Piperacillin Sod/Tazobactam (Sod 3.375 gm/ Dextrose) 50 mls @ 100 mls/hr IV Q6H [facility] Last Admin: 01/14/19 06:00 Dose: 100 mls/hr Documented by: Latanoprost (Xalatan Ophth Drops) 1 gtt OU HS [facility] Last Admin: 01/13/19 20:29 Dose: 1 gtt Documented by: Loperamide HCl (Imodium) 2 mg PO PRN PRN PRN Reason: Diarrhea Last Admin: 01/12/19 09:48 Dose: 2 mg Documented by: Metoprolol Succinate (Toprol Xl) 25 mg PO BID [facility] Last Admin: 01/14/19 09:34 Dose: 25 mg Documented by: Ondansetron HCl (Zofran) 4 mg IV Q4-6HP PRN PRN Reason: Nausea And Vomiting Oxybutynin Chloride (Ditropan) 5 mg PO TIDP PRN PRN Reason: BLADDER SPASMS Potassium Chloride (Klor-Con) 40 meq PO DAILYP PRN PRN Reason: K+ < 3.5 Senna/Docusate Sodium (Senna Plus Tablet) 1 tab PO HS [facility] Last Admin: 01/13/19 20:28 Dose: Not Given Documented by: Sodium Chloride (Saline Flush) 10 ml IV Q8 [facility] Last Admin: 01/14/19 06:00 Dose: 10 ml Documented by: Timolol Maleate (Timoptic 0.5% Ophth Drops) 1 gtt OU DAILY [facility] Last Admin: 01/14/19 09:34 Dose: 1 drop Documented by: Vancomycin HCl (Vancomycin Per Pharmacy) 1 order IV UD [facility]; Protocol - ABG Interpretation ABG results: 01/10/19 03:45 ABG Methemoglobin 0.3 L VBG pH 7.39 VBG pCO2 35.1 L VBG pO2 79 H VBG HCO3 21.0 L VBG Total CO2 22.0 L VBG O2 Saturation 92.4 H VBG Base Excess -3.4 L Medical - PN: A/P - Time Spent With Patient Total time spent is greater than 50% in coordination of care (as documented) at patient's floor/unit and/or counseling patient: - Narrative A/P Narrative: A/P Septic Shock -resolved -s/p pressors Emphysematous pyelonephritis/ obstructive urophathy -s/p stent -infection responded well to treatment. -outpatient follow up with Dr Moya -urine culture has been negative -Repeat CT shows improving hydronephrosis and patent stent Hematuria -due to above Acute kidney injury -stable creat Gram postive bactermia -coag neg, source? microccous? -ID consult, added vancomycin, -if cultures remain neg tomorrow, will get PICC Placed - TTE is negative for any vegetations. HTN -bp stable Vertigo, BPPV -PT to evaluate to see if manuvers help -no complaints today DVT prophylaxis hep Full code Medical - PN: Qual - VTE Deep Vein Thrombosis/Pulmonary Embolism Present on Admission: No
[2019-01-14] MEDS: LOPERAMIDE 2 MG CAPSULE PO PRN (13:53)
--- NOTE | 2019-01-14 20:37 | Infectious Disease Prog Note ---
Subjective Patient information: Note initiated : 01/14/19 at 8:32 pm Service Date, if different from initiated Date: [] Patient: Aby Yeung 78 y/o F admitted on 01/07/19 for Urogenital Female. Chief Complaint: [] Interval history: Pt sitting in chair at time of visit. Denied any fever, chills, n/v. Diarrhea un anupama control with Immodium. Her vertigo is also better. Discussed blood Cx results and plan to do IV antibiotics through PICC line. Objective Objective Narrative: ao x 3, in nad no thrush chset cta s1 s2 normal, no m/r/g - Vital Signs Vital signs: Vital Signs Temp Pulse Resp BP BP Pulse Ox 01/14/19 15:31 36.6 C 16 137/72 94 01/14/19 11:19 37.0 C 64 16 133/78 98 01/14/19 07:01 37.0 C 64 16 135/67 94 01/14/19 03:40 36.8 C 62 16 137/74 93 01/13/19 22:39 37.1 C 64 16 149/79 92 Intake and Output 01/14/19 01/14/19 01/14/19 05:59 13:59 21:59 Intake Total 980 484 8392 Output Total 1075 925 200 Balance -225 -215 830 Intake: IV 50 350 50 Zosyn 3.375 gm In Dextrose 5% 50 100 50 in Water 50 ml @ 100 mls/hr IV Q6H [facility] Rx#:[id number] Vancomycin 1,000 mg In Sodium 250 Chloride 0.9% 250 ml @ 250 mls/ hr IV Q12H [facility] Rx#:[id number] Oral 800 360 980 Output: Void Amount 1075 925 200 Other: Meal Sherbert Breakfast Dinner Percent of Meal Consumed 100% 100% 100% Feeding Ability Independent Independent Urine Appearance Clear Clear Urine Color Bright Yellow Dark Diana Urine Odor Normal Strong Stool Size Small Small Stool Color Brown Brown Stool Consistency Soft Soft # Voids 1 # Bowel Movements 3 2 Intake & Output: Intake & Output 01/14/19 01/14/19 01/14/19 05:59 13:59 21:59 Intake Total 709 513 1151 Output Total 1075 925 200 Balance -225 -215 830 Intake: IV 50 350 50 Zosyn 3.375 gm In Dextrose 5% 50 100 50 in Water 50 ml @ 100 mls/hr IV Q6H [facility] Rx#:[id number] Vancomycin 1,000 mg In Sodium 250 Chloride 0.9% 250 ml @ 250 mls/ hr IV Q12H [facility] Rx#:[id number] Oral 800 360 980 Output: Void Amount 1075 925 200 Other: Meal Sherbert Breakfast Dinner Percent of Meal Consumed 100% 100% 100% Feeding Ability Independent Independent Urine Appearance Clear Clear Urine Color Bright Yellow Dark Diana Urine Odor Normal Strong Stool Size Small Small Stool Color Brown Brown Stool Consistency Soft Soft # Voids 1 # Bowel Movements 3 2 - Lab 01/14/19 04:00 01/14/19 04:00 Most recent lab results Calcium 8.3 mg/dl (8.6-10.4) L 01/14/19 04:00 Phosphorus 3.1 mg/dL (2.7-4.5) 01/14/19 04:00 Magnesium 1.8 mg/dL (1.6-2.5) 01/14/19 04:00 Microbiology 01/07/19 09:48 Blood Blood Culture - Final Micrococcus species 01/13/19 05:05 Blood Blood Culture - Preliminary 01/13/19 05:10 Blood Blood Culture - Preliminary 01/09/19 03:50 Blood Blood Culture - Preliminary Gram positive cocci 01/07/19 05:45 Blood Blood Culture - Final 01/10/19 07:00 Urine - Clean Void Mid-Stream Urine Culture - Final 01/09/19 03:45 Blood Blood Culture - Preliminary Gram positive cocci 01/07/19 04:20 Urine - Catheterized Urine Culture - Final 01/08/19 08:46 Stool C. difficile GDH Antigen & Toxins - Final 01/07/19 23:40 Nose - Both Right and Left MRSA (PCR) - Final Medications Active Medications: Acetaminophen (Tylenol) 650 mg PO Q4-6HP PRN PRN Reason: PAIN/FEVER > 101 Last Admin: 01/13/19 00:10 Dose: 650 mg Documented by: Admin: 01/12/19 18:10 Dose: 650 mg Documented by: Admin: 01/12/19 09:34 Dose: 650 mg Documented by: Admin: 01/11/19 22:05 Dose: 650 mg Documented by: Admin: 01/11/19 08:16 Dose: 650 mg Documented by: [email or web address] Acetaminophen/Butalbital/Caffeine (Fioricet) 1 tab PO Q6HP PRN PRN Reason: Headache Last Admin: 01/14/19 19:15 Dose: 1 tab Documented by: Admin: 01/14/19 07:53 Dose: 1 tab Documented by: [email or web address] Admin: 01/13/19 20:29 Dose: 1 tab Documented by: Admin: 01/13/19 05:03 Dose: 1 tab Documented by: GRACIA Calcium Carbonate/Glycine (Tums) 500 mg CHEWED Q4HP PRN PRN Reason: Dyspepsia Last Admin: 01/10/19 21:27 Dose: 500 mg Documented by: Admin: 01/10/19 11:04 Dose: 500 mg Documented by: [email or web address] Docusate Sodium (Colace) 100 mg PO BID [facility] Last Admin: 01/14/19 07:54 Dose: Not Given Documented by: [email or web address] Non-Admin Reason: Patient Refused Admin: 01/13/19 20:28 Dose: Not Given Documented by: ANALIA Non-Admin Reason: Patient Request Admin: 01/13/19 08:02 Dose: Not Given Documented by: [email or web address] Non-Admin Reason: Loose Stool Admin: 01/12/19 21:31 Dose: Not Given Documented by: GRACIA Non-Admin Reason: Loose Stool Admin: 01/12/19 09:45 Dose: Not Given Documented by: [email or web address] Non-Admin Reason: Loose Stool Admin: 01/11/19 20:57 Dose: Not Given Documented by: CARMEN Non-Admin Reason: Loose Stool Admin: 01/11/19 08:02 Dose: Not Given Documented by: [email or web address] Non-Admin Reason: Loose Stool Admin: 01/10/19 21:27 Dose: Not Given Documented by: ANALIA Non-Admin Reason: Loose Stool Heparin Sodium (Porcine) (Heparin) 5,000 unit SQ Q12 [facility] Last Admin: 01/14/19 09:34 Dose: 5,000 unit Documented by: [email or web address] Admin: 01/13/19 20:28 Dose: 5,000 unit Documented by: Admin: 01/13/19 08:03 Dose: 5,000 unit Documented by: [email or web address] Admin: 01/12/19 21:31 Dose: 5,000 unit Documented by: Admin: 01/12/19 09:45 Dose: 5,000 unit Documented by: [email or web address] Admin: 01/11/19 22:04 Dose: Not Given Documented by: GRACIA Non-Admin Reason: Labs Outside of Range Admin: 01/11/19 08:17 Dose: 5,000 unit Documented by: [email or web address] Admin: 01/10/19 21:28 Dose: 5,000 unit Documented by: ANALIA Magnesium Sulfate (Magnesium Sulfate) 2 gm in 50 mls @ 50 mls/hr IV UD PRN PRN Reason: MG = or < 1.7 Norepinephrine Bitartrate 16 (mg/ Sodium Chloride) 250 mls @ 9.38 mls/hr IV Q24HP PRN; Protocol PRN Reason: Hypotension Acetaminophen (Ofirmev) 1,000 mg in 100 mls @ 200 mls/hr IV Q6HP PRN PRN Reason: PAIN/FEVER > 101 Vancomycin HCl 1,000 mg/ (Sodium Chloride) 250 mls @ 250 mls/hr IV Q12H [facility] Last Infusion: 01/14/19 11:04 Dose: 0 mls/hr Documented by: [email or web address] Admin: 01/14/19 09:34 Dose: 250 mls/hr Documented by: [email or web address] Infusion: 01/13/19 21:27 Dose: 250 mls/hr Documented by: [email or web address] Admin: 01/13/19 20:27 Dose: 250 mls/hr Documented by: Infusion: 01/13/19 10:30 Dose: 0 mls/hr Documented by: [email or web address] Admin: 01/13/19 09:11 Dose: 250 mls/hr Documented by: [email or web address] Piperacillin Sod/Tazobactam (Sod 3.375 gm/ Dextrose) 50 mls @ 100 mls/hr IV Q6H [facility] Last Infusion: 01/14/19 18:28 Dose: 0 mls/hr Documented by: [email or web address] Admin: 01/14/19 17:32 Dose: 100 mls/hr Documented by: [email or web address] Infusion: 01/14/19 13:19 Dose: 0 mls/hr Documented by: [email or web address] Admin: 01/14/19 12:39 Dose: 100 mls/hr Documented by: [email or web address] Infusion: 01/14/19 06:35 Dose: 0 mls/hr Documented by: [email or web address] Admin: 01/14/19 06:00 Dose: 100 mls/hr Documented by: Infusion: 01/13/19 23:38 Dose: 100 mls/hr Documented by: Admin: 01/13/19 23:08 Dose: 100 mls/hr Documented by: Infusion: 01/13/19 18:03 Dose: 100 mls/hr Documented by: Admin: 01/13/19 17:33 Dose: 100 mls/hr Documented by: [email or web address] Latanoprost (Xalatan Ophth Drops) 1 gtt OU HS [facility] Last Admin: 01/13/19 20:29 Dose: 1 gtt Documented by: Admin: 01/12/19 21:32 Dose: 1 gtt Documented by: Admin: 01/11/19 22:12 Dose: 1 gtt Documented by: Admin: 01/10/19 21:36 Dose: 1 gtt Documented by: ANALIA Loperamide HCl (Imodium) 2 mg PO PRN PRN PRN Reason: Diarrhea Last Admin: 01/14/19 13:53 Dose: 2 mg Documented by: [email or web address] Admin: 01/12/19 09:48 Dose: 2 mg Documented by: [email or web address] Admin: 01/11/19 08:01 Dose: 2 mg Documented by: [email or web address] Metoprolol Succinate (Toprol Xl) 25 mg PO BID [facility] Last Admin: 01/14/19 09:34 Dose: 25 mg Documented by: [email or web address] Admin: 01/13/19 20:28 Dose: 25 mg Documented by: Admin: 01/13/19 08:10 Dose: 25 mg Documented by: [email or web address] Admin: 01/12/19 21:32 Dose: 25 mg Documented by: Admin: 01/12/19 09:34 Dose: 25 mg Documented by: [email or web address] Ondansetron HCl (Zofran) 4 mg IV Q4-6HP PRN PRN Reason: Nausea And Vomiting Oxybutynin Chloride (Ditropan) 5 mg PO TIDP PRN PRN Reason: BLADDER SPASMS Potassium Chloride (Klor-Con) 40 meq PO DAILYP PRN PRN Reason: K+ < 3.5 Senna/Docusate Sodium (Senna Plus Tablet) 1 tab PO HS [facility] Last Admin: 01/13/19 20:28 Dose: Not Given Documented by: ANALIA Non-Admin Reason: Patient Refused Admin: 01/12/19 21:31 Dose: Not Given Documented by: GRACIA Non-Admin Reason: Loose Stool Admin: 01/11/19 20:57 Dose: Not Given Documented by: CARMEN Non-Admin Reason: Loose Stool Admin: 01/10/19 21:28 Dose: Not Given Documented by: ANALIA Non-Admin Reason: Loose Stool Sodium Chloride (Saline Flush) 10 ml IV Q8 [facility] Last Admin: 01/14/19 13:19 Dose: 10 ml Documented by: [email or web address] Admin: 01/14/19 06:00 Dose: 10 ml Documented by: Admin: 01/13/19 20:28 Dose: 10 ml Documented by: Admin: 01/13/19 17:34 Dose: 10 ml Documented by: [email or web address] Admin: 01/13/19 11:19 Dose: 10 ml Documented by: [email or web address] Admin: 01/13/19 05:04 Dose: 10 ml Documented by: Admin: 01/12/19 21:33 Dose: 10 ml Documented by: Admin: 01/12/19 18:10 Dose: 10 ml Documented by: [email or web address] Admin: 01/12/19 09:34 Dose: 10 ml Documented by: [email or web address] Admin: 01/11/19 20:58 Dose: Not Given Documented by: CARMEN Non-Admin Reason: see other charing Admin: 01/11/19 18:45 Dose: 10 ml Documented by: Admin: 01/11/19 18:05 Dose: 10 ml Documented by: [email or web address] Admin: 01/11/19 05:23 Dose: 10 ml Documented by: Admin: 01/10/19 23:40 Dose: 10 ml Documented by: Admin: 01/10/19 15:42 Dose: Not Given Documented by: [email or web address] Non-Admin Reason: Continuous IV Timolol Maleate (Timoptic 0.5% Ophth Drops) 1 gtt OU DAILY [facility] Last Admin: 01/14/19 09:34 Dose: 1 drop Documented by: [email or web address] Admin: 01/13/19 08:04 Dose: 1 drop Documented by: [email or web address] Admin: 01/12/19 09:44 Dose: 1 drop Documented by: [email or web address] Admin: 01/11/19 09:54 Dose: 1 drop Documented by: [email or web address] Vancomycin HCl (Vancomycin Per Pharmacy) 1 order IV UD [facility]; Protocol Assessment and Plan - Narrative A/P Narrative: A: 1. Staphylococcus lugdunensis bacteremia: - 1/2 bottles from 01/09 per Verigene PCR, mecA gene neg. The other set from same date growing CONS pending speciation and sensi - Isolation of Micrococcus sp on 01/07 suggests contamination - repeat blood Cx from 01/13 neg so far 2. B/l ureteral obstruction with mod hydronephrosis: s/p b/l ureteral stenting with partial resolution of hydronephrosis - Repeat CT with contrast 01/13 suggest functionality and correct placement - Cr near baseline 3. Septic shock: resolved - Around admission based on SOFA score >2, pt requiring vasopressors despite IV fluids resuscitation, lactic acid >2 4. Pyelonephritis with presence of air in urinary tract (at level of kidneys, bladder) - urine culture neg, but clinical symptoms and signs at admission suggestive - resolved - s/p 7 days of IV Zosyn Recommendations: - Continue IV Vanc per pharmacy assisted dosing. Target trough (10-20) - will stop IV Zosyn today evening as pt would have finished a 7 day course for pyelonepheritis - await final ID and sensi on CONS from 1/2 sets from 01/09. - Await sensi on Staph lugdunesis. Based on sensi, will decide choice of home going antibiotic therapy. will follow Dario Nowak MD Infectious diseases
[2019-01-14] MEDS: LATANOPROST OPHTH DROPS 2.5ML BOTTLE OU SCH (21:07)
[2019-01-14] MEDS: SENNOSIDES/DOCUSATE SODIUM 1 TAB TABLET PO SCH (21:08)
[2019-01-14] MEDS: ACETAMINOPHEN 325 MG TABLET PO PRN (21:12)
[2019-01-15] MEDS: BUTALB/ACETAMINOPHEN/CAFFEINE 1 TABLET PO PRN ×2 (02:34→08:43)
[2019-01-15 05:43] LABS: Basophils # (Auto) 0 K/mcL (0.0-0.3); Basophils % (Auto) 0.4 % (0.0-2.0); Eosinophils # (Auto) 0.6 K/mcL (0.0-0.7); Eosinophils % (Auto) 5.2 % (0.0-7.0); Hematocrit 30.1 % (36.0-48.0); Hemoglobin 9.9 g/dL (12.0-15.0); Lymphocytes # (Auto) 2.9 K/mcL (1.5-4.8); Lymphocytes % (Auto) 27.9 % (15.5-49.0); Mean Cell Volume 93.5 fL (80.0-100.0); Mean Corpuscular HGB Conc 32.8 g/dL (31.0-36.0); Mean Platelet Volume 7.7 fL (7.4-10.4); Monocytes # (Auto) 1.2 K/mcL (0.1-0.9); Monocytes % (Auto) 11.5 % (1.0-12.0); Platelet Count 233 K/mcL (140-440); RBC 3.22 M/mcL (4.00-5.20); Red Cell Distribution Width 14.1 % (11.5-14.5); WBC 10.5 K/mcL (4.5-11.0)
[2019-01-15 05:59] LABS: ALT/SGPT 13 U/l (0-40); AST/SGOT 14 U/l (0-37); Albumin 2.9 gm/dL (3.2-5.2); Albumin/Globulin Ratio 1.1 (1.0-2.3); Alkaline Phosphatase 64 U/L (39-117); Bilirubin,Direct < 0.2 mg/dL (0.0-0.3); Bilirubin,Total 0.3 mg/dL (0.0-1.0); Blood Urea Nitrogen 12 mg/dl (8-23); Carbon Dioxide 23 mmol/L (22-30); Chloride 110 mmol/L (96-108); Globulin 2.6 gm/dL (2.2-3.7); Glomerular Filtration Rate 71; Glucose 87 mg/dL (70-105); Lactate Dehydrogenase 148 U/L (94-250); Magnesium 1.9 mg/dL (1.6-2.5); Phosphorous 2.9 mg/dL (2.7-4.5); Potassium 3.4 mmol/L (3.3-5.1); Sodium 143 mmol/L (133-145); Triglycerides 207 mg/dl (<150); Uric Acid 3.1 mg/dL (2.5-8.0)
[2019-01-15] MEDS: METOPROLOL SUCCINATE 25 MG TAB.XL.24H PO SCH (08:26)
[2019-01-15] MEDS: ceFAZolin 1 GM VIAL IV SCH ×2 (08:27→14:27)
[2019-01-15] MEDS: TIMOLOL 0.5% OPHTH DROPS BOTTLE 5ML OU SCH (08:27)
[2019-01-15] MEDS: HEPARIN 5,000 UNIT/ML VIAL SQ SCH (08:27)
[2019-01-15] MEDS: DOCUSATE SODIUM 100 MG CAPSULE PO SCH (08:28)
[2019-01-15] MEDS: 0.9 % SODIUM CHLORIDE 10 ML SYRINGE IV SCH ×2 (08:28→14:00)
[2019-01-15] MEDS ORDERED: 0.9 % SODIUM CHLORIDE 10 ML SYRINGE IV PRN (08:30)
[2019-01-15] MEDS: ACETAMINOPHEN 325 MG TABLET PO PRN (08:42)
[2019-01-15] MEDS ORDERED: 0.9 % SODIUM CHLORIDE 10 ML SYRINGE IV SCH (09:00)
--- NOTE | 2019-01-15 11:26 | XRay Report ---
CLINICAL INFORMATION: PICC PLACEMENT COMPARISON: 01/07/2019 FINDINGS: Right PICC line tip overlies the SVC right atrial junction. Moderate cardiomegaly is unchanged. Mediastinum and pulmonary vessels are normal. Minor left basilar atelectasis noted. No infiltrates. Small left pleural effusion IMPRESSION: 1. No acute disease - interval resolution CHF. 2. PICC line satisfactory position Interpreted and Authenticated by: Tino Pulido 01/15/19
--- NOTE | 2019-01-15 12:10 | Discharge Summary ---
Medical - DS: Prov Patient information: Note initiated : 01/15/19 at 12:06 pm Service Date, if different from initiated Date: [] Patient: Aby Yeung 78 y/o F admitted on 01/07/19 for Urogenital Female. Chief Complaint: [] Date of admission: 01/07/19 18:10 Discharge date: 01/15/19 Primary care physician: Magdi Voss Consults: 01/07/19 Consult to Physician [CONS] Stat Comment: Consulting Provider: Aaron Clarke Reason For Exam: Physician to Consult Consult to Physician [CONS] Stat Comment: Consulting Provider: Israel Moya Reason For Exam: Physician to Consult 01/13/19 09:05 Consult to Infectious Disease [CONS] Routine Comment: bactermia Consulting Provider: Dario Nowak Reason For Exam: Physician to Consult Discharging clinician: Sara Argueta Medical - DS: Meds - Discharge Medications Prescriptions: ceFAZolin [Ancef] 2 gm IV Q8H #78 vial Oxybutynin Chloride [Ditropan] 5 mg PO TIDP PRN #90 tab PRN Reason: Bladder Spasms Active and Home Medications: Home Medications Ciprofloxacin [Cipro] 500 mg PO BID #14 tab 01/07/19 [Rx Last Taken Unknown] Latanoprost/Pf [Latanoprost 0.005% Eye Drop] 1 drp OU HS 01/07/19 [History Confirmed 01/07/19 Last Taken Unknown] Metoprolol Succinate [Toprol Xl] 25 mg PO BID 01/07/19 [History Confirmed 01/07/19 Last Taken Unknown] Ondansetron [Zofran ODT] 1 - 2 tab SL Q6 PRN 01/07/19 [History Confirmed 01/07/19 Last Taken Unknown] Timolol 0.5% Ophth Drops [Timoptic 0.5% Ophth Drops] 1 gtt OU DAILY 01/07/19 [History Confirmed 01/07/19 Last Taken Unknown] amLODIPine BESYLATE [Amlodipine Besylate] 5 mg PO DAILY 01/07/19 [History Confirmed 01/07/19 Last Taken Unknown] Medical - DS: Hosp Hospital course: Ms. Yeung is a 78 year old F who presents today with her Evans with approximately 1 week onset of progressive lower back/right flank pain along with worsening weakness. Symptoms symptoms were later followed with fevers, shaking chills, loss of appetite and nausea. Symptoms progressed to the point patient barely function and became very drowsy unable to think clearly. She was subsequently evaluated in the ER. Initial workup was consistent with septic shock with tachycardia 130s. CT scan revealed bilateral hydronephrosis along with air in urinary system. Urology was emergently consulted for decompression. Patient was started on broad antibiotic coverage/pressors and crystalloids. Patient was taken to the OR for stent placement. Hospitalist service was subsequently consulted for admission Patient was evaluated postprocedure following ureteral stent placement. He is currently on Levophed at 18 mics. She received 4 L of crystalloids. Started on vancomycin and Zosyn. Pancultures were ordered. Patient is drowsy but was able to answer simple questions. Denies chest pain, photophobia. Endorses to headache. Denies diarrhea, bloody urine. 01/08-patient overnight on pressors. Status post 5 L crystalloids and currently on maintenance. White count up from 5.7-29.4. However hemodynamics and urine output improving. Titrating vasopressors down to 3 mics Levophed. Patient more lucid and alert. Creatinine 30% rise since admission at 1.3. Patient remains critically ill but improved since admission. Status post bilateral ureteric stent. Continue management per guidelines. 01/09 Aby had a rough night last night. Including increased back pain she had episode of nausea vomiting while up to the commode. She had some reported blood clots in Darden bag which improved. She had some what appeared to be bright red blood around her soft stool. Feeling a little better at this time. Blood pressure low earlier this morning improved currently. At home she takes a combination of aspirin and caffeine for headaches. She has chills. Vasopressors have been off since yesterday at noon. Urine output was been pretty good all day yesterday night but decreased this morning. Creatinine elevated. 6/2 Much better last night and feels much better this morning. Has a mild headache but much improved. Diarrhea, C. difficile negative, using Imodium T-max 100.7 yesterday 8:00pm. Widely fluctuating WBC, has not needed any vasopressors since stopping on the . Creatinine similar yesterday 01/11 Slept all right between nurse checks and the alarming IV pole. Has a little bit of a cough and some achiness but otherwise no complaints and feeling better. Bowel movements are thickening up. 01/12 Slept on and off. No overnight events. Still very weak but overall feeling better. 01/13 Patient seen examined, no acute issues, tolerating po diet well she did have some headache yesterday Blood cultures positive, initially thought to be a contaminant, will get ID opinion on further treatment plan Pt has vertigo/ unable to use meclizine due to glaucoma, will see if PT can evaluate for sharonda maneuver. 01/14 Patient seen and examined, no acute overnight issues patient holding p.o. diet well. Patient afebrile, had some mild headache otherwise no new complaints or concerns blood cultures are negative which was sent yesterday. Patient is on vancomycin and Zosyn Infectious disease is following appreciate their input Anticipate PICC line tomorrow if the patient's cultures remain negative 01/15 Pt seen examined, no acute issues, tolerating po diet well, ambulating with help of PT, has good home support cultures are neg so far PICC placed, anceph 2gms q8 via picc for 13 more days, to complete a 2 week course as per ID follow up with ID in 2 weeks In summary Patient presented with back pain and weakness, was in septic shock, needing pressors, which was treated per protocol. Etiology was gonzález hydronephrosis and UTI Urine culture neg, gonzález stent placed by Dr Moya, renal function improved Pt developed GPC bacteremia, during hospital stay, coag neg, sensitive to penicillin, echo neg for endocarditis, seen by Infectious disease and advised 2 weeks of IV anceph with outpatient follow up No changes made to pt chronic home meds, except addition of Ditropan for bladder spasms, and short term course of antibiotics. Discharge diagnosis: Septic shock, hydronephrosis. GPC Bactermia - Time Spent with Patient Total time spent providing and/or coordinating discharge services: Greater than 30 minutes Medical - DS: Exam - Constitutional Vitals: Vital Signs Temp Pulse Resp BP BP Pulse Ox 01/15/19 08:00 97.7 F 16 152/76 95 01/15/19 03:35 98.1 F 66 16 131/75 95 01/14/19 23:50 98.1 F 66 20 131/72 95 01/14/19 19:05 98.2 F 77 20 110/68 94 01/14/19 15:31 97.9 F 16 137/72 94 Intake and Output 01/14/19 01/15/19 01/15/19 21:59 05:59 13:59 Intake Total 1030 100 250 Output Total 350 1050 600 Balance 680 -950 -350 Intake: IV 50 250 Zosyn 3.375 gm In Dextrose 5% 50 in Water 50 ml @ 100 mls/hr IV Q6H [facility] Rx#:[id number] Vancomycin 1,000 mg In Sodium 250 Chloride 0.9% 250 ml @ 250 mls/ hr IV Q12H [facility] Rx#:[id number] Oral 980 100 Output: Void Amount 350 1050 600 Other: Meal Dinner Percent of Meal Consumed 100% Urine Appearance Clear Clear Cloudy Urine Color Bright Yellow Bright Yellow Pale Stool Size Small Stool Color Brown Stool Consistency Soft # Voids 1 # Bowel Movements 2 Weight 167 lb Additional comments: Constitutional; Afebrile, cooperative, alert, not in distress. Respiratory system: Air Entry equal on both sides, No crackles or wheezing, no rhonchi. CVS- Rate rhythm regular, S1,S2 heard, no gallop, no rub. Abdomen- Soft nontender abdomen, no organomegaly, no tenderness, no guarding or rigidity, [employer]- AOOx3, moving all extremities, no gross focal deficit noted. Medical - DS: Data Labs on day of discharge: Labs from last 24 hours 01/15/19 01/15/19 03:34 03:34 WBC 10.5 RBC 3.22 L Hgb 9.9 L Hct 30.1 L MCV 93.5 MCH 30.7 MCHC 32.8 RDW 14.1 Plt Count 233 MPV 7.7 Gran % 55.0 Lymph % (Auto) 27.9 Ector % (Auto) 11.5 Eos % (Auto) 5.2 Baso % (Auto) 0.4 Gran # 5.8 Lymph # (Auto) 2.9 Ector # (Auto) 1.2 H Eos # (Auto) 0.6 Baso # (Auto) 0 Sodium 143 Potassium 3.4 Chloride 110 H Carbon Dioxide 23 Anion Gap 10.0 BUN 12 Creatinine 0.8 GFR Calculation 71 Glucose 87 Uric Acid 3.1 Calcium 8.0 L Phosphorus 2.9 Magnesium 1.9 Total Bilirubin 0.3 Direct Bilirubin < 0.2 GGT 30 AST 14 ALT 13 Alkaline Phosphatase 64 Lactate Dehydrogenase 148 Total Protein 5.5 L Albumin 2.9 L Globulin 2.6 Albumin/Globulin Ratio 1.1 Triglycerides 207 H Preliminary micro results at discharge 01/13/19 05:05 Blood Culture - Preliminary Blood 01/13/19 05:10 Blood Culture - Preliminary Blood 01/09/19 03:50 Blood Culture - Preliminary Blood Gram positive cocci 01/09/19 03:45 Blood Culture - Preliminary Blood Gram positive cocci Medical - DS: A/P - Patient/Caregiver Discharge Instructions Activity: increase activity as tolerated Diet: Regular Diet Additional Instructions: Take anceph 2gms every 8 hrs via CADD PUMP. Pump to be filled daily at pharmacy at [facility] Follow up with PCP in 1 week Follow up with Dr Nowak in 2 weeks Follow up with Dr Moya in 3- 4 weeks Take all your home medications as prescribed by your PCP, no changes made. Prescriptions: Ciprofloxacin [Cipro] 500 mg PO BID #14 tab - Follow up Plan Follow up with: Dario Nowak MD [Physician] - Magdi Voss MD [Primary Care Provider] - Israel Moya MD [Physician] - Disposition: Home, Self-Care Prognosis: Fair Rehab Potential: Fair I certify that the patient requires SNF services: No Overall status at discharge: patient is progressing back to baseline Medical - DS: Qual - VTE Deep Vein Thrombosis/Pulmonary Embolism Present on Admission: No
--- NOTE | 2019-01-15 13:35 | Infectious Disease Prog Note ---
Subjective Patient information: Note initiated : 01/15/19 at 1:21 pm Service Date, if different from initiated Date: [] Patient: Aby Yeung 78 y/o F admitted on 01/07/19 for Urogenital Female. Chief Complaint: [] Interval history: Pt feels better. Is able to walk around with walker. Denied any fever, chills, n /v. Diarrhea controlled with Immodium, neg for Cdiff few days ago. Discussed about PICC line, 2 weeks of IV Cefazolin and subseq follow up in ID clinic to decide subseq duration. Objective Objective Narrative: ao x 3, in nad no thrush chest cta s1 s2 normal no CVA tenderness mild tenderness in lower back and over both sacro-illiac joints - Vital Signs Vital signs: Vital Signs Temp Pulse Resp BP BP Pulse Ox 01/15/19 12:51 36.6 C 67 18 122/67 97 01/15/19 08:00 36.5 C 16 152/76 95 01/15/19 03:35 36.7 C 66 16 131/75 95 01/14/19 23:50 36.7 C 66 20 131/72 95 01/14/19 19:05 36.8 C 77 20 110/68 94 01/14/19 15:31 36.6 C 16 137/72 94 Intake and Output 01/14/19 01/15/19 01/15/19 21:59 05:59 13:59 Intake Total 1030 100 250 Output Total 350 1050 600 Balance 680 -950 -350 Intake: IV 50 250 Zosyn 3.375 gm In Dextrose 5% 50 in Water 50 ml @ 100 mls/hr IV Q6H [facility] Rx#:[id number] Vancomycin 1,000 mg In Sodium 250 Chloride 0.9% 250 ml @ 250 mls/ hr IV Q12H [facility] Rx#:[id number] Oral 980 100 Output: Void Amount 350 1050 600 Other: Meal Dinner Percent of Meal Consumed 100% Urine Appearance Clear Clear Cloudy Urine Color Bright Yellow Bright Yellow Pale Stool Size Small Stool Color Brown Stool Consistency Soft # Voids 1 # Bowel Movements 2 Weight 75.75 kg Intake & Output: Intake & Output 01/14/19 01/15/19 01/15/19 21:59 05:59 13:59 Intake Total 1030 100 250 Output Total 350 1050 600 Balance 680 -950 -350 Weight 75.75 kg Intake: IV 50 250 Zosyn 3.375 gm In Dextrose 5% 50 in Water 50 ml @ 100 mls/hr IV Q6H [facility] Rx#:[id number] Vancomycin 1,000 mg In Sodium 250 Chloride 0.9% 250 ml @ 250 mls/ hr IV Q12H [facility] Rx#:[id number] Oral 980 100 Output: Void Amount 350 1050 600 Other: Meal Dinner Percent of Meal Consumed 100% Urine Appearance Clear Clear Cloudy Urine Color Bright Yellow Bright Yellow Pale Stool Size Small Stool Color Brown Stool Consistency Soft # Voids 1 # Bowel Movements 2 - Lab 01/15/19 03:34 01/15/19 03:34 Most recent lab results Calcium 8.0 mg/dl (8.6-10.4) L 01/15/19 03:34 Phosphorus 2.9 mg/dL (2.7-4.5) 01/15/19 03:34 Magnesium 1.9 mg/dL (1.6-2.5) 01/15/19 03:34 Microbiology 01/13/19 05:05 Blood Blood Culture - Preliminary 01/13/19 05:10 Blood Blood Culture - Preliminary 01/07/19 09:48 Blood Blood Culture - Final Micrococcus species 01/09/19 03:50 Blood Blood Culture - Preliminary Gram positive cocci 01/07/19 05:45 Blood Blood Culture - Final 01/10/19 07:00 Urine - Clean Void Mid-Stream Urine Culture - Final 01/09/19 03:45 Blood Blood Culture - Preliminary Gram positive cocci 01/07/19 04:20 Urine - Catheterized Urine Culture - Final 01/08/19 08:46 Stool C. difficile GDH Antigen & Toxins - Final 01/07/19 23:40 Nose - Both Right and Left MRSA (PCR) - Final Medications Active Medications: Acetaminophen (Tylenol) 650 mg PO Q4-6HP PRN PRN Reason: PAIN/FEVER > 101 Last Admin: 01/15/19 08:42 Dose: 650 mg Documented by: Admin: 01/14/19 21:12 Dose: 650 mg Documented by: Admin: 01/13/19 00:10 Dose: 650 mg Documented by: Admin: 01/12/19 18:10 Dose: 650 mg Documented by: [email or web address] Admin: 01/12/19 09:34 Dose: 650 mg Documented by: [email or web address] Admin: 01/11/19 22:05 Dose: 650 mg Documented by: Admin: 01/11/19 08:16 Dose: 650 mg Documented by: [email or web address] Acetaminophen/Butalbital/Caffeine (Fioricet) 1 tab PO Q6HP PRN PRN Reason: Headache Last Admin: 01/15/19 08:43 Dose: 1 tab Documented by: Admin: 01/15/19 02:34 Dose: 1 tab Documented by: Admin: 01/14/19 19:15 Dose: 1 tab Documented by: Admin: 01/14/19 07:53 Dose: 1 tab Documented by: [email or web address] Admin: 01/13/19 20:29 Dose: 1 tab Documented by: Admin: 01/13/19 05:03 Dose: 1 tab Documented by: GRACIA Calcium Carbonate/Glycine (Tums) 500 mg CHEWED Q4HP PRN PRN Reason: Dyspepsia Last Admin: 01/10/19 21:27 Dose: 500 mg Documented by: Admin: 01/10/19 11:04 Dose: 500 mg Documented by: [email or web address] Cefazolin Sodium (Ancef) 2 gm IV Q8H [facility]; Protocol Last Admin: 01/15/19 08:27 Dose: 2 gm Documented by: NAVNEET Docusate Sodium (Colace) 100 mg PO BID [facility] Last Admin: 01/15/19 08:28 Dose: Not Given Documented by: NAVNEET Non-Brandie Reason: Loose Stool Admin: 01/14/19 21:07 Dose: Not Given Documented by: ANALIA Non-Admin Reason: Patient Request Admin: 01/14/19 07:54 Dose: Not Given Documented by: [email or web address] Non-Admin Reason: Patient Refused Admin: 01/13/19 20:28 Dose: Not Given Documented by: ANALIA Non-Admin Reason: Patient Request Admin: 01/13/19 08:02 Dose: Not Given Documented by: [email or web address] Non-Admin Reason: Loose Stool Admin: 01/12/19 21:31 Dose: Not Given Documented by: GRACIA Non-Admin Reason: Loose Stool Admin: 01/12/19 09:45 Dose: Not Given Documented by: JOSE Non-Admin Reason: Loose Stool Admin: 01/11/19 20:57 Dose: Not Given Documented by: CARMEN Non-Admin Reason: Loose Stool Admin: 01/11/19 08:02 Dose: Not Given Documented by: JOSE Non-Admin Reason: Loose Stool Admin: 01/10/19 21:27 Dose: Not Given Documented by: ANALIA Non-Admin Reason: Loose Stool Heparin Sodium (Porcine) (Heparin) 5,000 unit SQ Q12 [facility] Last Admin: 01/15/19 08:27 Dose: 5,000 unit Documented by: Admin: 01/14/19 21:06 Dose: 5,000 unit Documented by: Admin: 01/14/19 09:34 Dose: 5,000 unit Documented by: [email or web address] Admin: 01/13/19 20:28 Dose: 5,000 unit Documented by: Admin: 01/13/19 08:03 Dose: 5,000 unit Documented by: [email or web address] Admin: 01/12/19 21:31 Dose: 5,000 unit Documented by: Admin: 01/12/19 09:45 Dose: 5,000 unit Documented by: Admin: 01/11/19 22:04 Dose: Not Given Documented by: GRACIA Non-Admin Reason: Labs Outside of Range Admin: 01/11/19 08:17 Dose: 5,000 unit Documented by: Admin: 01/10/19 21:28 Dose: 5,000 unit Documented by: ANALIA Heparin Sodium (Porcine) (Heparin Flush) 2 ml IV Q12 [facility] Last Admin: 01/15/19 08:54 Dose: Not Given Documented by: NAVNEET Non-Admin Reason: no PICC at this time Magnesium Sulfate (Magnesium Sulfate) 2 gm in 50 mls @ 50 mls/hr IV UD PRN PRN Reason: MG = or < 1.7 Norepinephrine Bitartrate 16 (mg/ Sodium Chloride) 250 mls @ 9.38 mls/hr IV Q24HP PRN; Protocol PRN Reason: Hypotension Acetaminophen (Ofirmev) 1,000 mg in 100 mls @ 200 mls/hr IV Q6HP PRN PRN Reason: PAIN/FEVER > 101 Cefazolin Sodium 8 gm/ Sodium (Chloride) 200 mls @ 0 mls/hr IV ONCE ONE Stop: 01/15/19 14:01 Latanoprost (Xalatan Ophth Drops) 1 gtt OU HS [facility] Last Admin: 01/14/19 21:07 Dose: 1 gtt Documented by: Admin: 01/13/19 20:29 Dose: 1 gtt Documented by: Admin: 01/12/19 21:32 Dose: 1 gtt Documented by: Admin: 01/11/19 22:12 Dose: 1 gtt Documented by: Admin: 01/10/19 21:36 Dose: 1 gtt Documented by: ANALIA Loperamide HCl (Imodium) 2 mg PO PRN PRN PRN Reason: Diarrhea Last Admin: 01/14/19 13:53 Dose: 2 mg Documented by: [email or web address] Admin: 01/12/19 09:48 Dose: 2 mg Documented by: [email or web address] Admin: 01/11/19 08:01 Dose: 2 mg Documented by: [email or web address] Metoprolol Succinate (Toprol Xl) 25 mg PO BID [facility] Last Admin: 01/15/19 08:26 Dose: 25 mg Documented by: Admin: 01/14/19 21:06 Dose: 25 mg Documented by: Admin: 01/14/19 09:34 Dose: 25 mg Documented by: [email or web address] Admin: 01/13/19 20:28 Dose: 25 mg Documented by: Admin: 01/13/19 08:10 Dose: 25 mg Documented by: [email or web address] Admin: 01/12/19 21:32 Dose: 25 mg Documented by: Admin: 01/12/19 09:34 Dose: 25 mg Documented by: [email or web address] Ondansetron HCl (Zofran) 4 mg IV Q4-6HP PRN PRN Reason: Nausea And Vomiting Oxybutynin Chloride (Ditropan) 5 mg PO TIDP PRN PRN Reason: BLADDER SPASMS Potassium Chloride (Klor-Con) 40 meq PO DAILYP PRN PRN Reason: K+ < 3.5 Senna/Docusate Sodium (Senna Plus Tablet) 1 tab PO [facility] Last Admin: 01/14/19 21:08 Dose: Not Given Documented by: ANALIA Non-Admin Reason: Patient Request Admin: 01/13/19 20:28 Dose: Not Given Documented by: ANALIA Non-Admin Reason: Patient Refused Admin: 01/12/19 21:31 Dose: Not Given Documented by: GRACIA Non-Admin Reason: Loose Stool Admin: 01/11/19 20:57 Dose: Not Given Documented by: CARMEN Non-Admin Reason: Loose Stool Admin: 01/10/19 21:28 Dose: Not Given Documented by: ANALIA Non-Admin Reason: Loose Stool Sodium Chloride (Saline Flush) 10 ml IV Q8 [facility] Last Admin: 01/15/19 08:28 Dose: 10 ml Documented by: Admin: 01/14/19 21:08 Dose: 10 ml Documented by: Admin: 01/14/19 13:19 Dose: 10 ml Documented by: [email or web address] Admin: 01/14/19 06:00 Dose: 10 ml Documented by: Admin: 01/13/19 20:28 Dose: 10 ml Documented by: Admin: 01/13/19 17:34 Dose: 10 ml Documented by: [email or web address] Admin: 01/13/19 11:19 Dose: 10 ml Documented by: [email or web address] Admin: 01/13/19 05:04 Dose: 10 ml Documented by: Admin: 01/12/19 21:33 Dose: 10 ml Documented by: Admin: 01/12/19 18:10 Dose: 10 ml Documented by: [email or web address] Admin: 01/12/19 09:34 Dose: 10 ml Documented by: [email or web address] Admin: 01/11/19 20:58 Dose: Not Given Documented by: CARMEN Non-Admin Reason: see other charing Admin: 01/11/19 18:45 Dose: 10 ml Documented by: Admin: 01/11/19 18:05 Dose: 10 ml Documented by: [email or web address] Admin: 01/11/19 05:23 Dose: 10 ml Documented by: Admin: 01/10/19 23:40 Dose: 10 ml Documented by: Admin: 01/10/19 15:42 Dose: Not Given Documented by: [email or web address] Non-Admin Reason: Continuous IV Sodium Chloride (Saline Flush) 10 ml IV UD PRN PRN Reason: FLUSH Sodium Chloride (Saline Flush) 10 ml IV Q12 [facility] Last Admin: 01/15/19 08:56 Dose: Not Given Documented by: NAVNEET Non-Admin Reason: no PICC line Timolol Maleate (Timoptic 0.5% Ophth Drops) 1 gtt OU DAILY [facility] Last Admin: 01/15/19 08:27 Dose: 1 drop Documented by: Admin: 01/14/19 09:34 Dose: 1 drop Documented by: [email or web address] Admin: 01/13/19 08:04 Dose: 1 drop Documented by: [email or web address] Admin: 01/12/19 09:44 Dose: 1 drop Documented by: [email or web address] Admin: 01/11/19 09:54 Dose: 1 drop Documented by: [email or web address] Assessment and Plan - Narrative A/P Narrative: A: 1. Staphylococcus lugdunensis bacteremia: - 2/2 bottles from 01/09 grew S lugdunensis - Isolation of Micrococcus sp on 01/07 suggests contamination - repeat blood Cx from 01/13 neg so far 2. B/l ureteral obstruction with mod hydronephrosis: s/p b/l ureteral stenting with partial resolution of hydronephrosis - Repeat CT with contrast 01/13 suggest functionality and correct placement - Cr near baseline 3. Septic shock: resolved - Around admission based on SOFA score >2, pt requiring vasopressors despite IV fluids resuscitation, lactic acid >2 4. Pyelonephritis with presence of air in urinary tract (at level of kidneys, bladder) - urine culture neg, but clinical symptoms and signs at admission suggestive - resolved - s/p 7 days of IV Zosyn Recommendations: - Stop IV Vanc - PICC line placement today - Start IV Cefazolin 2 gm q8 hrs. Pt will get it at home through a CADD pump - Start date: 01/13/19 Stop date: 01/27/19 - F/u labs: CBC, BMP once weekly and ESR & CRP every other week. Fax to [phone] - ID clinic appointmentat 10:15 am on 01/27/19 Dario Nowak MD Infectious diseases
[2019-01-15] MEDS ORDERED: ceFAZolin 8 GM in 0.9 % SODIUM CHLORIDE 200 ML IV ONE (14:00)
== END 2019-01-15 15:45 | disposition home or self-care (01) | DRG 853 ==
LOC: ED 03:48 → SUR 15:47 → ICU 18:10 → MEDSUR 01-10 12:20
PROVIDERS: ADMIT Internal Medicine; ATTEND Internal Medicine